=== PATIENT | male | born 1960 | race Caucasian/White ===

== ENCOUNTER → 2019-12-30 13:02 | Outpatient (CLI) | payer OTHER, SELFPAY ==
--- NOTE | 2019-12-30 13:24 | MRI_ITS ---
STUDY: MRI TEMPOROMANDIBULAR JOINTS REASON FOR EXAM: Male, 59 years old. TMJ syndrome, left sided jaw cracking/popping; jaw locks at times TECHNIQUE: Standardized fat and water weighted pulse sequences were obtained in the axial and oblique planes. COMPARISON: None. FINDINGS: Left TMJ: Cyst/erosions at the left ventricular condyle. Lack of translation during open mouth imaging suggests jaw locking. Degenerative articular disc in position during closed mouth view. Nontranslating disc during open mouth view. No muscle atrophy. Maxillary sinus disease. Right TMJ: Cyst/erosions at the right mandibular condyle. Markedly thinned right-sided temporal bone (sagittal image 25 series 7). Lack of translation during open mouth imaging. Degenerative articular disc in position during closed mouth view. Nontranslating disc during open mouth view. No muscle atrophy. Maxillary sinus disease. MRI/TMJ/Bilat IMPRESSION: Bilateral mandibular condyle cysts/erosions Markedly thinned right-sided temporal bone Lack of transition during open mouth view (jaw locking) Bilateral degenerative articular disks with nontranslation during open mouth view Bilateral maxillary sinus disease Electronically Signed: Kiran Solano DO at 15:29 EDT Tel , Service support ,
== END ==
PROVIDERS: PCP Family Medicine; Referring Provider Family Medicine; Visit Provider Family Medicine
DX: M26.603 Bilateral temporomandibular joint disorder, unspecified (principal)
CPT/HCPCS: 70336

== ENCOUNTER 2020-12-22 06:02 | Outpatient (RCR) | payer OTHER, SELFPAY ==
[2020-12-22] MEDS: COVID-19 VACC, MRNA(PFIZER)/PF 30 MCG/0.3 ML SYRINGE IM (14:40)
[2021-01-12] MEDS: COVID-19 VACC, MRNA(PFIZER)/PF 30 MCG/0.3 ML SYRINGE IM (14:24)
== END 2021-03-20 23:59 ==
LOC: IMMUN 06:02
PROVIDERS: PCP Family Medicine; Referring Provider Family Medicine; Visit Provider Family Medicine
DX: Z23 Encounter for immunization (principal)
CPT/HCPCS: 0001A; 0002A; 91300

== ENCOUNTER 2021-05-02 15:01 | Outpatient (RCR) | payer SELFPAY ==
--- NOTE | 2021-09-25 16:20 | HP.PT.NRP ---
ISAAC Cain SARAH was seen in my office for initial evaluation on . The following Plan of Care was established for this patient: This patient was last seen in our office 05/02/21. Pertinent comments regarding their Physical therapy will appear below: Pt. was seen for self pay DN. Pt. has not been seen in ~5 months and will be DC from PT at this point in time. At this point I will be discontinuing this patient from physical therapy. I would be happy to see this patient again in the future if found appropriate by the physician. Thank you! Don Cabrera, JATINDERT
== END 2021-05-02 19:00 | disposition home or self-care (01) ==
LOC: PT 15:01
PROVIDERS: PCP Family Medicine
DX: R69 Illness, unspecified (principal)

== ENCOUNTER 2021-08-20 05:40 | Day surgery (SDC) | payer OTHER, SELFPAY ==
[2021-08-20] VITALS (11 sets, daily range): BP systolic 113–143; BP diastolic 79–99; PULSE 72–95; RESP 16; TEMP 36.3–37; O2SAT 96–100; BMI 27.0
--- NOTE | 2021-08-20 | KNEE_PTH ---
PATIENT: ISAAC SARAH LOC: [facility] [place][id number] AGE/SX: 60/M ROOM: RE08/20/[address]: Dr. Nitesh Alvarado DO : 1960 BED: DIS: 08/20/2021 SPEC #: [id number] RECD: 08/20/21 10:43 STATUS: AMY REYumiko #: [id number] CARMELA: 08/20/21 00:[address]: Nitesh Alvarado DEPT: SURGICAL PATHOLOGY RECD BY: Abhijit Wooten ENTERED: 08/20/21 13:29 SP TYPE: TOTAL KNEE OTHR DR: Dr. Ian Walter MD Tissues: Knee, NOS Procedures: Decalcification bone/plaque Surgery Specimen Level IV HEADER OPERATION: Robotic assist right total knee replacement PRE-OP DIAGNOSIS: Right knee osteoarthritis TISSUE SUBMITTED: Debrided bone and tissue right knee MICROSCOPIC DIAGNOSIS Bone and tissue, right knee, total knee replacement/resection: Pieces of bone with degenerative osteoarthritic changes. Fibroadipose tissue, fibroconnective tissue and reactive synovial tissue. ARMAND:vini 08/23/2021 MICROSCOPIC DESCRIPTION Slides are reviewed. GROSS DESCRIPTION Received is one container designated debrided bone and tissue right knee. The specimen consists of multiple fragments of wade-yellow bone measuring in aggregate 11 x 10 x 4 cm. Also in the specimen container are multiple fragments of yellow-white soft tissue measuring in aggregate 9 x 8 x 3 cm. A number of bony fragments contain articular surfaces consistent with tibial plateau and femoral condyle and displaying prominent osteophyte formation, eburnation, and bone erosion. Baggage Handler sections are submitted in two cassettes as follows: 1 - soft tissue, 2 - bone after decalcification. / ARMAND:vini 08/20/21 TC:5 [facility]: [id number], [id number]
[2021-08-20] MEDS: Lactated Ringers 1,000 ML 15 ML IV ×2 (06:15→09:30)
[2021-08-20] MEDS: Acetaminophen 500 MG Tablet 1000 MG PO ×2 (06:49→14:00)
[2021-08-20] MEDS: Gabapentin 600 MG Tablet PO (06:49)
[2021-08-20 06:51] LABS: Bedside Glucose 125 mg/dL (70-110)
[2021-08-20 07:07] LABS: Magnesium 2.3 mg/dL (1.6-2.6)
[2021-08-20] MEDS: Cefazolin 2 GM in 0.9% Normal Saline 100 ML IV (08:25)
--- NOTE | 2021-08-20 10:51 | RAD_ITS ---
STUDY: X-RAY - RIGHT KNEE REASON FOR EXAM: Male, 60 years old. tkr -- in PACU TECHNIQUE: 2 view(s) of the knee. COMPARISON: None. FINDINGS: Normal visualized distal femur. Normal visualized proximal tibia and fibula. Normal proximal tibiofibular articulation. The patient is status post total knee replacement. There is good alignment. Postoperative soft tissue changes. RAD/Knee 1 or 2 Views IMPRESSION: Status post total knee replacement. Postoperative soft tissue changes. Electronically Signed: Dimitrios May MD at 15:53 EST , Service support ,
[2021-08-20] MEDS: Lactated Ringers 1,000 ML 999 ML IV (10:57)
--- NOTE | 2021-08-20 11:10 | SUR.PHASEI ---
NC 4L, ERAS protocol with etCO2 monitoring. Patient tolerating. Ice pack applied. Julius and scds. Awaiting block to be performed by anesthesia.
--- NOTE | 2021-08-20 11:52 | PCM.OPRPT ---
Report of Operation Date of Procedure: 08/20/21 Pre-Operative Diagnosis: OA right knee Post-Operative Diagnosis: same Surgery/Procedure Performed:: Right TKR Description of Surgical Findings:: Report of Operation Date of Procedure: 08/20/21 Preoperative Diagnosis: [right ] knee primary osteoarthritis Postoperative Diagnosis: [right ] knee primary osteoarthritis Operation: Robotic Assisted Knee Total Arthroplasty, [ right ] knee Surgeon: Dr Nitesh Alvarado DO Supervisor Finishing: Az Espinoza PA-C Anesthesia: spinal Anesthesiologist: Kiran Lopez M.D. Findings: Stable knee with good patella tracking Specimen(s): Bony cuts Complications: No intraoperative complications Estimated Blood Loss: 20 cc IV Fluids: 1000 cc crystalloid Implants Used: 1. [place] Triathlon press-fit CR size [address] [place] Triathlon size 6 tibia 3. 35 mm patella 4. 10 mm CS polyethylene Brief History Operative Indications: [ (60 y/o male) ] with history of [right ] knee osteoarthrosis with radiographic findings with loss of joint space, osteophyte formation and subchondral sclerosis. Failed conservative measures as mentioned in the H&P. Discussion of total knee arthroplasty as well as risk and benefits were discussed with the patient including but not limited to blood loss, DVTs, PEs, neurovascular damage, general risk of anesthesia including loss of life, and stiffness or instability were also discussed with the patient. Patient demonstrated understanding and was able to sign informed consent. Procedure: On the date of procedure, patient's [ right ] lower extremity was marked in the preoperative area. The patient was then taken back to the operating room where that patient was placed on the table in the supine position. All bony prominences were identified and well-padded. Anesthesia assumed control of the C-spine and airway throughout the remainder of the procedure. A tourniquet was placed on the [ right ] upper thigh and the leg was prepped in a sterile fashion. The surgeon then scrubbed at this time. Upon reentering the room, the [ right ] lower extremity was draped in a standard orthopedic fashion. A timeout was then called and everyone agreed upon the side, the site, the procedure to be performed, patient's identity and antibiotics given. Esmarch bandage was used to exsanguinate the extremity and the tourniquet was placed up to 250 mmHg with the knee in flexion. A midline skin incision was made and a sharp dissection was taken down through skin, subcutaneous tissue and fat. The standard medial parapatellar incision was made and the patella was subluxed laterally. An appropriate deep MCL release was done and the fat pad was resected. Our attention was then directed to the patella. The patella was everted and a flat resection was made. The knee was then flexed up and 2 femoral pins were placed inside the incision and 2 tibial pins were placed outside the incision in the medial tibia bicortically. Once this was completed, the 2 checkpoints in the femur and tibia were placed. Knee was then flexed up and the bony landmarks were registered. Once the was completed, the knee taken through range of motion and manually stressed allowing us to plan for an appropriate tibial cut. The robotic arm was brought into the field sterilely and checkpoint and saw were registered. Based on the patient's deformity, the tibial cut was made in [2 degrees varus ]. At this time, the tensioner was then placed in the joint and ligament tension was checked at 90 degrees and full extension. Based on the patient's ligamentous tension, appropriate adjustments were made to the operative plan and ligament releases were done. Once we were happy with our operative plan with balanced flexion and extension gaps, our attention was directed to the femur. The robot was brought into the field sterilely and registered. Posterior condylar cuts, anterior chamfer cuts and anterior cuts were appropriately made for a [size 6 ] femur. When these were completed, the saws were switched out in the distal femoral and posterior chamfer cuts were made. Protecting the soft tissue throughout this time. A [ size 6 ] base plate was selected. The knee was flexed to 90 degrees and soft tissues and posterior osteophytes were removed from the joint. 40 cc of the periarticular injection was injected into the posterior medial corner of the joint. The appropriate trials were then placed on the femur and tibia. A trial polyethylene was trialed to ensure proper balancing and stability of the knee. The appropriate tibial internal rotation was then marked with a bovie. Our attention was then directed to the patella. The lug holes were drilled and the patella trial was placed. Patellar tracking was checked and deemed appropriate. Once we were happy, lug holes were drilled for the femur and trial components were removed. The tibia was subluxed and pinned into place and the keel was punched and drilled appropriately. Final components were verified and opened. The wound was copiously irrigated with normal saline. The components were impacted into place with the tibia, femur and finally the patella. The trial poly component was placed and the knee was placed in full extension. The tracking, alignment and balance were verified and a [10 mm CS ] polyethylene component was placed. Once the final components were placed an Irrisept lavage was performed and the wound was copiously irrigated with normal saline solution and the periarticular injection was given. the wound was closed in a layer-hidalgo fashion using #1 vicryl interrupted sutures for the arthrotomy, 2-0 interrupted vicryl suture for the subcuticular layer and payal for final skin closure. A sterile compressive dressing was then placed. The patient was then awakened from anesthesia, transferred to the rhillrose and transferred to the PACU for recovery. My physician activities assistant was a vital part of this case. He was important in appropriate retraction during the case, and protection of soft tissues during bony cuts. His intimate knowledge of the case and my steps aided in safe and expedient completion of the procedure as well as appropriate position of the leg during the case. He was also vital in assisting with closure under my direct supervision. Due to the complexity of this case, robotic arm was used to assist in the surgery to improve accuracy and clinical outcomes. Post-op Plan: DVT ppx; ASA 81 mg BID, thigh high compression stockings Follow up: in office in 2 weeks for wound check PT: to start POD #0 at hospital, outpatient PT should be arranged. Preoperative antibiotic: Ancef 2 grams IV Nitesh Alvarado DO Surgeon: Nitesh Alvarado bacon stringer: Az Espinoza Type of Anesthesia: Spinal Anesthesiologist: Kiran Lopez Estimated Blood Loss (mL): 20 cc Fluids Replaced: 1000 cc crystalloid Admit VTE Documentation VTE Present on Admission: No VTE Mechan Device Prophylaxis: SCD's and Thigh High MICHELLE Hose VTE Pharm Prophylaxis ordered?: Yes
--- NOTE | 2021-08-20 14:10 | SUR.PHASEII ---
PATIENT C/O PAIN OVER BLADDER, HAS BEEN INCONTINENT A MODERATE AMOUNT. MAY STRAIGHT CATH PER DR MORALES. STRAIGHT CATH SUCCESSFUL, DRAINED 1300 ML CLEAR, YELLOW URINE. TOLERATED WELL. STATES HE FEELS MUCH IMPROVED. CHANGED ATTENDS, SKIN CARE PROVIDED.
--- NOTE | 2021-08-20 14:53 | SUR.PHASEII ---
C/O PAIN OVER BLADDER, FIRMNESS AND TENDERNESS NOTED. PAGED DR MORALES FOR STRAIGHT CATH ORDER.
== END 2021-08-20 17:20 | disposition home or self-care (01) ==
LOC: SDC 05:44 → AC 05:44
PROVIDERS: Anesthesiology; PCP Family Medicine; Referring Provider Orthopaedic Surgery; Visit Provider Orthopaedic Surgery
PROC: 0SRC0JZ Replacement of Right Knee Joint with Synthetic Substitute, Open Approach (ICD-10-PCS; CPT 27447; principal; 2021-08-20 08:00)
DX: M17.11 Unilateral primary osteoarthritis, right knee (principal); H91.93 Unspecified hearing loss, bilateral; Z97.4 Presence of external hearing-aid; Z87.891 Personal history of nicotine dependence
CPT/HCPCS: 01402; 27447; 64445; 76942; S2900; 73560; 82962; 83735; 88305; 88311; 97162; C1776; J7120

== ENCOUNTER → 2022-05-31 | Outpatient (CLI) | payer OTHER, SELFPAY | END | disposition home or self-care (01) | LOC: BIMLAB 14:14 | PROVIDERS: PCP Nurse Practitioner Family; Referring Provider Nurse Practitioner Family; Visit Provider Nurse Practitioner Family | DX: Z00.00 Encounter for general adult medical examination without abnormal findings (principal) | CPT/HCPCS: 36415 ==

== ENCOUNTER → 2023-12-10 | Outpatient (CLI) | payer OTHER, SELFPAY ==
[2023-12-10 12:57] LABS: ALB/GLOB Ratio 1.1 RATIO (0.9-2.4); AST(SGOT) 25 U/L (15-37); Alanine Aminotransfer ALT/SGPT 27 U/L (16-61); Albumin, Serum 3.7 g/dL (3.2-5.0); Alkaline Phosphatase 85 U/L (45-117); Anion Gap 5 (5-15); BUN 10 mg/dL (7-18); BUN/Creat Ratio 10.9 RATIO (10-20); Calcium,Total 9.1 mg/dL (8.5-10.1); Chloride 110 mmol/L (98-107); Cholesterol 147 mg/dL (200); Creatinine, Serum 0.92 mg/dL (0.70-1.30); EST Glomerular Filtration Rate 88 mL/min (>60); Est Glom Filt Rate - Afr Amer 107 mL/min (>60); Globulin 3.5 g/dL (2.2-4.2); Glucose 75 mg/dL (74-106); High Density Lipoprotein 54 mg/dL; Potassium 4.4 mmol/L (3.5-5.1); Protein, Total 7.2 g/dL (6.4-8.2); Sodium Level 142 mmol/L (136-145); Triglycerides 46 mg/dL; Very Low Density Lipoprotein 9 mg/dL (5-40)
[2023-12-10 13:14] LABS: Hemoglobin A1c 5.3 % (3.8-5.6)
== END | disposition home or self-care (01) ==
LOC: BIMLAB 09:37
PROVIDERS: PCP Family Medicine; Visit Provider Family Medicine
DX: R53.83 Other fatigue (principal); Z86.79 Personal history of other diseases of the circulatory system
CPT/HCPCS: 36415; 80053; 80061; 83036

== ENCOUNTER → 2023-12-17 | Outpatient (CLI) | payer OTHER, SELFPAY ==
[2023-12-17 12:30] LABS: Absolute Lymphocyte Count 1.23 X10^3/uL (0.83-4.51); Absolute Neutrophil Count 3.8 X10^3/uL (2.0-7.7); Basophil# 0.06 X10^3/uL; Eosinophil# 0.22 X10^3/uL; Eosinophils% 3.8 % (0-5); Hematocrit 42.7 % (40-54); Hemoglobin 14.4 g/dL (13.0-16.5); Lymphocyte # 1.23 X10^3/ul (0.83-4.51); Lymphocyte % 21.1 % (19-41); Mean Corp Hgb Conc 33.7 g/dL (32-36); Mean Corpuscular Hgb 31.6 pg (27.0-32.0); Mean Corpuscular Volume 93.8 fL (80-94); Mean Platelet Vol. 9.4 fl (6.2-12.0); Monocyte# 0.52 X10^3/uL; Monocyte% 8.9 % (0-10); NRBC Flagged by Analyzer 0 % (0-5); Neutrophil # 3.78 X10^3/uL (2.7-7.7); Platelet Count 332 K/mm3 (150-450); RBC Distribution Width CV 12.5 % (11.6-14.6); RBC Distribution Width SD 43.2 fl (35.1-43.9); Red Blood Count 4.55 M/mm3 (4.6-6.2); White Blood Count 5.8 K/mm3 (4.4-11.0)
[2023-12-17 12:58] LABS: PSA,Total - Annual Screen 0.68 ng/mL (0.00-4.00)
== END | disposition home or self-care (01) ==
LOC: BIMLAB 09:37
PROVIDERS: PCP Family Medicine; Visit Provider Family Medicine
DX: Z12.5 Encounter for screening for malignant neoplasm of prostate (principal); R53.83 Other fatigue
CPT/HCPCS: 36415; 84153; 85025; G0103

== ENCOUNTER → 2024-03-09 | Outpatient (CLI) | payer OTHER, SELFPAY ==
[2024-03-09 12:58] LABS: ALB/GLOB Ratio 1.4 RATIO (0.9-2.4); AST(SGOT) 24 U/L (15-37); Alanine Aminotransfer ALT/SGPT 20 U/L (16-61); Albumin, Serum 3.9 g/dL (3.2-5.0); Alkaline Phosphatase 77 U/L (45-117); Anion Gap 7 (5-15); BUN 10 mg/dL (7-18); BUN/Creat Ratio 10.9 RATIO (10-20); Calcium,Total 9.2 mg/dL (8.5-10.1); Chloride 107 mmol/L (98-107); Creatinine, Serum 0.91 mg/dL (0.70-1.30); EST Glomerular Filtration Rate 89 mL/min (>60); Est Glom Filt Rate - Afr Amer 107 mL/min (>60); Globulin 2.8 g/dL (2.2-4.2); Glucose 84 mg/dL (74-106); Potassium 4.5 mmol/L (3.5-5.1); Protein, Total 6.7 g/dL (6.4-8.2); Sodium Level 139 mmol/L (136-145)
== END | disposition home or self-care (01) ==
LOC: BIMLAB 08:11
PROVIDERS: PCP Family Medicine; Visit Provider Family Medicine
DX: Z86.79 Personal history of other diseases of the circulatory system (principal)
CPT/HCPCS: 36415; 80053

== ENCOUNTER 2024-12-01 08:30 | Day surgery (SDC) | payer MEDICARE, SELFPAY ==
[2024-12-01] VITALS (7 sets, daily range): BP systolic 120–133; BP diastolic 82–122; PULSE 55–68; RESP 16; TEMP 36–36.2; O2SAT 95–99; BMI 29.6
--- NOTE | 2024-12-01 09:34 | PRE.ANES_ITS ---
ASA Classification* ASA Classification ASA Classification: 2 Assessment & Plan Anesthesia* Anesthesia Assessment Anesthesia Assessment: Discussed sedation and/or anesthesia options, risks, benefits, and alternatives with patient/parents/legal guardian/POA. Questions invited. The patient/parents/legal guardian/POA seems to understand and agrees to proceed with anesthesia plan. Reviewed the physical assessment, medical history, allergy history and patient home medications list prior to surgery/procedure/anesthetic and documented any changes. Performed airway and anesthesia risk assessments. Anesthesia Type Anesthesia Type: MAC History Source History Obtained from:: Patient and Chart Anesthesia Focused Assessment* Temperature: 97.1 F Pulse Rate: 68 Blood Pressure: 133/89 Respiratory Rate: 16 Pulse Ox: 99 Oxygen Delivery Method: Room Air Airway Assessment Mouth opens: >3 cm Mallampati Score: III Teeth Condition: Missing (Missing 1 right upper molar.) Neck Range of motion (ROM): Full ROM Focused Labs Anesthesia Preop lab: CBC WBC 5.8 K/mm3 (4.4-11.0) 12/17/23 09:37 12/17/23 RBC 4.55 M/mm3 (4.6-6.2) L 12/17/23 09:37 12/17/23 Hgb 14.4 g/dL (13.0-16.5) 12/17/23 09:37 12/17/23 Hct 42.7 % (40-54) 12/17/23 09:37 12/17/23 Plt Count 332 K/mm3 (150-450) 12/17/23 09:37 12/17/23 CHEMISTRY Potassium 4.5 mmol/L (3.5-5.1) 03/09/24 08:11 03/09/24 Sodium 139 mmol/L (136-145) 03/09/24 08:11 03/09/24 Magnesium 2.3 mg/dL (1.6-2.6) 08/20/21 06:30 08/20/21 BUN 10 mg/dL (7-18) 03/09/24 08:11 03/09/24 Creatinine 0.91 mg/dL (0.70-1.30) 03/09/24 08:11 03/09/24 Glucose 84 mg/dL (74-106) 03/09/24 08:11 03/09/24 POC Glucose 125 mg/dL (70-110) H 08/20/21 06:38 08/20/21 COAG Pre-Assessment Diagnosis/Proposed Procedure Planned Operative Procedure(s): Colonoscopy Anesthesia History 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 When Was Last Pacemaker Check QUESTION #4 FULL TEXT: You/Your Family Experience fever (hyperthermia) with Anesthesia Last Oral Intake Last Oral intake: Last Oral Intake NPO since 05:45 12/01/24 08:50 Meds taken in AM with sips of water? 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 Female No 11/29/24 12:44 HX of Motion Sickness No 11/29/24 12:44 HX of N/V After Surgery No 11/29/24 12:44 Non-Smoker Yes 11/29/24 12:44 Duration of Surgery greater No 11/29/24 12:44 than 60 minutes Number of Risk Factors 1 11/29/24 12:44 PONV Score Low Risk 11/29/24 12:44 Height & Weight Height & Weight: Anesthesia: Height & Weight Height 6 ft 1 in 12/01/24 08:50 Weight: 102 kg 12/01/24 08:50 Body Mass Index (BMI) 29.6 12/01/24 08:50 Respiratory Assessment Respiratory Assessment - router operator: Respiratory Tract Infection Hx - router operator Hx Respiratory Tract Infection No 11/29/24 12:44 STOP Sleep Apnea STOP Sleep Apnea - router operator: STOP Sleep Apnea - router operator Hx Hypertension No 11/29/24 12:44 Hx Sleep Apnea No 11/29/24 12:44 CPAP BIPAP Do you snore loudly (louder No 11/29/24 12:44 than talking or can be heard Do you often feel tired/ No 11/29/24 12:44 fatigued/ sleepy during daytime? Has anyone observed you stop No 11/29/24 12:44 breathing during sleep? STOP Results Negative 11/29/24 12:44 QUESTION #5 FULL TEXT : Do you snore loudly (louder than talking or can be heard through closed doors)? 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 Specify any problems Hx of Preganancy in last 3 N/A 11/29/24 12:44 Months Nurse Filling Out Transfusion MGRITERI 11/29/24 12:44 & Questions: Date: 11/29/24 11/29/24 12:44 Time: 12:46 11/29/24 12:44 Patient unable to answer at this time (ie. confused, unrespo /Reproduction History /Reproductive History - router operator: /Reproductive Hx- router operator Hx Now Gestational Age (in weeks): EDC: Hx Hx Para Hx Section SAB No 05/30/24 07:50 PFSH Medical History Restless legs Heartburn Encounter for preventative adult health care examination Hx of degenerative disc disease Hx of osteoarthritis History of hearing problem History of back problems Wears hearing aid Wears glasses Arthritis Former smoker Leg cramps History of pain when walking History of stress test Home Medications ?Medication ?Instructions ?Recorded ?Last Taken ?Type meloxicam 15 mg tablet 15 mg PO DAILY PRN arthritis #90 09/15/24 Unknown Rx tabs aspirin 81 mg tablet,delayed 81 mg PO QDAY 09/22/24 Un known History release (Adult Low Dose Aspirin) diphenhydramine HCl 25 mg capsule 25 mg PO Q8H PRN sle ep 11/29/24 Unknown History (Benadryl) pantoprazole 40 mg tablet,delayed 40 mg PO QDAY #30 ta bs 11/30/24 Unknown Rx release Allergy/AdvReac Type Severity Reaction Status Date / Time No Known Allergies Allergy Verified 12/01/24 08:47 Family History Daughter Anemia Anxiety Thyroid disorder Grandmother Colon cancer Paternal Mother Diabetes Myocardial infarction Heart disease Hypertension Father Dementia Brother Diabetes Surgical History Hx of colonoscopy History of total right knee replacement History of left knee replacement Hx of rotator cuff surgery Hx of rotator cuff surgery Social History household members: spouse housing: house current occupational status: retired current occupation: [employer] sexually active: Yes Smoking Status: Former smoker quit status: quit date established alcohol intake: current alcohol intake frequency: holidays/special occasions only substance use type: does not use what type of physical activity do you participate in: walking and bicycling frequency: 3-4 times per week seatbelt use: always do you feel safe at home: Yes Review of Systems (Anesthesia) ROS Narrative System reviewed and no additional complaints, except as documented.
--- NOTE | 2024-12-01 09:45 | COLBX_PTH ---
PATIENT: ISAAC SARAH LOC: [place] U#:[id number] AGE/SX: 64/M ROOM: RE12/01/[address]: Dr. Aditya Cummings DO : 1960 BED: DIS: 12/01/2024 SPEC #: [id number] RECD: 12/01/24 13:36 STATUS: AMY GALEN #: [id number] CARMELA: 12/01/24 09:[address]: Aditya Cummings DEPT: SURGICAL PATHOLOGY RECD BY: Solomon Spangler ENTERED: 12/01/24 14:21 SP TYPE: COLON BX OTHR DR: Dr. Joe Squires, Tissues: Ascending colon Procedures: Surgery Specimen Level IV HEADER OPERATION: Colonoscopy with biopsy PRE-OP DIAGNOSIS: Encounter for screening for malignant neoplasm of colon TISSUE SUBMITTED: Ascending colon polyp biopsy MICROSCOPIC DIAGNOSIS Ascending colon polyp, biopsy: Tubular adenoma. 12/02/2024 MICROSCOPIC DESCRIPTION Slides are reviewed. GROSS DESCRIPTION Received in fixative is one container labeled with the patient's name and designated Ascending colon polyp biopsy. The specimen consists of two irregular fragments of light wade soft tissue that in aggregate measure 0.3 x 0.2 x 0.1 cm. The specimen is totally submitted in one cassette. 12/01/2024 TC:1 CPT:31799
--- NOTE | 2024-12-01 10:18 | PCM.HP.STD ---
HPI - General General Date of Admission: 12/01/24 Date of Service: 12/01/24 Chief Complaint: Screening colonoscopy HPI Narrative ISAAC SARAH, is a 64 M who presents today for screening colonoscopy. He has not had a colonoscopy in approximately 19 years. Already has a family history of colon cancer. He has a past medical history of gastroesophageal reflux disease for which is controlled on pantoprazole and some mild arthritis which is controlled on meloxicam. [facility] Medical History Restless legs Heartburn Encounter for preventative adult health care examination Hx of degenerative disc disease Hx of osteoarthritis History of hearing problem History of back problems Wears hearing aid Wears glasses Arthritis Former smoker Leg cramps History of pain when walking History of stress test Home Medications ?Medication ?Instructions ?Recorded ?Last Taken ?Type meloxicam 15 mg tablet 15 mg PO DAILY PRN arthritis #90 09/15/24 Unknown Rx tabs aspirin 81 mg tablet,delayed 81 mg PO QDAY 09/22/24 Unknown History release (Adult Low Dose Aspirin) diphenhydramine HCl 25 mg capsule 25 mg PO Q8H PRN sleep 11/29/24 Unknown History (Benadryl) pantoprazole 40 mg tablet,delayed 40 mg PO QDAY #30 tabs 11/30/24 Unknown Rx release Allergy/AdvReac Type Severity Reaction Status Date / Time No Known Allergies Allergy Verified 12/01/24 08:47 Family History Daughter Anemia Anxiety Thyroid disorder Grandmother Colon cancer Paternal Mother Diabetes Myocardial infarction Heart disease Hypertension Father Dementia Brother Diabetes Surgical History Hx of colonoscopy History of total right knee replacement History of left knee replacement Hx of rotator cuff surgery Hx of rotator cuff surgery Social History household members: spouse housing: house current occupational status: retired current occupation: [employer] sexually active: Yes Smoking Status: Former smoker quit status: quit date established alcohol intake: current alcohol intake frequency: holidays/special occasions only substance use type: does not use what type of physical activity do you participate in: walking and bicycling frequency: 3-4 times per week seatbelt use: always do you feel safe at home: Yes ROS Constitutional Constitutional: Denies fatigue, fever(s), poor appetite, weight gain or weight loss Gastrointestinal Gastrointestinal: Denies belching, bloating, change in bowel habits, change in stool character, chewing difficulty, coffee ground emesis, constipation, cramping, diarrhea, dyspepsia, dysphagia, early satiety, excessive flatus, fecal incontinence, heartburn, hematemesis, hematochezia, hemorrhoids, loose stools, melena, nausea, odynophagia, rectal bleeding, tenesmus, vomiting or weight changes Vital Signs Vital Signs Vital Signs: 12/01/24 08:50 12/01/24 08:50 12/01/24 09:39 Temperature 97.1 F L 97.1 F L Temperature Source Temporal Pulse Rate 68 68 Respiratory Rate 16 16 Respiratory Pattern Normal Blood Pressure 133/89 H 133/89 H Blood Pressure Mean 103 Blood Pressure Source Monitor Blood Pressure Position Sitting Blood Pressure Location Left Arm Pulse Ox 99 99 Oxygen Delivery Method Room Air Room Air Weight Weight: 224 lb 13.944 oz Body Mass Index (BMI) 29.6 Physical Exam Const alert, oriented x3, no apparent distress and healthy appearing General Appearance: cooperative GI normal to inspection, nondistended, normoactive bowel sounds, soft to palpation, non-tender and non-distended Percussion: normal to percussion Rectal Exam: deferred Assessment & Plan Assessment/Plan (1) Encounter for screening for malignant neoplasm of colon: PLAN: He was explained alternatives , benefits, risks of the procedure including not withstanding bleeding, infection, sepsis, perforation, need for emergent urgent . He will have an ASA of 3.
--- NOTE | 2024-12-01 10:54 | PCM.POST.ANE ---
Anesthesia: Postop Eval I Current Vital Signs Temperature: 97 F Pulse Rate: 68 Blood Pressure: 132/82 Respiratory Rate: 16 Pulse Ox: 96 Oxygen Delivery Method: Room Air Assessment Airway patent: Yes Spontaneous unlabored respirations: Yes Mental status: Asleep nausea: No Vomiting: No Anesthesia Complication: No Fluid Hydration Crystalloid volume administer (ml): 40 Total IV fluid infused: 40 Progress Note Anesthesia document: Postop Eval 1 completed: Yes
--- NOTE | 2024-12-01 11:03 | OP.CCLET_ITS ---
12/01/2024 Joe Squires Re : Colonoscopy procedure for Rex Muñoz Dear Dr. Squires This procedure was performed on Sunday, December 01, 2024. My impressions and recommendations are as follows: Impressions : - Preparation of the colon was poor. - Diverticulosis in the rectum, in the recto-sigmoid colon, in the sigmoid colon, in the descending colon, at the splenic flexure, in the transverse colon, at the hepatic flexure and in the ascending colon. - Stool in the rectum, in the recto-sigmoid colon, in the sigmoid colon, in the descending colon, at the splenic flexure and in the transverse colon. - One 7 mm polyp in the ascending colon, removed with a jumbo cold forceps. Resected and retrieved. Recommendations : - Repeat colonoscopy in 1 year because the bowel preparation was suboptimal. - Continue present medications. My findings are described in the full procedure note, which is enclosed. If I can be of further assistance, please feel free to contact me at . Sincerely, Aditya Cummings, 12/01/2024 11:02:46 AM This report has been signed electronically.
--- NOTE | 2024-12-01 11:03 | OP.COLON_ITS ---
Patient Name: Rex Muñoz Procedure Date: 12/01/2024 10:25 AM Date of : 1960 Age: 64 Procedure: Colonoscopy Indications: Screening for colorectal malignant neoplasm Providers: Aditya Cummings DO Referring MD: Joe Squires Medicines: Monitored Anesthesia Care Patient Profile: Refer to note in patient chart for documentation of history and physical. Last Colonoscopy: 3 years ago. Last Colonoscopy: 10 years ago. Complications: No immediate complications. Procedure: Pre-Anesthesia Assessment: - Prior to the procedure, a History and Physical was performed, and patient medications and allergies were reviewed. The patient is competent. The risks and benefits of the procedure and the sedation options and risks were discussed with the patient. All questions were answered and informed consent was obtained. Patient identification and proposed procedure were verified by the physician in the pre-procedure area. Mental Status Examination: alert and oriented. Airway Examination: normal oropharyngeal airway and neck mobility. Respiratory Examination: clear to auscultation. CV Examination: normal. Prophylactic Antibiotics: The patient does not require prophylactic antibiotics. Prior Anticoagulants: The patient has taken no anticoagulant or antiplatelet agents except for NSAID medication. ASA Grade Assessment: II - A patient with mild systemic disease. After reviewing the risks and benefits, the patient was deemed in satisfactory condition to undergo the procedure. The anesthesia plan was to use monitored anesthesia care (MAC). Immediately prior to administration of medications, the patient was re-assessed for adequacy to receive sedatives. The heart rate, respiratory rate, oxygen saturations, blood pressure, adequacy of pulmonary ventilation, and response to care were monitored throughout the procedure. The physical status of the patient was re-assessed after the procedure. After I obtained informed consent, the scope was passed under direct vision. Throughout the procedure, the patient's blood pressure, pulse, and oxygen saturations were monitored continuously. The colonoscope was introduced through the anus and advanced to the cecum, identified by appendiceal orifice and ileocecal valve. The colonoscopy was performed without difficulty. The patient tolerated the procedure well. The quality of the bowel preparation was poor. The ileocecal valve, appendiceal orifice, and rectum were photographed. Scope In: 10:28:37 AM Scope Withdrawal Time 0 hours 8 minutes 35 seconds Scope Out: 10:45:54 AM Total Procedure Duration Time 0 hours 17 minutes 17 seconds Findings: The perianal and digital rectal examinations were normal. Multiple small and large-mouthed diverticula were found in the rectum, recto-sigmoid colon, sigmoid colon, descending colon, splenic flexure, transverse colon, hepatic flexure and ascending colon. Stool was found in the rectum, in the recto-sigmoid colon, in the sigmoid colon, in the descending colon, at the splenic flexure and in the transverse colon. A 7 mm polyp was found in the ascending colon. The polyp was sessile. The polyp was removed with a jumbo cold forceps. Resection and retrieval were complete. Verification of patient identification for the specimen was done. Estimated blood loss was minimal. Impression: - Preparation of the colon was poor. - Diverticulosis in the rectum, in the recto-sigmoid colon, in the sigmoid colon, in the descending colon, at the splenic flexure, in the transverse colon, at the hepatic flexure and in the ascending colon. - Stool in the rectum, in the recto-sigmoid colon, in the sigmoid colon, in the descending colon, at the splenic flexure and in the transverse colon. - One 7 mm polyp in the ascending colon, removed with a jumbo cold forceps. Resected and retrieved. Recommendation: - Repeat colonoscopy in 1 year because the bowel preparation was suboptimal. - Continue present medications. Procedure Code(s): --- Professional --- 56179, Colonoscopy, flexible; with biopsy, single or multiple CPT copyright 2021 [employer]. All rights reserved. The codes documented in this report are preliminary and upon forestry scientist review may be revised to meet current compliance requirements. Aditya Cummings DO 12/01/2024 11:02:46 AM This report has been signed electronically. Number of Addenda: 0 Note Initiated On: 12/01/2024 10:25 AM
--- NOTE | 2024-12-01 11:40 | PCM.POSTANE2 ---
Anesthesia Postop Eval I Sum Postop Eval Completion status Anesthesia document: Postop Eval 1 completed: Yes Anesthesia Postop Eval I Summary Anesthesia Postop Eval I Summary: Anesthesia Postop Eval I: Assessment Summary Airway patent Yes 12/01/24 10:55 [email or web address] Spontaneous unlabored Yes 12/01/24 10:55 [email or web address] respirations Mental status Asleep 12/01/24 10:55 [email or web address] nausea No 12/01/24 10:55 [email or web address] Vomiting No 12/01/24 10:55 [email or web address] Anesthesia Postop Eval I: Fluid Summary Crystalloid volume administer 40 12/01/24 10:55 [email or web address] (ml) Colloids volume administered ( ml) Blood Product volume administered (ml) Total IV fluid infused 40 12/01/24 10:55 [email or web address] Anesthesia Postop Eval I: Summary Notes Anesthesia Complication No 12/01/24 10:55 [email or web address] Anesthesia Complication Comment: Post-operative progress note Anesthesia: Postop Eval II Evaluation Mental status: Awake and Calm Pain Level: 0 nausea: No Vomiting: No
== END 2024-12-01 11:44 | disposition home or self-care (01) ==
PROVIDERS: PCP Family Medicine; Referring Provider Family Medicine; Visit Provider Internal Medicine Gastroenterology
PROC: 0DJD8ZZ Inspection of Lower Intestinal Tract, Via Natural or Artificial Opening Endoscopic (ICD-10-PCS; CPT 45378; principal; 2024-12-01 09:40)
DX: Z12.11 Encounter for screening for malignant neoplasm of colon (principal); D12.2 Benign neoplasm of ascending colon; K57.30 Diverticulosis of large intestine without perforation or abscess without bleeding; K21.9 Gastro-esophageal reflux disease without esophagitis; Z79.82 Long term (current) use of aspirin; Z79.899 Other long term (current) drug therapy; Z87.891 Personal history of nicotine dependence
CPT/HCPCS: 45380; 88305; A4216; J2405

== ENCOUNTER → 2025-01-25 | Outpatient (CLI) | payer MEDICARE, SELFPAY ==
--- NOTE | 2025-01-25 09:29 | RAD_ITS ---
PROCEDURE: CHEST PA AND LATERAL 01/25/2025 REASON FOR EXAM: SOB TECHNIQUE: Frontal and lateral views of the chest. COMPARISON: None available FINDINGS: The lungs appear clear. Pulmonary vascularity appears within limits. No pleural effusion. The cardiac and mediastinal contours appear within limits. Mid to lower thoracic spine spondylosis/discogenic change. RAD/Chest PA and Lateral IMPRESSION: No evidence of acute disease. Reading Location: [id number]
[2025-01-25 12:38] LABS: Absolute Neutrophil Count 2.5 X10^3/uL (2.0-7.7); Basophil# 0.05 X10^3/uL; Basophil% 1.2 % (0-1); Eosinophil# 0.28 X10^3/uL; Eosinophils% 6.5 % (0-5); Hematocrit 40.7 % (40-54); Lymphocyte % 25.7 % (19-41); Mean Corp Hgb Conc 34.4 g/dL (32-36); Mean Corpuscular Hgb 32.6 pg (27.0-32.0); Mean Corpuscular Volume 94.9 fL (80-94); Mean Platelet Vol. 9.5 fl (6.2-12.0); Monocyte# 0.38 X10^3/uL; Monocyte% 8.9 % (0-10); NRBC Flagged by Analyzer 0 % (0-5); Neutrophil # 2.47 X10^3/uL (2.7-7.7); Neutrophil % 57.7 % (47-70); Platelet Count 277 K/mm3 (150-450); RBC Distribution Width CV 12.6 % (11.6-14.6); RBC Distribution Width SD 43.8 fl (35.1-43.9); Red Blood Count 4.29 M/mm3 (4.6-6.2); White Blood Count 4.3 K/mm3 (4.4-11.0)
[2025-01-25 12:47] LABS: D-Dimer Quantitative (DVT/PE) 0.27 FEU/ug/m (0.27-0.49)
[2025-01-25 13:12] LABS: ALB/GLOB Ratio 1.6 RATIO (0.9-2.4); AST(SGOT) 27 U/L (<=37); Alanine Aminotransfer ALT/SGPT 15 U/L (<=46); Albumin, Serum 4.4 g/dL (3.4-4.8); Alkaline Phosphatase 76 U/L (40-129); Anion Gap 10 (5-15); BUN 10 mg/dL (4-19); Calcium,Total 9.6 mg/dL (7.6-11.0); Carbon Dioxide 24.1 mmol/L (21.0-32.0); Chloride 106 mmol/L (98-108); Cholesterol 157 mg/dL (<=200); Creatinine, Serum 0.94 mg/dL (0.70-1.20); EST Glomerular Filtration Rate 90 (>60); Globulin 2.8 g/dL (2.2-4.2); Glucose 93 mg/dL (70-99); High Density Lipoprotein 61 mg/dL; Low Density Lipoprotein Calc. 88 mg/dL; Potassium 4.6 mmol/L (3.3-5.1); Protein, Total 7.1 g/dL (5.9-8.4); Sodium Level 140 mmol/L (133-145); Total Bilirubin 0.62 mg/dL (0.00-1.30); Triglycerides 38 mg/dL; Very Low Density Lipoprotein 8 mg/dL (5-40); cholesterol:hdl ratio screen 2.57
[2025-01-26 12:28] LABS: Troponin T High Sensitivity 16 ng/L (<=22)
== END | disposition home or self-care (01) ==
PROVIDERS: PCP Family Medicine; Referring Provider Internal Medicine; Visit Provider Internal Medicine
DX: Z13.6 Encounter for screening for cardiovascular disorders (principal); R06.02 Shortness of breath
CPT/HCPCS: 36415; 71046; 80053; 80061; 84484; 85025; 85379

== ENCOUNTER 2025-06-19 09:41 | Emergency (ER) | payer MEDICARE, SELFPAY ==
[2025-06-19 09:42] VITALS: BP 158/92; PULSE 57; RESP 16; TEMP 37; O2SAT 99; BMI 30.4
--- NOTE | 2025-06-19 10:16 | CT_ITS ---
PROCEDURE: ABDOMEN/PELVIS W IV CONT ONLY 06/19/2025 REASON FOR EXAM: RLQ PAIN Right lower quadrant pain. TECHNIQUE: Procedure Code: [id number] Modality: CT Procedure: ABDOMEN/PELVIS W IV CONT ONLY Coronal and Sagittal reconstruction series were provided. CONTRAST: Isovue 370 VOLUME: 100 mL One or more dose reduction techniques were used (e.g., Automated exposure control, adjustment of the mA and/or kV according to patient size, use of iterative reconstruction technique. RADIATION DOSE SUMMARY: CTDlvol: 25 mGy DLP: 1350 mGycm COMPARISON: None. FINDINGS: Lung bases: Mild dependent atelectasis. ABDOMEN Liver: Small hepatic hypodensities likely cysts. Negative. Biliary system: Negative. Negative for intrahepatic or extrahepatic ductal dilatation. Gallbladder: Negative. Negative for cholecystitis. Spleen: Negative. Pancreas: Negative. Adrenals: Negative. Kidneys: Negative. Negative for kidney stones, cysts or masses. Bowel: Moderate increased stool throughout the colon. Mild diverticulosis. Negative for small or large-bowel obstruction. Appendix: Negative. Best seen on coronal images. Vasculature: Mild atherosclerotic vascular calcifications of the abdominal aorta and its branches. Peritoneum / Retroperitoneum: Negative. PELVIS Lymph nodes: Negative for inguinal or iliac adenopathy. Bladder: Negative. Reproductive Organs: Prostate normal for age. Bones and Soft Tissues: Moderate and degenerative changes of the lumbar spine hips and pelvis. Most prominent in the lower lumbar spine. CT/Abdomen/Pelvis W IV Cont ONLY IMPRESSION: Constipation. Negative for acute intra-abdominal or pelvic pathology. Reading Location: [id number]
--- NOTE | 2025-06-19 10:16 | EDS_ITS ---
HPI HPI - GI History of Present Illness Chief Complaint: Abd Pain Informant: patient Narrative Narrative: Patient is a 64-year-old male with history of GERD, hypertension and degenerative disc disease presenting with right lower quadrant abdominal pain. States he felt fine yesterday. Woke up with his lower abdominal pain has been more diffuse however then started to localize more to the right lower quadrant. Had some associated nausea but no vomiting. Has had some increased indigestion today as well. Took a Pepcid. States he had a normal bowel movement yesterday. Denies any black or blood in the stool. States he has never had any like this before. States the pain is now mild but still present. Came in for further evaluation. Denies any urinary symptoms or testicular pain. Denies any known history of diverticulitis or kidney stones. Had a colonoscopy earlier this year and he states he had 2 polyps but otherwise it was normal. Denies any history of any abdominal surgeries. Notes he had hamburger helper for dinner last night. PFSH PFS Medical History COVID-19 Restless legs Heartburn Encounter for preventative adult health care examination Hx of degenerative disc disease Hx of osteoarthritis History of hearing problem History of back problems Wears hearing aid Wears glasses Arthritis Former smoker Leg cramps History of pain when walking History of stress test Home Medications ?Medication ?Instructions ?Recorded ?Last Taken ?Type meloxicam 15 mg tablet 15 mg PO DAILY PRN arthritis #90 09/15/24 Unknown Rx tabs aspirin 81 mg tablet,delayed 81 mg PO QDAY 09/22/24 Un known History release (Adult Low Dose Aspirin) pantoprazole 40 mg tablet,delayed 40 mg PO QDAY #30 ta bs 11/30/24 Unknown Rx release zquil PO HS PRN 01/25/25 Unknown H istory Allergy/AdvReac Type Severity Reaction Status Date / Time No Known Allergies Allergy Verified 06/19/25 09:41 Family History Daughter Anemia Anxiety Thyroid disorder Grandmother Colon cancer Paternal Mother Diabetes Myocardial infarction Heart disease Hypertension Father Dementia Brother Diabetes Surgical History History of left shoulder replacement History of right shoulder replacement Hx of colonoscopy History of total right knee replacement History of left knee replacement Hx of rotator cuff surgery Hx of rotator cuff surgery Social History household members: spouse housing: house current occupational status: retired current occupation: [employer] sexually active: Yes Smoking Status: Former smoker quit status: quit date established alcohol intake: current alcohol intake frequency: holidays/special occasions only substance use type: does not use what type of physical activity do you participate in: walking and bicycling frequency: 3-4 times per week seatbelt use: always do you feel safe at home: Yes ROS ROS ED Constitutional Constitutional ED: Denies chills or fever(s) Cardiovascular Cardiovascular: Denies chest pain Respiratory/Chest Respiratory/Chest: Denies cough or dyspnea Gastrointestinal Gastrointestinal: Reports abdominal pain and nausea; Denies constipation, diarrhea, melena or vomiting Genitourinary Genitourinary ED: Denies dysuria, hematuria or urinary frequency Musculoskeletal Musculoskeletal: Reports back pain and other Details: Reports some chronic low back pain, no acute change Integumentary Denies rash Neurologic Neurologic: Denies paresthesias or weakness Hematologic/Lymphatic Hematologic/Lymphatic: Denies easy bleeding or easy bruising EXAM Physical Exam Const Vital Signs: 06/19/25 09:42 06/19/25 11:41 Temperature 98.6 F Temperature Source Temporal Pulse Rate 57 L 80 Respiratory Rate 16 Blood Pressure 158/92 H 138/70 H Blood Pressure Mean 114 92 Pulse Ox 99 100 Oxygen Delivery Method Room Air Positive well nourished and well developed General Appearance ED: well developed and NAD; Negative for pallor HEENT Reports moist mucous membranes Neck supple Resp normal respiratory effort and clear to auscultation bilaterally Cardio regular rate and regular rhythm GI non-distended Inspection: Negative for abdominal distention Auscultation: normoactive bowel sounds Palpation: soft and tender RLQ; Negative for guarding, rigid, hernia or mass Back/Spine no CVA tenderness Extremity full ROM Neuro moves all extremities Sensorium / Orientation: alert Motor Exam: Negative for general weakness Psych mental status grossly normal and thought process normal Skin no wounds General Skin Exam: Negative for jaundice or pallor MDM MDM MDM Narrative Medical decision making narrative: Colonoscopy from 12/01/2024 reviewed?patient has diverticulosis throughout. 7 mm air polyp in the ascending colon which was resected. Patient evaluated for right lower quadrant/lower abdominal pain. Differential includes not limited to appendicitis, hernia, diverticulitis, constipation, bowel obstruction, renal colic, urinary tract infection. Currently symptoms are improving and he is relatively asymptomatic. He has benign physical exam. Initially mildly hypertensive however repeat without any further intervention normalizes. Work including CBC, CMP, lipase and urinalysis normal. CT of abdomen pelvis is consistent with constipation shows diverticulosis but no other acute processes noted. Patient reevaluated. Continues to be asymptomatic and is feeling back to normal. Counseled that his workup is most consistent with constipation. He is comfortable with discharge home. History & Record Review Additional record(s) reviewed:: Prior outpatient record Lab Data Attestation: I reviewed the patient's lab results. Labs: Laboratory Results - last 24 hr 06/19/25 10:21 WBC 6.0 RBC 4.81 Hgb 15.6 Hct 45.6 MCV 94.8 H MCH 32.4 H MCHC 34.2 RDW Std Deviation 43.7 RDW Coeff of Anival 12.5 Plt Count 303 MPV 9.3 Immature Gran % (Auto) 0.300 Neut % (Auto) 70.7 H Lymph % (Auto) 18.1 L [place] % (Auto) 6.3 Eos % (Auto) 3.8 Baso % (Auto) 0.8 Absolute Neuts (auto) 4.3 Absolute Lymphs (auto) 1.09 Nucleated RBC % 0 Sodium 142 Potassium 4.2 Chloride 105 Carbon Dioxide 26.0 Anion Gap 10 BUN 11 Creatinine 0.88 Estim Creat Clear Calc 106.25 Est GFR (MDRD) Non-Af 95 BUN/Creatinine Ratio 12.6 Glucose 99 Calcium 10.1 Total Bilirubin 0.64 AST 24 ALT 19 Alkaline Phosphatase 89 Total Protein 8.0 Albumin 4.7 Globulin 3.3 Albumin/Globulin Ratio 1.4 Lipase 33 Urine Color Yellow Urine Clarity Clear Urine pH 7.0 Ur Specific [place] 1.010 Urine Protein 15 H Urine Glucose (UA) Normal Urine Ketones Negative Urine Occult Blood 10 H Urine Nitrite Negative Urine Bilirubin Negative Urine Urobilinogen Normal Ur Leukocyte Esterase Negative Urine RBC 0 SEEN Urine WBC 0 SEEN Ur Squamous Epith Cells 0 SEEN Urine Bacteria 0 SEEN Urine Mucus 0 SEEN Radiography Diagnostic Testing: Clinical Impression(s) from Imaging Studies Abdomen/Pelvis CT 06/19/25 10:16 IMPRESSION: Constipation. Negative for acute intra-abdominal or pelvic pathology. Reading Location: [facility] Discharge Plan Triage Chief Complaint: Abd Pain ED Provider: Isa Watkins Dx/Rx/DC Orders Clinical Impression: Abdominal pain, lower, Constipation, Diverticulosis Instructions: ED Constipation (Adult), ED Abdominal Pain Unkn Cause Male..., ED Diverticulosis Prescriptions: No Action meloxicam 15 mg tablet 15 mg PO DAILY PRN (Reason: arthritis ) Qty: 90 1RF aspirin [Adult Low Dose Aspirin] 81 mg tablet,delayed release (DR/EC) 81 mg PO QDAY pantoprazole 40 mg tablet,delayed release (DR/EC) 40 mg PO QDAY Qty: 30 2RF Rx Instructions: One daily at bedtime zquil PO HS PRN Patient Comments: pt reports he takes this sometimes at bedtime to sleep Primary Care Provider: Joe Squires Referrals: Joe Squires, DO [Primary Care Provider] - Activity Restrictions/Additional Instructions: Start taking daily MiraLAX or Metamucil for constipation. If you have continued discomfort today that is mild I would stick to a liquid diet for the next 24 hours. After that or if you continue to feel well I would recommend high-fiber diet. Please follow-up with with your primary care doctor. If you have further concerns or if you develop more severe symptoms such as blood in the stool, vomiting or fevers please return to the emergency room. Print Language: Maltese Disposition Disposition: Home, Self Care
[2025-06-19 10:28] LABS: Mucous, Urine 0 SEEN /hpf (<or=2+); Red Blood Cells-Urine 0 SEEN /hpf (0-5); Squamous Epithelial Cells - UA 0 SEEN /hpf (0-5)
--- OUTSIDE RECORDS SUMMARY | 2025-06-19 10:30 | XMS RPT_ITS | CCD ---
Author Organization [facility] Care Team Providers Care Hydro Pneumatic Tester Name Role Phone PROVIDER, UNKNOWN Admitting Unavailable PROVIDER, UNKNOWN Attending Unavailable BONG WALTER. Referring Unavailable BONG WALTER MD Primary Care Physician [phone] Cristela Ramírez PT Unavailable Unavailable Dr. Bong Walter Primary Care Provider Dr. Bogn Walter Referring Provider [phone] MILKA Cervantes Attending Provider Varela REPAIRER PUMP, REPAIRER PUMP-C Daryl Primary Care Provider Varela REPAIRER PUMP, REPAIRER PUMP-C Daryl Attending Provider Varela REPAIRER PUMP, REPAIRER PUMP-C Daryl Primary Care Provider Varela REPAIRER PUMP, REPAIRER PUMP-C Daryl Referring Provider MILKA Moses Attending Provider Varela REPAIRER PUMP, REPAIRER PUMP-C Daryl Primary Care Provider Varela REPAIRER PUMP, REPAIRER PUMP-C Daryl Referring Provider MILKA Moses Attending Provider Dr. Joe Squires Primary Care Provider Dr. Joe Squires Attending Provider Dr. Joe Squires DO Primary Care Provider Dr. Joe Squires DO Attending Provider [phone] Dr. Joe Squires DO Referring Provider Dr. Aditya Cummings DO Attending Provider Dr. Aditya Cummings DO Other Provider Oleksandr Moses Attending Provider [phone] Nicole ESCAMILLA, Dr. Lopez Attending Provider Nicole ESCAMILLA, Dr. Lopez Referring Provider Brown, Joe R Primary Care Unavailable Jessica Rivera Attending Unavailable Jessica Rivera Referring Unavailable Brown, Joe R Referring Unavailable Brown, Joe R [facility] Un[facility] Primary Care Unavailable Brown, Joe R Attending Unavailable Brown, Joe R Referring Unavailable Brown, Joe R Referring Unavailable Oleksandr Moses Attending Unavailable Brown, Joe R Primary Care Unavailable Brown, Joe R Referring Unavailable Brown, Joe R Primary Care Unavailable Jessica Rivera Attending Unavailable Brown, Joe R Attending Unavailable Brown, Joe R Primary Care Unavailable Brown, Joe R Primary Care Unavailable Friend, Aditya Attending Unavailable Brown, Joe R Referring Unavailable Brown, Joe R Primary Care Unavailable Anayeli Xavier Attending Unavailable Brown, Joe R Primary Care Unavailable Friend, Aditya Consulting Unavailable Friend, Aditya Attending Unavailable Brown, Joe R Referring Unavailable Brown, Joe R Referring Unavailable Brown, Joe R Primary Care Unavailable Brown, Joe R Attending Unavailable Brown, Joe R Referring Unavailable Brown, Joe R Primary Care Unavailable Brown, Joe R Attending Unavailable Brown, Joe R Referring Unavailable Brown, Joe R Attending Unavailable Brown, Joe R Primary Care Unavailable Medications Current Medications Medication Drug Class(es) Dates Sig (Normalized) Sig (Original) aspirin 81 mg delayed release oral tablet (1 source) Platelet Aggregation Inhibitor, Nonsteroidal Anti-inflammatory Drug Start: 09-22-2024 Aspirin (Adult Low Dose Aspirin) 81 mg tablet,delayed release (/EC) Active 81 mg PO daily September 22, 2024 1:00am melatonin 1 mg oral tablet (3 sources) Start: 07-25-2021 melatonin 1 mg oral tablet Dose : 1 mg = 1 tab(s), Oral, qHS, PRN as needed for insomnia, # 90 tab(s), 0 Refill(s) Start Date: 07/25/21 Status: Ordered pantoprazole 40 mg delayed release oral tablet (1 source) Proton Pump Inhibitor Start: 11-30-2024 take 1 tablet by mouth once daily at bedtime Pantoprazole 40 mg tablet,delayed release (DR/EC) Active 40 mg PO daily November 30, 2024 1:00am One daily at bedtime traZODone hydrochloride 50 mg oral tablet (3 sources) Serotonin Reuptake Inhibitor Start: 07-25-2021 traZODone 50 mg oral tablet Dose : 50 mg = 1 tab(s), Oral, qHS, # 30 tab(s), 3 Refill(s), Pharmacy: [facility] [facility], 184.3, cm, 07/25/21 7:50:00 EDT, Height, kg, 07/25/21 7:50:00 EDT, Dosing Weight Start Date: 07/25/21 Status: Ordered zquil (1 source) Start: 01-25-2025 zquil Active PO BEDTIME as needed January 25, 2025 12:00am Completed/Discontinued Medications Medication Drug Class(es) Dates Sig (Normalized) Sig (Original) acetaminophen 500 mg oral tablet (3 sources) Start: 10-16-2022 End: 09-15-2024 take 2 tablets by mouth at bedtime as needed for arthritis Acetaminophen (Tylenol Extra Strength) 500 mg tablet Discontinued 1000 mg PO AT BEDTIME as needed for Arthritis October 16, 2022 1:00am September 15, 2024 10:16am azithromycin 250 mg oral tablet (1 source) Macrolide Antimicrobial Start: 12-28-2024 End: 01-25-2025 Azithromycin 250 mg tablet Discontinued 250 mg PO .COMPLEX December 28, 2024 12:00am January 25, 2025 8:20am 2 tablets (500 mg) on day 1, then 1 tablet daily on days 2 through 11 benzonatate 200 mg oral capsule (1 source) Non-narcotic Antitussive Start: 12-28-2024 End: 01-25-2025 take 1 capsule by mouth three times daily as needed for cough Benzonatate 200 mg capsule Discontinued 200 mg PO THREE TIMES A DAY as needed for cough December 28, 2024 12:00am January 25, 2025 8:20am ciclopirox 80 mg/ml topical solution (1 source) Start: 03-31-2024 End: 09-15-2024 Ciclopirox 8 % solution Discontinued 1 NMA TOPICAL AT BEDTIME 6.6 28 March 31, 2024 12:00am September 15, 2024 10:16am diphenhydrAMINE hydrochloride 25 mg oral capsule (7 sources) Histamine-1 Receptor Antagonist Start: 11-29-2024 End: 01-25-2025 take 1 capsule by mouth every eight hours as needed for sleep Diphenhydramine Hcl (Benadryl) 25 mg capsule Discontinued 25 mg PO Q8H as needed for sleep November 29, 2024 1:00am January 25, 2025 8:20am Start: 10-16-2022 End: 09-15-2024 take 1 tablet by mouth at bedtime as needed for sleep Diphenhydramine Hcl (Benadryl Allergy) 25 mg tablet Discontinued 25 mg PO AT BEDTIME as needed for sleep October 16, 2022 1:00am September 15, 2024 10:16am Start: 07-25-2021 Benadryl 25 mg oral capsule Dose : 25 mg = 1 cap(s), Oral, qHS, PRN for insomnia, 0 Refill(s) Start Date: 07/25/21 Status: Ordered diphenhydrAMINE citrate 38 mg / ibuprofen 200 mg oral tablet (4 sources) Histamine-1 Receptor Antagonist, Nonsteroidal Anti-inflammatory Drug Start: 05-31-2022 End: 09-15-2024 Ibuprofen-Diphenhydramine Cit (Advil Pm) 200-38 mg tablet Discontinued 2 NMA PO .at bedtime May 31, 2022 12:00am September 15, 2024 10:16am meloxicam 15 mg oral tablet (9 sources) Nonsteroidal Anti-inflammatory Drug Start: 09-15-2024 End: 09-22-2024 take 1 tablet by mouth once daily as needed for arthritis Meloxicam 15 mg tablet Discontinued 15 mg PO DAILY as needed for arthritis September 15, 2024 10:45am September 22, 2024 12:07pm Start: 10-16-2022 End: 03-31-2024 take 1 tablet by mouth once daily as needed for arthritis Meloxicam 15 mg tablet Discontinued 15 mg PO DAILY as needed for arthritis December 19, 2022 1:18pm March 31, 2024 9:04am methylPREDNISolone 4 mg oral tablet (4 sources) Corticosteroid Start: 05-07-2022 End: 05-13-2022 take 1 tablet by mouth once Methylprednisolone (Medrol (Taco)) 4 mg tablets,dose pack Discontinued 4 mg PO per package directions 02 04May 07, 2022 12:00am May 12, 2022 12:00am May 13, 2022 12:03am predniSONE 10 mg oral tablet (4 sources) Start: 05-30-2024 End: 06-14-2024 Prednisone 10 mg tablet Discontinued 10 mg PO .COMPLEX 35 May 30, 2024 12:00am June 13, 2024 12:00am June 14, 2024 12:04am 10 mg orally; 40mg x5 days, 20mg x5 days, 10mg x5 days Start: 05-26-2023 End: 12-17-2023 take 4 tablets by mouth once daily, then take 3 tablets by mouth once daily, then take 2 tablets by mouth once daily, then take 1 tablet by mouth once daily Prednisone 10 mg tablet Discontinued 10 mg PO As Directed May 26, 2023 12:00am December 17, 2023 9:48am 4 tablets daily x3, then 3 tablets daily x3, then 2 tablets daily x3, then 1 tablet daily x3 terbinafine 250 mg oral tablet (2 sources) Allylamine Antifungal Start: 12-17-2023 End: 03-31-2024 take 1 tablet by mouth once daily Terbinafine Hcl 250 mg tablet Discontinued 250 mg PO DAILY December 17, 2023 1:00am March 31, 2024 9:02am Problems Active Problems Problem Classification Problem Date Documented Date Episodic/Chronic Administrative/social admission (6 sources) Administrative reason for encounter; Translations: [Encounter for other administrative examinations] 11-20-2021 Episodic Allergic reactions (3 sources) Contact dermatitis due to poison rhonda; Translations: [Allergic contact dermatitis due to plants, except food] 05-26-2023 Episodic Deficiency and other anemia (3 sources) Anemia 07-23-2019 Episodic E Codes: Natural/environment (1 source) Bitten or stung by nonvenomous insect and other nonvenomous arthropods, initial encounter; Translations: [Insect bite] 01-24-2025 Episodic Essential hypertension (3 sources) Hypertensive disorder 07-25-2021 Chronic Immunizations and screening for infectious disease (1 source) Encounter for immunization; Translations: [Encounter for immunization] Onset: 11-16-2024 Episodic Malaise and fatigue (4 sources) Fatigue; Translations: [Other fatigue] 01-22-2023 Episodic Nonspecific chest pain (3 sources) Chest pain 01-17-2020 Episodic Osteoarthritis (3 sources) Degenerative joint disease involving multiple joints 07-23-2019 Chronic Other circulatory disease (4 sources) H/O: hypertension; Translations: [Personal history of other diseases of the circulatory system] 05-31-2022 Episodic Other connective tissue disease (4 sources) History of total knee arthroplasty; Translations: [Presence of right artificial knee joint] 05-31-2022 Chronic Other connective tissue disease (1 source) Presence of right artificial knee joint; Translations: [Knee joint replacement] 12-17-2023 Chronic Other connective tissue disease (4 sources) H/O: osteoarthritis; Translations: [Personal history of other diseases of the musculoskeletal system and connective tissue] 05-31-2022 Episodic Other disorders of stomach and duodenum (2 sources) Indigestion; Translations: [Functional dyspepsia] 11-30-2024 Episodic Other disorders of stomach and duodenum (1 source) Functional dyspepsia; Translations: [Functional dyspepsia] Onset: 12-01-2024 Episodic Other ear and sense organ disorders (2 sources) Does use hearing aid; Translations: [Presence of external hearing-aid] 12-17-2023 Episodic Other inflammatory condition of skin (3 sources) Psoriasis 07-23-2019 Chronic Other lower respiratory disease (3 sources) Cough; Translations: [Acute cough] 08-19-2021 Episodic Other lower respiratory disease (1 source) Cough; Translations: [Acute cough] 08-19-2021 Episodic Other lower respiratory disease (1 source) Dyspnea; Translations: [Shortness of breath] 01-25-2025 Episodic Other lower respiratory disease (1 source) Shortness of breath; Translations: [Shortness of breath] Onset: 01-25-2025 Episodic Other screening for suspected conditions (not mental disorders or infectious disease) (6 sources) Patient encounter status; Translations: [Encounter for screening for malignant neoplasm of colon] Onset: 01-12-2025 01-24-2025 Episodic Other upper respiratory infections (6 sources) Streptococcal sore throat; Translations: [Posterior rhinorrhea] 09-19-2021 Episodic Residual codes; unclassified (3 sources) Insomnia 07-23-2019 Episodic Residual codes; unclassified (1 source) History of colonoscopy; Translations: [Other specified postprocedural states] 09-22-2024 Episodic Viral infection (5 sources) Disease caused by 2019-nCoV; Translations: [COVID-19] Episodic Past or Other Problems Problem Classification Problem Date Documented Date Episodic/Chronic Mycoses (2 sources) Onychomycosis; Translations: [Tinea unguium] Onset: 03-31-2024 03-31-2024 Episodic Other circulatory disease (2 sources) Personal history of other diseases of the circulatory system; Translations: [Personal history of other diseases of circulatory system] Onset: 03-31-2024 12-17-2023 Episodic Other connective tissue disease (1 source) Personal history of other diseases of the musculoskeletal system and connective tissue; Translations: [Personal history of other diseases of the musculoskeletal system and connective tissue] Onset: 09-15-2024 Episodic Other ear and sense organ disorders (2 sources) Presence of external hearing-aid; Translations: [Other postprocedural status] Onset: 09-15-2024 12-17-2023 Episodic Results Test Name Value Interpretation Reference Range Facility L501.4021on 01-26-2025 Trop T High Sen 16 ng/L Normal <=22 [facility] Comment on above: Performed By: #### L 500.4100, L501.4021, L300.8000, L500.4050, L100.0100 #### [facility] [address] [place], [address] Absolute neutrophil countOrd ered By: Jessica Rivera on 01-25-2025 Neutrophils (Bld) [#/Vol] 2.5 10*3/uL 2.0-7.7 [facility] Anion gap in Serum or Plasma Ordered By: Jessica Rivera on 01-25-2025 Anion gap [Moles/Vol] 10 mmol/L - [facility] BUN/creatinine ratioOrdered By: Jessica Rivera on 01-25-2025 Urea nitrogen/Creatinine [Mass ratio] 11.0 mg/mg 10- [facility] Basophil percentageOrdered B y: Jessica iRvera on 01-25-2025 Basophils/100 WBC (Bld) 1.2 % High 0-1 [facility] Bilirubin, totalOrdered By: Jessica Rivera on 01-25-2025 Bilirubin [Mass/Vol] 0.62 mg/dL 0.00-1.30 [facility] CBC W/Diff, Automatedon 01-11 Absolute Lymph 1.10 X10 3/uL Normal 0.83-4.51 [facility] Comment on above: Performed By: #### L 500.4100, L501.4021, L300.8000, L500.4050, L100.0100 #### [facility] [address] [place], [address] Absolute Neut 2.5 X10 3/uL Normal 2.0-7.7 [facility] Comment on above: Performed By: #### L 500.4100, L501.4021, L300.8000, L500.4050, L100.0100 #### [facility] [address] [place], [address] Basophils/100 WBC (Bld) 1.2 % High 0-1 [facility] Comment on above: Performed By: #### L 500.4100, L501.4021, L300.8000, L500.4050, L100.0100 #### [facility] [address] [place], [address] Eosinophils/100 WBC (Bld) 6.5 % High 0-5 [facility] Comment on above: Performed By: #### L 500.4100, L501.4021, L300.8000, L500.4050, L100.0100 #### [facility] [address] [place], [address] Erythrocyte distribution width (RBC) [Ratio] 12.6 % Normal 11.6-14.6 [facility] Comment on above: Performed By: #### L 500.4100, L501.4021, L300.8000, L500.4050, L100.0100 #### [facility] [address] [place], [address] Hematocrit (Bld) [Volume fraction] 40.7 % Normal 40-54 [facility] Comment on above: Performed By: #### L 500.4100, L501.4021, L300.8000, L500.4050, L100.0100 #### [facility] [address] [place], [address] Hemoglobin (Bld) [Mass/Vol] 14.0 g/dL Normal 13.0-16.5 [facility] Comment on above: Performed By: #### L 500.4100, L501.4021, L300.8000, L500.4050, L100.0100 #### [facility] [address] [place], [address] IG% 0.000 Normal 0.0-0.9 [facility] Comment on above: Result Comment: IG% - Immature Granulocytes (promyelocytes, myelocytes and metamyelocytes) > 1% indicates that a LEFT SHIFT is Present. Performed By: #### L 500.4100, L501.4021, L300.8000, L500.4050, L100.0100 #### [facility] [address] [place], [address] Lymphocytes/100 WBC (Bld) 25.7 % Normal 19-41 [facility] Comment on above: Performed By: #### L 500.4100, L501.4021, L300.8000, L500.4050, L100.0100 #### [facility] [address] [place], [address] MCH (RBC) [Entitic mass] 32.6 pg High 27.0-32.0 [facility] Comment on above: Performed By: #### L 500.4100, L501.4021, L300.8000, L500.4050, L100.0100 #### [facility] [address] [place], [address] MCHC (RBC) [Mass/Vol] 34.4 g/dL Normal 32-36 [facility] Comment on above: Performed By: #### L 500.4100, L501.4021, L300.8000, L500.4050, L100.0100 #### [facility] [address] [place], [address] MCV (RBC) [Entitic vol] 94.9 fL High 80-94 [facility] Comment on above: Performed By: #### L 500.4100, L501.4021, L300.8000, L500.4050, L100.0100 #### [facility] [address] [place], [address] Monocytes/100 WBC (Bld) 8.9 % Normal 0-10 [facility] Comment on above: Performed By: #### L 500.4100, L501.4021, L300.8000, L500.4050, L100.0100 #### [facility] [address] [place], [address] Neutrophils/100 WBC (Bld) 57.7 % Normal 47-70 [facility] Comment on above: Performed By: #### L 500.4100, L501.4021, L300.8000, L500.4050, L100.0100 #### [facility] [address] [place], [address] Nucleated RBC (Bld) [#/Vol] 0 10*3/uL Normal 0-5 [facility] Comment on above: Performed By: #### L 500.4100, L501.4021, L300.8000, L500.4050, L100.0100 #### [facility] [address] [place], [address] Platelet mean volume (Bld) [Entitic vol] 9.5 fL Normal 6.2-12.0 [facility] Comment on above: Performed By: #### L 500.4100, L501.4021, L300.8000, L500.4050, L100.0100 #### [facility] [address] [place], [address] Platelets (Bld) [#/Vol] 277 10*3/uL Normal 150-450 [facility] Comment on above: Performed By: #### L 500.4100, L501.4021, L300.8000, L500.4050, L100.0100 #### [facility] [address] [place], [address] RBC (Bld) [#/Vol] 4.29 10*6/uL Low 4.6-6.2 [facility] Comment on above: Performed By: #### L 500.4100, L501.4021, L300.8000, L500.4050, L100.0100 #### [facility] [address] [place], [address] RDW SD 43.8 fl Normal 35.1-43.9 [facility] Comment on above: Performed By: #### L 500.4100, L501.4021, L300.8000, L500.4050, L100.0100 #### [facility] [address] [place], [address] WBC (Bld) [#/Vol] 4.3 10*3/uL Low 4.4-11.0 [facility] Comment on above: Performed By: #### L 500.4100, L501.4021, L300.8000, L500.4050, L100.0100 #### [facility] [address] [place], [address] Calculated very low density lipoprotein (VLDL) cholesterol measurementOrdered By: Jessica Rivera on 01-25-2025 VLDL Cholesterol 8 mg/dL 5-40 [facility] Carbon dioxide, total [Moles /volume] in Central venous bloodOrdered By: Jessica Rivera on 01-25-2025 CO2 [Moles/Vol] 24.1 mmol/L 21.0-32.0 [facility] Chest PA and Lateralon 01-25 Chest PA and Lateral [facility] [address] [place], [place] [address] Chest PA and Lateral MR#: [id number] Acct: [id number] Name: REX SARAH Rep #: [id number] : 1960 M 64 From: Luis Marquez MD PCP: Dr. Joe Squires DO Status: REG CLI Study: Chest PA and Lateral Date of Exam: 01/25/25 Exam# [id number] Ordering Dr: Jessica Rivera MD PROCEDURE: CHEST PA AND LATERAL 01/25/2025 REASON FOR EXAM: SOB TECHNIQUE: Frontal and lateral views of the chest. COMPARISON: None available FINDINGS: The lungs appear clear. Pulmonary vascularity appears within limits. No pleural effusion. The cardiac and mediastinal contours appear within limits. Mid to lower thoracic spine spondylosis/discogen ic change. RAD/Chest PA and Lateral IMPRESSION: No evidence of acute disease. Reading Location: [facility] CC: Dr. Jessica Rivera MD; Dr. Joe Squires DO Garage Helper: Signed Normal [facility] Chloride assayOrdered By: Lucien Rivera on 01-25-2025 Chloride [Moles/Vol] 106 mmol/L 98-108 [facility] Comprehensive Metabolic Prof ilon 01-25-2025 Albumin [Mass/Vol] 4.4 g/dL Normal 3.4-4.8 [facility] Comment on above: Performed By: #### L 500.4100, L501.4021, L300.8000, L500.4050, L100.0100 #### [facility] [address] [place], [address] Albumin/Globulin [Mass ratio] 1.6 {ratio} Normal 0.9-2.4 [facility] Comment on above: Performed By: #### L 500.4100, L501.4021, L300.8000, L500.4050, L100.0100 #### [facility] [address] [place], [address] ALK PHOS 76 U/L Normal 40-129 [facility] Comment on above: Performed By: #### L 500.4100, L501.4021, L300.8000, L500.4050, L100.0100 #### [facility] [address] [place], [address] ALT [Catalytic activity/Vol] 15 U/L Normal <=46 [facility] Comment on above: Performed By: #### L 500.4100, L501.4021, L300.8000, L500.4050, L100.0100 #### [facility] [address] [place], [address] AST [Catalytic activity/Vol] 27 U/L Normal <=37 [facility] Comment on above: Performed By: #### L 500.4100, L501.4021, L300.8000, L500.4050, L100.0100 #### [facility] [address] [place], [address] Bilirubin [Mass/Vol] 0.62 mg/dL Normal 0.00-1.30 [facility] Comment on above: Performed By: #### L 500.4100, L501.4021, L300.8000, L500.4050, L100.0100 #### [facility] [address] [place], [address] BUN/CRE 11.0 RATIO Normal 10-20 [facility] Comment on above: Performed By: #### L 500.4100, L501.4021, L300.8000, L500.4050, L100.0100 #### [facility] [address] [place], [address] Calcium [Mass/Vol] 9.6 mg/dL Normal 7.6-11.0 [facility] Comment on above: Performed By: #### L 500.4100, L501.4021, L300.8000, L500.4050, L100.0100 #### [facility] [address] [place], [address] Chloride [Moles/Vol] 106 mmol/L Normal 98-108 [facility] Comment on above: Performed By: #### L 500.4100, L501.4021, L300.8000, L500.4050, L100.0100 #### [facility] [address] [place], [address] CO2 [Moles/Vol] 24.1 mmol/L Normal 21.0-32.0 [facility] Comment on above: Performed By: #### L 500.4100, L501.4021, L300.8000, L500.4050, L100.0100 #### [facility] [address] [place], [address] Creatinine [Mass/Vol] 0.94 mg/dL Normal 0.70-1.20 [facility] Comment on above: Performed By: #### L 500.4100, L501.4021, L300.8000, L500.4050, L100.0100 #### [facility] [address] [place], [address] GAP 10 Normal 5-15 [facility] Comment on above: Performed By: #### L 500.4100, L501.4021, L300.8000, L500.4050, L100.0100 #### [facility] [address] [place], [address] GFR/1.73 sq M.predicted among non-blacks MDRD (S/P/Bld) [Vol rate/Area] 90 mL/min/{1.73_m2} Normal >60 [facility] Comment on above: Result Comment: mL/m in/1.73m2 CKD-EPI Creatinine Equation (2020) Performed By: #### L 500.4100, L501.4021, L300.8000, L500.4050, L100.0100 #### [facility] [address] [place], [address] Globulin (S) [Mass/Vol] 2.8 g/dL Normal 2.2-4.2 [facility] Comment on above: Performed By: #### L 500.4100, L501.4021, L300.8000, L500.4050, L100.0100 #### [facility] [address] [place], [address] Glucose [Mass/Vol] 93 mg/dL Normal 70-99 [facility] Comment on above: Performed By: #### L 500.4100, L501.4021, L300.8000, L500.4050, L100.0100 #### [facility] [address] [place], [address] Potassium [Moles/Vol] 4.6 mmol/L Normal 3.3-5.1 [facility] Comment on above: Performed By: #### L 500.4100, L501.4021, L300.8000, L500.4050, L100.0100 #### [facility] [address] [place], [address] Sodium [Moles/Vol] 140 mmol/L Normal 133-145 [facility] Comment on above: Performed By: #### L 500.4100, L501.4021, L300.8000, L500.4050, L100.0100 #### [facility] [address] [place], [address] T PROT 7.1 g/dL Normal 5.9-8.4 [facility] Comment on above: Performed By: #### L 500.4100, L501.4021, L300.8000, L500.4050, L100.0100 #### [facility] [address] [place], [address] Urea nitrogen [Mass/Vol] 10 mg/dL Normal 4-19 [facility] Comment on above: Performed By: #### L 500.4100, L501.4021, L300.8000, L500.4050, L100.0100 #### [facility] [address] [place], [address] D-Dimer Quantitative (DVT/PE )on 01-25-2025 D-DIMER QUANT 0.27 FEU/ug/m Normal 0.27-0.49 [facility] Comment on above: Result Comment: NORM AL D-Dimer level (<0.50) indicates no DVT or PE. Performed By: #### L 500.4100, L501.4021, L300.8000, L500.4050, L100.0100 #### [facility] [address] [place], [address] D-dimer measurement for deep venous thrombosisOrdered By: Jessica Rivera on 01-25-2025 D-Dimer Quantitative (PE/DVT) 0.27 FEU/ug/m 0.27-0.49 [facility] Comment on above: NORMAL D-Dimer level (<0.50) indicates no DVT or PE. Eosinophil percentageOrdered By: Jessica Rivera on 01-25-2025 Eosinophils/100 WBC (Bld) 6.5 % High 0-5 [facility] Erythrocyte distribution wid th (RBC) [Ratio]Ordered By: Jessica Rivera on 01-25-2025 Erythrocyte distribution width (RBC) [Entitic vol] 43.8 fL 35.1-43.9 [facility] Erythrocyte distribution wid th ratioOrdered By: Jessica Rivera on 01-25-2025 Erythrocyte distribution width (RBC) [Ratio] 12.6 % 11.6-14.6 [facility] GFR/1.73 sq M.predicted becki g non-blacks MDRD (S/P/Bld) [Vol rate/Area]Ordered By: Jessica Rivera on 01-25-2025 Estimated GFR (MDRD) Non-Af Amer 90 >60 [facility] Comment on above: mL/min/1.73m2 CKD-EP I Creatinine Equation (2020) Hematocrit Auto (Bld) [Volum e fraction]Ordered By: Jessica Rivera on 01-25-2025 Hematocrit (Bld) [Volume fraction] 40.7 % 40-54 [facility] Hemoglobin measurementOrdere d By: Jessica Rivera on 01-25-2025 Hemoglobin (Bld) [Mass/Vol] 14.0 g/dL 13.0-16.5 [facility] Immature granulocytes/100 WB C Auto (Bld)Ordered By: Jessica Rivera on 01-25-2025 Immature granulocytes/100 WBC (Bld) 0.000 % 0.0-0.9 [facility] Comment on above: IG% - Immature Granu locytes (promyelocytes, myelocytes and metamyelocytes) > 1% indicates that a LEFT SHIFT is Present. LDL calc ser/plasOrdered By: Jessica Rivera on 01-25-2025 LDL Cholesterol, Calculated 88 mg/dL [facility] Comment on above: Wmzqxxdpgp=730-628 m g/dL & Higher Zspq=103 mg/dL or greater Laboratory - Chemistry and C hemistry - challengeOrdered By: Jessica Rivera on 01-25-2025 AST [Catalytic activity/Vol] 27 U/L <38 [facility] Lipid Profileon 01-25-2025 CHOL:HDL 2.57 Normal [facility] Comment on above: Performed By: #### L 500.4100, L501.4021, L300.8000, L500.4050, L100.0100 #### [facility] [place], [address] Cholesterol [Mass/Vol] 157 mg/dL Normal <=200 [facility] Comment on above: Result Comment: Chol esterol level, Desirable <200 mg/dL Borderline high cholesterol 200-239 mg/dL High cholesterol >=240 mg/dL Recommendations of the NCEP Adult Treatment Panel for the following risk-cutoff thresholds for the [place] population. Performed By: #### L 500.4100, L501.4021, L300.8000, L500.4050, L100.0100 #### [facility] [address] [place], [address] Cholesterol in HDL [Mass/Vol] 61 mg/dL Normal [facility] Comment on above: Result Comment: Yolanda onal Cholesterol Education Program (NCEP) guidelines: <40 mg/dL: Low HDL-cholesterol (major risk factor for CHD) >= 60 mg/dL: High HDL-cholesterol (negative risk factor for CHD) HDL-cholesterol is affected by a number of factors, e.g. smoking, exercise, hormones, sex and age. Performed By: #### L 500.4100, L501.4021, L300.8000, L500.4050, L100.0100 #### [facility] [address] [place], [address] Cholesterol in LDL [Mass/Vol] 88 mg/dL Normal [facility] Comment on above: Result Comment: Bord fzmouc=177-681 mg/dL Higher Zjyx=663 mg/dL or greater Performed By: #### L 500.4100, L501.4021, L300.8000, L500.4050, L100.0100 #### [facility] [address] [place], [address] Cholesterol in VLDL [Mass/Vol] 8 mg/dL Normal 5-40 [facility] Comment on above: Performed By: #### L 500.4100, L501.4021, L300.8000, L500.4050, L100.0100 #### [facility] [address] [place], [address] Triglyceride [Mass/Vol] 38 mg/dL Normal [facility] Comment on above: Result Comment: The drugs N-Acetylcysteine and Metamizole may falsely depress this assay. Normal range: <150 mg/dL Borderline High: 150-199 mg/dL High: 200-499 mg/dL Very High: >500 mg/dL Performed By: #### L 500.4100, L501.4021, L300.8000, L500.4050, L100.0100 #### [facility] [address] [place], [place], [id number] Lymphocytes Auto (Unsp spec) [#/Vol]Ordered By: Jessica Rivera on 01-25-2025 Lymphocytes (Bld) [#/Vol] 1.10 10*3/uL 0.83-4.51 [facility] Lymphocytes/100 WBC Auto (Un sp spec)Ordered By: Jessica Rivera on 01-25-2025 Lymphocytes/100 WBC (Bld) 25.7 % 19-41 [facility] MCV (mean corpuscular volume ) determinationOrdered By: Jessica Rivera on 01-25-2025 MCV (RBC) [Entitic vol] 94.9 fL High 80-94 [facility] Mean corpuscular hemoglobin (MCH) determinationOrdered By: Jessica Rivera on 01-25-2025 MCH (RBC) [Entitic mass] 32.6 pg High 27.0-32.0 [facility] Mean corpuscular hemoglobin concentration (MCHC) determinationOrdered By: Jessica Rivera on 01-25-2025 MCHC (RBC) [Mass/Vol] 34.4 g/dL 32-36 [facility] Mean platelet volume determi nationOrdered By: Jessica Rivera on 01-25-2025 Platelet mean volume (Bld) [Entitic vol] 9.5 fL 6.2-12.0 [facility] Monocyte percentageOrdered B y: Jessica Rivera on 01-25-2025 Monocytes/100 WBC (Bld) 8.9 % 0-10 [facility] Neutrophil percentageOrdered By: Jessica Rivera on 01-25-2025 Neutrophils/100 WBC (Bld) 57.7 % 47-70 [facility] Nucleated red blood cell per centageOrdered By: Jessica Rivera on 01-25-2025 Nucleated RBC/100 WBC (Bld) [Ratio] 0 % 0-5 [facility] Platelet countOrdered By: Lucien Rivera on 01-25-2025 Platelets (Bld) [#/Vol] 277 10*3/uL 150-450 [facility] Potassium (Unsp spec) [Mass/ Vol]Ordered By: Jessica Rivera on 01-25-2025 Potassium [Moles/Vol] 4.6 mmol/L 3.3-5.1 [facility] RBC Auto (Bld) [#/Vol]Ordere d By: Jessica Rivera on 01-25-2025 RBC (Bld) [#/Vol] 4.29 10*6/uL Low 4.6-6.2 [facility] Screening total cholesterol/ high density lipoprotein (HDL) cholesterol ratioOrdered By: Jessica Rivera on 01-25-2025 Cholesterol.total/Trang sterol in HDL [Mass ratio] 2.57 {ratio} [facility] Serum creatinine measurement (mass/volume)Ordered By: Jessica Rivera on 01-25-2025 Creatinine [Mass/Vol] 0.94 mg/dL 0.70-1.20 [facility] Serum globulin measurementOr dered By: Jessica Rivera on 01-25-2025 Globulin (S) [Mass/Vol] 2.8 g/dL 2.2-4.2 [facility] Serum glucose measurement (m ass/volume)Ordered By: Jessica Rivera on 01-25-2025 Glucose [Mass/Vol] 93 mg/dL 70-99 [facility] Serum or plasma alanine hoover otransferase (ALT) measurementOrdered By: Jessica Rivera on 01-25-2025 ALT [Catalytic activity/Vol] 15 U/L <47 [facility] Serum or plasma albumin shira urement (mass/volume)Ordered By: Jessica Rivera on 01-25-2025 Albumin [Mass/Vol] 4.4 g/dL 3.4-4.8 [facility] Serum or plasma albumin/glob ulin mass ratioOrdered By: Jessica Rivera on 01-25-2025 Albumin/Globulin [Mass ratio] 1.6 {ratio} 0.9-2.4 [facility] Serum or plasma alkaline pieter sphatase measurementOrdered By: Jessica Rivera on 01-25-2025 ALP [Catalytic activity/Vol] 76 U/L 40-129 [facility] Serum or plasma calcium shira urement (mass/volume)Ordered By: Jessica Rivera on 01-25-2025 Calcium [Mass/Vol] 9.6 mg/dL 7.6-11.0 [facility] Serum or plasma cholesterol in HDL measurement (mass/volume)Ordered By: Jessica Rivera on 01-25-2025 Cholesterol in HDL [Mass/Vol] 61 mg/dL >40 [facility] Comment on above: National Cholesterol Education Program (NCEP) guidelines:<40 mg/dL: Low HDL-cholesterol (major risk factor for CHD)>= 60 mg/dL: High HDL-cholesterol (negative risk factor for CHD)HDL-cholesterol is affected by a number of factors, e.g. smoking, exercise, hormones, sex and age. Serum or plasma cholesterol measurement (mass/volume)Ordered By: Jessica Rivera on 01-25-2025 Cholesterol [Mass/Vol] 157 mg/dL <201 [facility] Comment on above: Cholesterol level, D esirable <200 mg/dLBorderline high cholesterol 200-239 mg/dLHigh cholesterol >=240 mg/dLRecommendations of the NCEP Adult Treatment Panel for the following risk-cutoff thresholds for the [place] population. Serum or plasma urea nitroge n measurement (mass/volume)Ordered By: Jessica Rivera on 01-25-2025 Urea nitrogen [Mass/Vol] 10 mg/dL 4-19 [facility] Sodium levelOrdered By: Shae Rivera on 01-25-2025 Sodium [Moles/Vol] 140 mmol/L 133-145 [facility] Total proteinOrdered By: Reyes Rivera on 01-25-2025 Protein [Mass/Vol] 7.1 g/dL 5.9-8.4 [facility] Triglycerides measurementOrd ered By: Jessica Rivera on 01-25-2025 Triglyceride [Mass/Vol] 38 mg/dL <199 [facility] Comment on above: The drugs N-Acetylcy steine and Metamizole may falsely depress this assay. Normal range: <150 mg/dLBorderline High: 150-199 mg/dLHigh: 200-499 mg/dLVery High: >500 mg/dL Troponin T.cardiac High sens itivity method [Mass/Vol]Ordered By: Jessica Rivera on 01-25-2025 Troponin T High Sensitivity 16 ng/L <22 [facility] White blood cell (WBC) count Ordered By: Jessica Rivera on 01-25-2025 WBC (Bld) [#/Vol] 4.3 10*3/uL Low 4.4-11.0 [facility] Internal Medicine Office Vis iton 01-24-2025 Internal Medicine Office Visit [facility] [address] [place] [address] [place] [address] OFFICE VISIT Date of Service: 01/25/25 MR#: [id number] Acct: [id number] Name: REX SARAH Rep #: [id number] : 1960 Provider: Dr. Jessica dash MD Age/Sex: 64/M Location: [facility] Status: Signed Intake Vital Signs 12/28/24 06:39 01/25/25 09:16 Height 6 ft 1 in 6 ft 1 in Weight: 234 lb BMI 30.9 BP 122/82 H Blood Pressure Location Lt brachial Position Sitting Respiration 18 Pulse 63 Pulse Source Monitor Temp 97.8 F Temp Source Temporal Pulse Oximetry (%) 96 Oxygen Delivery Method room air Intake Visit Reasons: ACUTE - SOB Chief Complaint: ACUTE-SOB Is patient in pain?: No Allergies No Known Allergies Allergy (Verified 01/25/25 08:19) Medications ???Medication ???Instructions ???Recorded ???Confirmed ???Type meloxicam 15 mg tablet 15 mg PO DAILY PRN arthritis #90 09/15/24 01/25/25 Rx tabs aspirin 81 mg tablet,delayed 81 mg PO QDAY 09/22/24 01/25/25 Hi story release (Adult Low Dose Aspirin) pantoprazole 40 mg tablet,delayed 40 mg PO QDAY #30 tabs 11/30/24 0 01/25/25 Rx release zquil PO HS PRN 01/25/25 History Have you fallen in the past year?: No Nurse's Note: pt reports that he was at an auction on Friday and had to park at the top of a hill. pt noted that he was short of breath walking to and from his truck and had to take a couple of breaks to catch his breath. pt reports since then he has noticed getting short of breath just walking to the kitchen to get a drink at night pt denies chest pain but states he has noticed a chest tightness every so often that last about a minute or two pt reports that when he takes his protonix that this seems to lessen the chest tightness PFSH Medical History COVID-19 Restless legs Heartburn Encounter for preventative adult health care examination Hx of degenerative disc disease Hx of osteoarthritis History of hearing problem History of back problems Wears hearing aid Wears glasses Arthritis Former smoker Leg cramps History of pain when walking History of stress test Surgical History History of left shoulder replacement History of right shoulder replacement Hx of colonoscopy History of total right knee replacement History of left knee replacement Hx of rotator cuff surgery Hx of rotator cuff surgery Family History Daughter Anemia Anxiety Thyroid disorder Grandmother Colon cancer Paternal Mother Diabetes Myocardial infarction Heart disease Hypertension Father Dementia Brother Diabetes Social History household members: spouse housing: house 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 He normally sees Dr. Squires. He has concerns about shortness of breath. He reports that on Friday he went to an auction and had to park on a hill. He reports he had to go to his car a couple of times and each time, he felt short of breath. He states since then, he has noticed a couple episodes of chest tightness. He has checked his blood pressure at home and it has been normal. He reports his had a history of blood clots, so she wanted him to get checked out. He reports before Friday, he felt fine. He hasn't been feeling sick and hasn't been having any fevers, but later said he was ill about a month ago. He reports he started taking his protonix again on Friday when his symptoms started and thinks it may have helped a little. He reports his symptoms have since resolved. He reports he had a stress test a few years ago through [facility] and it was normal. At that time, his symptoms were different noting he had numbness/tingling down his left arm, which he didn't have this time. The patient reports he is normally very active, exercising a few times per week. ROS Const Constitutional: No body ache, chills, excessive sweating, fatigue, fever(s), frequent falls, headache(s), snoring, weight change, sleep problems, abnormal sleep pattern or change in appetite Eyes Eyes: No blurry vision, change in vision, eye pain or Lig (more content not included)... Normal [facility] Urgent Care Visit Reporton 0 12-28-2024 Urgent Care Visit Report [facility] [address] , [address] [place] [address] OFFICE VISIT Date of Service: 12/28/24 MR#: [id number] Acct: [id number] Name: REX SARAH Rep #: [id number] : 1960 Provider: MILKA Anderson Age/Sex: 64/M Location: [facility] Status: Signed Intake Vital Signs 12/01/24 08:50 12/28/24 06:39 Height 6 ft 1 in 6 ft 1 in BP 156/96 H Blood Pressure Location Lt brachial Position Sitting Respiration 14 Pulse 83 Pulse Source Monitor Temp 98.3 F Temp Source Oral Pulse Oximetry (%) 96 Oxygen Delivery Method room air Intake Visit Reasons: COUGH/CONGESTION Blood Tester Required: No Accompanied by: Self Is patient in pain?: No Allergies No Known Allergies Allergy (Verified 12/28/24 06:38) Medications ???Medication ???Instructions ???Recorded ???Confirmed ???Type meloxicam 15 mg tablet 15 mg PO DAILY PRN arthritis #90 09/15/24 12/28/24 Rx tabs aspirin 81 mg tablet,delayed 81 mg PO QDAY 09/22/24 12/28/24 Hi story release (Adult Low Dose Aspirin) diphenhydramine HCl 25 mg capsule 25 mg PO Q8H PRN sleep 11/29/24 0 12/28/24 History (Benadryl) pantoprazole 40 mg tablet,delayed 40 mg PO QDAY #30 tabs 11/30/24 0 12/28/24 Rx release azithromycin 250 mg tablet 250 mg PO .COMPLEX #12 tabs 12/28/24 Rx benzonatate 200 mg capsule 200 mg PO TID PRN cough #20 caps 0 12/28/24 12/28/24 Rx Have you fallen in the past year?: No PFSH Medical History Restless legs Heartburn Encounter for preventative adult health care examination Hx of degenerative disc disease Hx of osteoarthritis History of hearing problem History of back problems Wears hearing aid Wears glasses Arthritis Former smoker Leg cramps History of pain when walking History of stress test Surgical History Hx of colonoscopy History of total right knee replacement History of left knee replacement Hx of rotator cuff surgery Hx of rotator cuff surgery Family History Daughter Anemia Anxiety Thyroid disorder Grandmother Colon cancer Paternal Mother Diabetes Myocardial infarction Heart disease Hypertension Father Dementia Brother Diabetes Social History household members: spouse housing: house 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 sexually active: Yes Smoking Status: Former smoker quit status: quit date established alcohol intake: current alcohol intake frequency: holidays/special occasions only substance use type: does not use what type of physical activity do you participate in: walking and bicycling frequency: 3-4 times per week seatbelt use: always do you feel safe at home: Yes HPI HPI Details: REX SARAH, is a 64 M who presents to the office today for initial evaluation at [facility] for approximately 1-1/2-week history of progressively worsening facial pressure/congestion with purulent postnasal drip/cough and bilateral ear pressure. No complaints of fever, chills, myalgias, fatigue, runny nose, or nausea/vomiting/diar christian. No complaints of chest pain/shortness of breath/dyspnea on exertion. No close contacts with similar complaints. No other associated symptoms and no other alleviating/aggravat ing factors. ROS Const Constitutional: No other (as above) Exam Const General: cooperative, healthy appearing and no acute distress Nutritional Appearance: average body habitus Orientation: alert, awake and oriented x3 HENMT Head: normal to inspection Ears: hearing grossly normal bilaterally, external ears normal, TM's normal bilaterally and EAC's normal Nose: external nose normal, nares normal, septum normal and no nasal discharge Face and sinus: normal facial exam, sinuses nontender (Though bilateral maxillary fullness to palpation) and face symmetric Mouth: oral mucosae normal, lip normal, tongue normal and oropharynx normal Throat: posterior oropharynx normal, tonsils normal, uvula midline and postnasal drainage (Purulent) Eyes General: appearance normal, both eyes and all related structures Neck Neck: normal visual inspection, full ROM, no meningeal signs, supple and lymphadenopathy (Bilateral anterior cervical lymph node swelling/tender to palpation) Neck mass: No Thyroid: thyroid normal Chest Chest palpation inspection: normal inspection of the chest Resp Effort Inspection: normal respiratory effort and able to speak in complete sentences Auscultation: Bilateral: Clear to Auscultation Cardio Palpation: normal PMI Rate: regular rate Rhythm: regular rhythm Heart Sounds: S1 normal (more content not included)... Normal [facility] Colonoscopy Reporton 025 Colonoscopy Report [facility] Medical Records Department [address] [place] [address] Colonoscopy Report MR#: [id number] Acct: [id number] Name: REX SARAH Rep #: [id number] : 1960 64 From: Aditya Cummings DO PCP: Dr. Joe Squires DO Status:[facility] [place] Patient Name: Rex Sarah Procedure Date: 12/01/2024 10:25 AM Date of : 1960 Age: 64 Procedure: Colonoscopy Indications: Screening for colorectal malignant neoplasm Providers: Aditya Cummings DO Referring MD: Joe Squires Medicines: Monitored Anesthesia Care Patient Profile: Refer to note in patient chart for documentation of history and physical. Last Colonoscopy: 3 years ago. Last Colonoscopy: 10 years ago. Complications: No immediate complications. Procedure: Pre-Anesthesia Assessment: - Prior to the procedure, a History and Physical was performed, and patient medications and allergies were reviewed. The patient is competent. The risks and benefits of the procedure and the sedation options and risks were discussed with the patient. All questions were answered and informed consent was obtained. Patient identification and proposed procedure were verified by the physician in the pre-procedure area. Mental Status Examination: alert and oriented. Airway Examination: normal oropharyngeal airway and neck mobility. Respiratory Examination: clear to auscultation. CV Examination: normal. Prophylactic Antibiotics: The patient does not require prophylactic antibiotics. Prior Anticoagulants: The patient has taken no anticoagulant or antiplatelet agents except for NSAID medication. ASA Grade Assessment: II - A patient with mild systemic disease. After reviewing the risks and benefits, the patient was deemed in satisfactory condition to undergo the procedure. The anesthesia plan was to use monitored anesthesia care (MAC). Immediately prior to administration of medications, the patient was re-assessed for adequacy to receive sedatives. The heart rate, respiratory rate, oxygen saturations, blood pressure, adequacy of pulmonary ventilation, and response to care were monitored throughout the procedure. The physical status of the patient was re-assessed after the procedure. After I obtained informed consent, the scope was passed under direct vision. Throughout the procedure, the patient's blood pressure, pulse, and oxygen saturations were monitored continuously. The colonoscope was introduced through the anus and advanced to the cecum, identified by appendiceal orifice and ileocecal valve. The colonoscopy was performed without difficulty. The patient tolerated the procedure well. The quality of the bowel preparation was poor. The ileocecal valve, appendiceal orifice, and rectum were photographed. Scope In: 10:28:37 AM Scope Withdrawal Time 0 hours 8 minutes 35 seconds Scope Out: 10:45:54 AM Total Procedure Duration Time 0 hours 17 minutes 17 seconds Findings: The perianal and digital rectal examinations were normal. Multiple small and large-mouthed diverticula were found in the rectum, recto-sigmoid colon, sigmoid colon, descending colon, splenic flexure, transverse colon, hepatic flexure and ascending colon. Stool was found in the rectum, in the recto-sigmoid colon, in the sigmoid colon, in the descending colon, at the splenic flexure and in the transverse colon. A 7 mm polyp was found in the ascending colon. The polyp was sessile. The polyp was removed with a jumbo cold forceps. Resection and retrieval were complete. Verification of patient identification for the specimen was done. Estimated blood loss was minimal. Impression: - Preparation of the colon was poor. - Diverticulosis in the rectum, in the recto-sigmoid colon, in the sigmoid colon, in the descending colon, at the splenic flexure, in the transverse colon, at the hepatic flexure and in the ascending colon. - Stool in the rectum, in the recto-sigmoid colon, in the sigmoid colon, in the descending colon, at the splenic flexure and in the transverse colon. - One 7 mm polyp in the ascending colon, removed with a jumbo cold forceps. Resected and retrieved. Recommendation: - Repeat colonoscopy in 1 year because the bowel preparation was suboptimal. - Continue present medications. Procedure Code(s): --- Professional --- 68576, Colonoscopy, flexible; with biopsy, single or multiple CPT copyright 2021 [employer]. All rights reserved. The codes documented in this report are preliminary and upon clinical coder review may be revised to meet current compliance requirements. Aditya Cummings DO 12/01/2024 11:02:46 AM This report has been signed electronically. Number of Addenda: 0 Note Initiated On: 12/01/2024 10:25 AM 12/01/24 1103 Date Aditya Friend DO (more content not included)... [facility] MR/POSTOP.ANEon 12-01-2024 MR/POSTOP.[facility] Medical Records Department [address] [place] [address] Anesthesia Postop Eval I 12/01/24 1054 MR#: [id number] Acct: [id number] Name: REX SARAH Cain Rep #: [id number] : 1960 64 From: Lorena Giles PCP: Dr. Joe Squires, DO Status:REG SDC Y Race: C Location: EN Anesthesia: Postop Eval I Current Vital Signs Temperature: 97 F Pulse Rate: 68 Blood Pressure: 132/82 Respiratory Rate: 16 Pulse Ox: 96 Oxygen Delivery Method: Room Air Assessment Airway patent: Yes Spontaneous unlabored respirations: Yes Mental status: Asleep nausea: No Vomiting: No Anesthesia Complication: No Fluid Hydration Crystalloid volume administer (ml): 40 Total IV fluid infused: 40 Progress Note Anesthesia document: Postop Eval 1 completed: Yes 12/01/24 1055 Date Lorena Gustafson Signature: Date CC: Signed [facility] MR/METIJUTC8da 12-01-2024 MR/POSTOPAN2 [facility] Medical Records Department [address] [place] [address] Anesthesia Postop Eval II 12/01/24 1140 MR#: [id number] Acct: [id number] Name: JACQUELINE SARAHVALENCIA Barlow Rep #: [id number] : 1960 64 From: Yael Nicolas PCP: Dr. Joe Squires, DO Status:REG SDC Y Race: C Location: EN Anesthesia Postop Eval I Sum Postop Eval Completion status Anesthesia document: Postop Eval 1 completed: Yes Anesthesia Postop Eval I Summary Anesthesia Postop Eval I Summary: Anesthesia Postop Eval I: Assessment Summary Airway patent Yes 12/01/24 10:55 [email or web address] Spontaneous unlabored Yes 12/01/24 10:55 [email or web address] respirations Mental status Asleep 12/01/24 10:55 [email or web address] nausea No 12/01/24 10:55 [email or web address] Vomiting No 12/01/24 10:55 [email or web address] Anesthesia Postop Eval I: Fluid Summary Crystalloid volume administer 40 12/01/24 10:55 [email or web address] (ml) Colloids volume administered ( ml) Blood Product volume administered (ml) Total IV fluid infused 40 12/01/24 10:55 [email or web address] Anesthesia Postop Eval I: Summary Notes Anesthesia Complication No 12/01/24 10:55 [email or web address] Anesthesia Complication Comment: Post-operative progress note Anesthesia: Postop Eval II Evaluation Mental status: Awake and Calm Pain Level: 0 nausea: No Vomiting: No 12/01/24 1140 Date Yael eddy Gustafson Signature: Date CC: Signed Normal [facility] Surgery Specimen Level Kiet 12-01-2024 Surgery Specimen Level IV Patient Age/Sex Location Account Attending Physician REX SARAH 64/M EN [id number] Aditya Cummings DO Specimen: [id number] Received: 12/01/24 Status: AMY David Num: [id number] Spec Type: COLON BX Subm Dr: Aditya Cummings DO HEADMELANIE OPERATION: Colonoscopy with biopsy PRE-OP DIAGNOSIS: Encounter for screening for malignant neoplasm of colon TISSUE SUBMITTED: Ascending colon polyp biopsy MICROSCOPIC DIAGNOSIS Ascending colon polyp, biopsy: Tubular adenoma. . 12/02/2024 MICROSCOPIC DESCRIPTION Slides are reviewed. GROSS DESCRIPTION Received in fixative is one container labeled with the patient's name and designated Ascending colon polyp biopsy. The specimen consists of two irregular fragments of light wade soft tissue that in aggregate measure 0.3 x 0.2 x 0.1 cm. The specimen is totally submitted in one cassette. ARMAND. 12/01/2024 TC:1 CPT:60316 Patient Age/Sex Location Account Attending Physician REX SARAH 64/M EN [id number] Aditya Cummings DO Signed (signature on file) Dr. Garry Cervantes MD 12/02/24 1213 Normal [facility] Comment on above: Performed By: #### P SUIV #### [facility] [address] [place], [place], [address] Internal Medicine Office Vis iton 11-30-2024 Internal Medicine Office Visit [facility] [place], [place] [address] OFFICE VISIT Date of Service: 11/30/24 MR#: [id number] Acct: [id number] Name: REX SARAH Rep #: [id number] : 1960 Provider: Dr. Joe R Br own, DO Age/Sex: 64/M Location: [facility] Status: Signed Intake Vital Signs 09/22/24 11:10 11/30/24 13:20 Height 6 ft 1 in 6 ft 1 in Weight: 234 lb 228 lb 2 oz BMI 30.9 30.1 BP 140/82 H Blood Pressure Location Rt brachial Position Sitting Respiration 16 Pulse 70 Pulse Source Monitor Temp 97.5 F L Temp Source Temporal Pulse Oximetry (%) 98 Oxygen Delivery Method room air Intake Visit Reasons: stomach issues Chief Complaint: scopes batsheva possible GERD Blood Tester Required: No Accompanied by: Self Is patient in pain?: No Allergies No Known Allergies Allergy (Verified 11/30/24 13:19) Medications ???Medication ???Instructions ???Recorded ???Confirmed ???Type meloxicam 15 mg tablet 15 mg PO DAILY PRN arthritis #90 09/15/24 11/30/24 Rx tabs aspirin 81 mg tablet,delayed 81 mg PO QDAY 09/22/24 11/30/24 Hi story release (Adult Low Dose Aspirin) diphenhydramine HCl 25 mg capsule 25 mg PO Q8H PRN sleep 11/29/24 0 11/30/24 History (Benadryl) pantoprazole 40 mg tablet,delayed 40 mg PO QDAY #30 tabs 11/30/24 0 11/30/24 Rx release Have you fallen in the past year?: No PFSH Medical History Restless legs Heartburn Encounter for preventative adult health care examination Hx of degenerative disc disease Hx of osteoarthritis History of hearing problem History of back problems Wears hearing aid Wears glasses Arthritis Former smoker Leg cramps History of pain when walking History of stress test Surgical History Hx of colonoscopy History of total right knee replacement History of left knee replacement Hx of rotator cuff surgery Hx of rotator cuff surgery Family History Daughter Anemia Anxiety Thyroid disorder Grandmother Colon cancer Paternal Mother Diabetes Myocardial infarction Heart disease Hypertension Father Dementia Brother Diabetes Social History household members: spouse housing: house 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 For the last 6 months or so he has had pain on the right and left side of his abdomen. It is not associated with diarrhea constipation or vomiting. He has had no weight loss. He has had no food intolerance. He is scheduled for routine colonoscopy tomorrow. He exercises regularly, but has no exertional pain. He does have a lot of gas and fullness in the stomach and does have some reflux type of symptoms, but his symptoms almost seem to be more indigestion than they do appear reflux. ROS Const Constitutional: No body ache, excessive sweating, fatigue, fever(s), frequent falls, headache(s), snoring, weakness, weight change, sleep problems or change in appetite Eyes Eyes: No blurry vision, change in vision, eye pain or Light sensitivity ENT ENT: No abnormal hearing, ear or mastoid pain, tinnitus, nasal congestion, headache(s), neck pain or sore throat Resp Respiratory: No cough, shortness of breath, snoring or wheezing Cardio Cardiology: No chest pain at rest, chest pain with exertion, excessive sweating, shortness of breath, dyspnea on exertion, lightheadedness, orthopnea or palpitations Gastro GI: No abdominal pain, change in bowel habits, constipation, cramping, diarrhea, nausea/dyspepsia or vomiting Genitourinary Male: No burning urination, painful urination, urinary incontinence, urinary frequency or blood in urine Musc Musculoskeletal: No abnormal gait, joint pain, back pain, limited range of motion, neck pain, numbness, stiffness, tingling or Arthritis Skin Skin: No dry skin, redness, lesions, itchy eyes, rash or wounds Neuro Neurology: No abnormal gait, abnormal hearing, abnormal speech, dizziness, weakness, frequent falls, headache(s), memory loss, numbness or tingling Psych Psychiatric: No anxiety, No change in appetite, No depression, No memory loss and No Th (more content not included)... Normal [facility] Office Visit Reporton 2023 Office Visit Report [facility] [address] [place] [address] OFFICE VISIT Date of Service: 09/21/24 MR#: [id number] Acct: [id number] Patient: REX SARAH Rep #: [id number] : 1960 Provider: ROXY NURSE Age/Sex: 64/M Location: [facility] Status: Signed Intake Vital Signs 09/15/24 09:17 Height 6 ft 1 in Weight: 234 lb BMI 30.9 BP 142/84 H Blood Pressure Location Lt brachial Position Sitting Respiration 14 Pulse 64 Pulse Source Monitor Temp 97.1 F L Temp Source Temporal Pulse Oximetry (%) 99 Oxygen Delivery Method room air Intake Visit Reasons: Flu Shot Chief Complaint: I need a colonoscopy set up. Allergies No Known Allergies Allergy (Verified 09/22/24 11:04) Have you fallen in the past year?: No Immunizations Fluad Triv (65y up)(PF) 45 mcg (15 mcg x 3)/0.5 mL IM syringe Performing Provider: Joe Squires DO Performing Location: [facility] Administered by: Glenis Olivares MA on 09/21/24 11:10 Dose Route Admin Location Dispensed Lot Number Expiration Date NDC Man ufacturer 45 mcg IM Left Deltoid 0.5 mL [id number] 02/11/25 01956-072-35 [employer] VIS Given Date VIS Provided VIS Publication Date 09/21/24 Single Vaccine 24 Eligibility Eligibility Date Funding Source Not Applicable Assessment and Plan Assessment and Plan Orders: Orders Influenza Immunization 09/21/24 Z23 - Encounter for immunization Clinical Quality Measures Falls Risk Screening/Assistive Devices Have you fallen in the past year?: No 11/10/24 0850 Date Joe Squires DO Cosigner Signature: Date (if applicable) CC: Normal [facility] Internal Medicine Office Vis cherelle 09-15-2024 Internal Medicine Office Visit [facility] [address] [place] [address] OFFICE VISIT Date of Service: 09/15/24 MR#: [id number] Acct: [id number] Name: REX SARAH Rep #: [id number] : 1960 Provider: Dr. Joe Archer own, DO Age/Sex: 64/M Location: [facility] Status: Signed Intake Vital Signs 05/30/24 07:50 09/15/24 09:17 Height 6 ft 1 in 6 ft 1 in Weight: 234 lb BMI 30.9 BP 142/86 H 142/84 H Blood Pressure Location Lt brachial Lt brachial Position Sitting Sitting Respiration 16 14 Pulse 58 L 64 Pulse Source NIBP Monitor Temp 98.5 F 97.1 F L Temp Source Temporal Temporal Pulse Oximetry (%) 99 99 Oxygen Delivery Method room air room air Intake Visit Reasons: joint issues Chief Complaint: I need a colonoscopy set up. Blood Tester Required: No Is patient in pain?: No Allergies No Known Allergies Allergy (Verified 05/30/24 07:59) Medications ???Medication ???Instructions ???Recorded ???Confirmed ???Type NK 09/15/24 09/15/24 History meloxicam 15 mg tablet 15 mg PO DAILY PRN arthritis #90 09/15/24 09/15/24 Rx tabs meloxicam 15 mg tablet 15 mg PO DAILY PRN arthritis #90 09/15/24 09/15/24 Rx tabs meloxicam 15 mg tablet 15 mg PO DAILY PRN arthritis #90 09/15/24 09/15/24 Rx tabs Have you fallen in the past year?: No Nurse's Note: States he needs a colonscopy. He uses Dr. cummings. 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 States he has mobic PRN however prednisone works better. [facility] Medical History Contact dermatitis due to poison rhonda Encounter for preventative adult health care examination Hx of degenerative disc disease Hx of osteoarthritis Hx of essential hypertension History of hearing problem History of back problems Wears hearing aid Wears glasses Arthritis Former smoker Leg cramps History of pain when walking History of stress test Hypertension Surgical History History of total right knee replacement History of right shoulder replacement History of left shoulder replacement History of left knee replacement Hx of rotator cuff surgery Hx of rotator cuff surgery Family History Daughter Anemia Anxiety Thyroid disorder Grandmother Colon cancer Mother Diabetes Myocardial infarction Heart disease Hypertension Father Dementia Brother Diabetes Social History household members: spouse housing: house 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 Details: REX SARAH, is a 64 M who presents to the office today for request for prednisone. Apparently he was given that to him by walk-in clinic for itchiness that he had from mosquito bites and a course as expected it helped his arthritis pain. I explained to him that while short-term prednisone is probably okay long-term prednisone is most certainly not and it is not an appropriate drug to take for arthritis pain. I told him taking the Mobic on an as-needed basis is certainly the safer option. ROS Const Constitutional: No body ache, chills, excessive sweating, fatigue, fever(s), frequent falls, headache(s), snoring, weakness, sleep problems or change in appetite Eyes Eyes: No blurry vision, change in vision, eye pain or Light sensitivity ENT ENT: No abnormal hearing, ear or mastoid pain, tinnitus, nasal congestion, headache(s), neck pain or sore throat Resp Respiratory: No cough, shortness of breath, snoring or wheezing Cardio Cardiology: No chest pain at rest, chest pain with exertion, excessive sweating, shortness of breath, dyspnea on exertion, lightheadedness, orthopnea or palpitations Gastro GI: No abdominal pain, change in bowel habits, constipation, cramping, diarrhea, nausea/dyspepsia or vomiting Genitourinary Male: No burning urination, painful urination, urinary incontinence or urinary frequency Musc Musculoskeletal: No abnormal gait, joint pain, back pain, limited range of motion, neck pain or numbness Skin Ski (more content not included)... Normal [facility] Office Visit Reporton 2023 Office Visit Report [facility] [address] [place] [address] OFFICE VISIT Date of Service: 05/30/24 MR#: [id number] Acct: [id number] Patient: REX SARAH Rep #: [id number] : 1960 Provider: LAQUITA allan Age/Sex: 63/M Location: [facility] Status: Signed Intake Vital Signs 03/31/24 09:02 05/30/24 07:50 Height 6 ft 1 in 6 ft 1 in Weight: 234 lb BMI 30.9 BP 122/82 H 142/86 H Blood Pressure Location Lt brachial Lt brachial Position Sitting Sitting Respiration 16 16 Pulse 58 L 58 L Pulse Source Monitor NIBP Temp 97.1 F L 98.5 F Temp Source Temporal Temporal Pulse Oximetry (%) 97 99 Oxygen Delivery Method room air room air Intake Visit Reasons: BUG BITE Chief Complaint: mosquito bites Blood Tester Required: No Is patient in pain?: No Allergies No Known Allergies Allergy (Verified 05/30/24 07:59) Have you fallen in the past year?: No Nurse's Note: mosquito bites x 2 days to bilateral ankles and wrist/arms per pt. intense itching. pt denies concern for infection or pain/spreading. states his made him come because he is crawling out of his skin trying not to scratch. [facility] Medical History (Updated 05/30/24 @ 08:09 by Jamal Pappas NP, [employer]PA[employer]ER [employer]) Contact dermatitis due to poison rhonda Encounter for preventative adult health care examination Hx of degenerative disc disease Hx of osteoarthritis Hx of essential hypertension History of hearing problem History of back problems Wears hearing aid Wears glasses Arthritis Former smoker Leg cramps History of pain when walking History of stress test Hypertension Surgical History History of total right knee replacement History of right shoulder replacement History of left shoulder replacement History of left knee replacement Hx of rotator cuff surgery Hx of rotator cuff surgery Family History Daughter Anemia Anxiety Thyroid disorder Grandmother Colon cancer Mother Diabetes Myocardial infarction Heart disease Hypertension Father Dementia Brother Diabetes Social History (Updated 12/17/23 @ 08:48 by Glenis Olivares MA) household members: spouse housing: house 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 He notes this on his arms and ankles. He states that he was bit by mosquitoes 2 days ago on his ankle and wrist area. He states that his been incredibly itchy. An attempt not to itch it, he feels like he is crawling out of his skin. This has been aggravating to his who instruct that he come into our office/clinic to be evaluated to assist with itching. ROS Const Constitutional: No body ache, chills, fever(s), malaise or night sweats Resp Respiratory: No shortness of breath Cardio Cardiology: No chest pain at rest or chest pain with exertion Skin Skin: Positive for redness, lesions and other (itching) Exam Const General: cooperative, healthy appearing, comfortable, no acute distress, not in acute distress and not in distress Nutritional Appearance: well nourished Orientation: alert, awake and oriented x3 Chest Chest palpation inspection: normal inspection of the chest Resp Effort Inspection: normal respiratory effort Skin Lesions: lesion noted (ankles and wrists) and other (raised, red, small, round) Coding Level of Care Code Off vis,est,level 3 Diagnoses Insect bite, unspecified site, initial encounter W57.XXXA Encounter type: initial encounter Site of insect bite: unspecified site Assessment and Plan Assessment and Plan (1) Insect bite: Status: Acute Qualifiers: Encounter type: initial encounter Site of insect bite: unspecified site Qualified Code(s): W57.XXXA - Bitten or stung by nonvenomous insect and other nonvenomous arthropods, initial encounter Plan: The etiology is unclear. He notes approximately 2 days ago being outside in mid afternoon and getting bit by mosquitoes. Assuming such is correct, will treat his itch as an inflammatory related process. He was encouraged to continue with [id number] measures as he has been doing. We will add prednisone/steroid therapy. If complete resolution after day 3, he may discontinue altogether. If however, sym (more content not included)... Normal [facility] Internal Medicine Office Vis iton 03-31-2024 Internal Medicine Office Visit [facility] [address] [place] [address] [place] [address] OFFICE VISIT Date of Service: 03/31/24 MR#: [id number] Acct: [id number] Name: REX SARAH Rep #: [id number] : 1960 Provider: Dr. Joe vinson, DO Age/Sex: 63/M Location: [facility] Status: Signed Intake Vital Signs 12/17/23 08:48 03/31/24 09:02 Height 6 ft 1 in 6 ft 1 in Weight: 231 lb 234 lb BMI 30.4 30.9 BP 122/82 H 122/82 H Blood Pressure Location Lt brachial Lt brachial Position Sitting Sitting Respiration 16 16 Pulse 90 58 L Pulse Source Monitor Monitor Temp 98.8 F 97.1 F L Temp Source Temporal Temporal Pulse Oximetry (%) 98 97 Oxygen Delivery Method room air room air Intake Visit Reasons: 3 M FU Chief Complaint: Recheck nail fungus Blood Tester Required: No Is patient in pain?: No Allergies No Known Allergies Allergy (Verified 12/17/23 08:43) Medications ???Medication ???Instructions ???Recorded ???Confirmed ???Type ibuprofen-diphenhydr amine citrate 2 cap PO .at bedtime 05/31/22 03/31/24 History 200 mg-38 mg tablet (Advil PM) acetaminophen 500 mg tablet 1,000 mg PO QHS PRN Arthritis 10/16/22 03/31/24 History (Tylenol Extra Strength) diphenhydramine HCl 25 mg tablet 25 mg PO QHS PRN sleep 10/16/22 03/31/24 History (Benadryl Allergy) ciclopirox 8 % topical solution 1 applic topical QHS 4 weeks #6.6 03/31/24 03/31/24 Rx mL Nurse's Note: States terbinafine made him nauseated dc'd a week ago toe fungus is about gone. [facility] Medical History (Updated 03/31/24 @ 09:[address] Joe Squires, DO) Contact dermatitis due to poison rhonda Encounter for preventative adult health care examination Hx of degenerative disc disease Hx of osteoarthritis Hx of essential hypertension History of hearing problem History of back problems Wears hearing aid Wears glasses Arthritis Former smoker Leg cramps History of pain when walking History of stress test Hypertension Surgical History History of total right knee replacement History of right shoulder replacement History of left shoulder replacement History of left knee replacement Hx of rotator cuff surgery Hx of rotator cuff surgery Family History Daughter Anemia Anxiety Thyroid disorder Grandmother Colon cancer Mother Diabetes Myocardial infarction Heart disease Hypertension Father Dementia Brother Diabetes Social History (Updated 12/17/23 @ 08:48 by Glenis Olivares MA) household members: spouse housing: house 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 He took his medication for 2 months and then it started upsetting his stomach so he stopped it. He says the nail has partially cleared. He is seeing a chiropractor for his back pain and also getting massage. He started going getting a pedicure also. Exam Const General: cooperative, healthy appearing and no acute distress Nutritional Appearance: average body habitus Orientation: alert, awake and oriented x3 HENMT Head: normal to inspection Ears: external ears normal and hearing grossly impaired (wears hearing aids, but still struggles with hearing. ) Nose: external nose normal Eyes General: appearance normal, both eyes and all related structures Neck Neck: normal visual inspection, full ROM and no meningeal signs Chest Chest palpation inspection: normal inspection of the chest Resp Effort Inspection: normal respiratory effort and able to speak in complete sentences Auscultation: Bilateral: Clear to Auscultation Cardio Palpation: normal PMI Rate: regular rate Rhythm: regular rhythm Heart Sounds: S1 normal, S2 normal, no gallops, no murmurs and no rubs Pulses: radial pulses present GI Inspection: normal to inspection Skin Lesions: no lesions Nails: yellow and thickened (typical onchomycosis but about 50% cleared.) Neuro General: patient alert, patient awake and patient oriented x3 Cognition: normal cognition Speech: speech normal Psych Appearance: grossly normal Mental Status: mental status grossly normal Mood: congruent mood Affect: normal affect Speech and Movement: speech and movement norm (more content not included)... Normal [facility] Comprehensive Metabolic Prof ilon 03-09-2024 Albumin [Mass/Vol] 3.9 g/dL Normal 3.2-5.0 [facility] Comment on above: Performed By: #### L 500.4050 #### [facility] [address] [place], [address] Albumin/Globulin [Mass ratio] 1.4 {ratio} Normal 0.9-2.4 [facility] Comment on above: Performed By: #### L [id number] #### [facility] [address] [place], [address] ALK P 77 U/L Normal 45-117 [facility] Comment on above: Performed By: #### L [id number] #### [facility] [address] [place], [address] ALT [Catalytic activity/Vol] 20 U/L Normal 16-61 [facility] Comment on above: Performed By: #### [id number] #### [facility] [address] [place], [address] AST [Catalytic activity/Vol] 24 U/L Normal 15-37 [facility] Comment on above: Performed By: #### L [id number] #### [facility] [address] [place], [address] Bilirubin [Mass/Vol] 0.60 mg/dL Normal 0.20-1.00 [facility] Comment on above: Result Comment: For patients on eltrombopag therapy, use of Dimension [place] TBIL is not recommended. Performed By: #### L [id number] #### [facility] [address] [place], [address] BUN/CRE 10.9 RATIO Normal 10-20 [facility] Comment on above: Performed By: #### L [id number] #### [facility] [address] [place], [address] CA,Total 9.2 mg/dL Normal 8.5-10.1 [facility] Comment on above: Performed By: #### L [id number] #### [facility] [address] [place], [address] Chloride [Moles/Vol] 107 mmol/L Normal 98-107 [facility] Comment on above: Performed By: #### L [id number] #### [facility] [address] [place], [address] CO2 [Moles/Vol] 25.0 mmol/L Normal 21.0-32.0 [facility] Comment on above: Performed By: #### L [id number] #### [facility] [address] [place], [address] Creatinine [Mass/Vol] 0.91 mg/dL Normal 0.70-1.30 [facility] Comment on above: Result Comment: The validity of the calculated GFR GFRAA in patients over 70 years has not been determined. Clinical correlation is essential. Performed By: #### L [id number] #### [facility] [address] [place], [address] EST GFR - AA 107 mL/min Normal >60 [facility] Comment on above: Result Comment: Afri can [place] GFR Calc Performed By: #### L [id number] #### [facility] [address] [place], [address] GAP 7 Normal 5-15 [facility] Comment on above: Performed By: #### L [id number] #### [facility] [address] [place], [address] GFR/1.73 sq M.predicted among non-blacks MDRD (S/P/Bld) [Vol rate/Area] 89 mL/min/{1.73_m2} Normal >60 [facility] Comment on above: Result Comment: Non- GFR Calc Performed By: #### L [id number] #### [facility] [address] [place], [address] Globulin (S) [Mass/Vol] 2.8 g/dL Normal 2.2-4.2 [facility] Comment on above: Performed By: #### L [id number] #### [facility] [address] [place], [address] Glucose [Mass/Vol] 84 mg/dL Normal 74-106 [facility] Comment on above: Performed By: #### [id number] #### [facility] [address] [place], [address] Potassium [Moles/Vol] 4.5 mmol/L Normal 3.5-5.1 [facility] Comment on above: Performed By: #### L [id number] #### [facility] [address] [place], [address] Sodium [Moles/Vol] 139 mmol/L Normal 136-145 [facility] Comment on above: Performed By: #### L [id number] #### [facility] [address] [place], [address] T PROT 6.7 g/dL Normal 6.4-8.2 [facility] Comment on above: Performed By: #### L [id number] #### [facility] [address] [place], [address] Urea nitrogen [Mass/Vol] 10 mg/dL Normal 7-18 [facility] Comment on above: Performed By: #### L [id number] #### [facility] [address] [place], [address] Absolute lymphocyte countOrd ered By: Joe Squires on 12-17-2023 Lymphocytes Auto (Unsp spec) [#/Vol] 1.23 10*3/uL 0.83-4.51 [facility] Automated lymphocyte count a s percentage of total leukocytesOrdered By: Joe Squires on 12-17-2023 Lymphocytes/100 WBC Auto (Unsp spec) 21.1 % 19-41 [facility] Basophil percentageOrdered B y: Joe Squires on 12-17-2023 Basophils/100 WBC (Bld) 1.0 % 0-1 [facility] Eosinophils/100 WBC (Bld) 3.8 % 0-5 [facility] Hemoglobin (Bld) [Mass/Vol] 14.4 g/dL 13.0-16.5 [facility] Monocytes/100 WBC (Bld) 8.9 % 0-10 [facility] Neutrophils (Bld) [#/Vol] 3.8 10*3/uL 2.0-7.7 [facility] Neutrophils/100 WBC (Bld) 65.0 % 47-70 [facility] WBC (Bld) [#/Vol] 5.8 10*3/uL 4.4-11.0 [facility] Determination of erythrocyte mean corpuscular volume (MCV)Ordered By: Joe Squires on 12-17-2023 MCV (RBC) [Entitic vol] 93.8 fL 80-94 [facility] Erythrocyte distribution wid th ratioOrdered By: Joe Squires on 12-17-2023 Erythrocyte distribution width (RBC) [Ratio] 12.5 % 11.6-14.6 [facility] Erythrocyte distribution wid th standard deviationOrdered By: Joe Squires on 12-17-2023 Erythrocyte distribution width (RBC) [Entitic vol] 43.2 fL 35.1-43.9 [facility] Hematocrit Auto (Bld) [Volum e fraction]Ordered By: Joe Squires on 12-17-2023 Hematocrit (Bld) [Volume fraction] 42.7 % 40-54 [facility] Immature granulocytes/100 WB C Auto (Bld)Ordered By: Joe Squires on 12-17-2023 Immature granulocytes/100 WBC (Bld) 0.200 % 0.0-0.9 [facility] Comment on above: IG% - Immature Granu locytes (promyelocytes, myelocytes and metamyelocytes) > 1% indicates that a LEFT SHIFT is Present. Laboratory - Hematology and Cell countsOrdered By: Joe Squires on 12-17-2023 MCH (RBC) [Entitic mass] 31.6 pg 27.0-32.0 [facility] MCHC (RBC) [Mass/Vol] 33.7 g/dL 32-36 [facility] Nucleated RBC/100 WBC (Bld) [Ratio] 0 % 0-5 [facility] Platelet mean volume (Bld) [Entitic vol] 9.4 fL 6.2-12.0 [facility] Platelets (Bld) [#/Vol] 332 10*3/uL 150-450 [facility] No Panel InformationOrdered By: Joe Squires on 12-17-2023 Prostate Specific Antigen Screen 0.68 ng/mL 0.00-4.00 [facility] Comment on above: This test was perfor med using the TPSA assay method for the[facility]. Values obtained with differentassay methods cannot be used interchangably.When changing PSA assays in the course of monitoring apatient, additional sequential testing should be carriedout to confirm baseline values. RBC Auto (Bld) [#/Vol]Ordere d By: Joe Squires on 12-17-2023 RBC (Bld) [#/Vol] 4.55 10*6/uL 4.6-6.2 [facility] Basophil percentageOrdered B y: Joe Squires on 12-10-2023 Bilirubin [Mass/Vol] 0.70 mg/dL 0.20-1.00 [facility] Comment on above: For patients on eltr ombopag therapy, use of Dimension [place] TBIL is not recommended. Chloride [Moles/Vol] 110 mmol/L 98-107 [facility] Cholesterol [Mass/Vol] 147 mg/dL <200 [facility] Comment on above: <200 mg/dL Desirable 200-240 mg/dL Borderline >240 mg/dL High Risk Glucose [Mass/Vol] 75 mg/dL 74-106 [facility] Potassium [Moles/Vol] 4.4 mmol/L 3.5-5.1 [facility] Protein [Mass/Vol] 7.2 g/dL 6.4-8.2 [facility] Sodium [Moles/Vol] 142 mmol/L 136-145 [facility] Triglyceride [Mass/Vol] 46 mg/dL <199 [facility] Comment on above: The drugs N-Acetylcy steine and Metamizole may falsely depress this assay.Serum Triglycerides Reference Interval Normal <150 mg/dL Borderline high 150 - 199 mg/dL High 200 - 499 mg/dL Very High > or = 500 mg/dL Laboratory - Chemistry and C hemistry - challengeOrdered By: Joe Squires on 12-10-2023 Albumin/Globulin [Mass ratio] 1.1 {ratio} 0.9-2.4 [facility] ALP [Catalytic activity/Vol] 85 U/L 45-117 [facility] ALT [Catalytic activity/Vol] 27 U/L 16-61 [facility] Cholesterol in HDL [Mass/Vol] 54 mg/dL >40 [facility] Comment on above: The drugs N-Acetylcy steine and Metamizole may falsely depress this assay. Reference Range HDL <40 mg/dL Low HDL Cholesterol HDL >or= 60 mg/dL High HDL Cholesterol Cholesterol in LDL [Mass/Vol] 84 mg/dL 0-130 [facility] CO2 [Moles/Vol] 27.0 mmol/L 21.0-32.0 [facility] Globulin (S) [Mass/Vol] 3.5 g/dL 2.2-4.2 [facility] Urea nitrogen/Creatinine [Mass ratio] 10.9 mg/mg 10-20 [facility] No Panel InformationOrdered By: Joe Squires on 12-10-2023 Estimated GFR (MDRD) Amer 107 mL/min >60 [facility] Comment on above: GFR Calc Estimated GFR (MDRD) Non-Af Amer 88 mL/min >60 [facility] Comment on above: Non- GFR Calc VLDL Cholesterol 9 mg/dL 5-40 [facility] Serum or plasma calcium shira urement (mass/volume)Ordered By: Joe Squires on 12-10-2023 Calcium [Mass/Vol] 9.1 mg/dL 8.5-10.1 [facility] Serum or plasma creatinine m easurement (mass/volume)Ordered By: Joe Squires on 12-10-2023 Creatinine [Mass/Vol] 0.92 mg/dL 0.70-1.30 [facility] Comment on above: The validity of the calculated GFR & GFRAA in patients over 70 years has not been determined. Clinical correlation is essential. Serum or plasma urea nitroge n measurement (mass/volume)Ordered By: Joe Squires on 12-10-2023 Urea nitrogen [Mass/Vol] 10 mg/dL 7-18 [facility] Thin prep Papanicolaou smear with manual screeningOrdered By: Joe Squires on 12-10-2023 Thin prep Papanicolaou smear with manual screening 3.7 g/dL 3.2-5.0 [facility] Thin prep Papanicolaou smear with manual screening 25 U/L 15-37 [facility] Thin prep Papanicolaou smear with manual screening 5 5-15 [facility] Whole blood hemoglobin A1c/t otal hemoglobin ratio (mass fraction)Ordered By: Joe Squires on 12-10-2023 HbA1c (Bld) [Mass fraction] 5.3 % 3.8-5.6 [facility] Comment on above: Normal < 5.7 % Predi abetic 5.7 - 6.4 % Diabetic >or= 6.5 % Please note range changes. No Panel Informationon 05-31 Miscellaneous Test See comment [facility] Work Phone: Comment on above: Scanned image report available in EMR No Panel Informationon 05-07 POC SARS CoV-2 Antigen Positive [facility] Work Phone: No Panel Informationon 07-31 MRSA PCR MRSA NEGATIVE. MRSA DNA not detected by Real-Time Polymerase Chain Reaction (PCR). A negative result may be due to intermittent colonization. Colonization may vary depending on patient treatment, patient status or exposure to high risk environments. As with all PCR based in vitro tests, extremely low levels of target below the limit of detection of the assay may be detected, but results may not be reproducible. [facility] .Auto Diffon 07-26-2021 Basophil, Absolute 0.00 10 3/mcL Normal 0.00-0.19 [facility] ([place]) Comment on above: Performed By: #### C THROAT #### [address] [address] Basophils/100 WBC (Bld) 0.7 % Normal 0.0-2.5 A [facility] ([place]) Comment on above: Performed By: #### C THROAT #### [address] [address] Eosinophil, Absolute 0.20 10 3/mcL Normal 0.00-0.40 A [facility] ([place]) Comment on above: Performed By: #### C THROAT #### [address] [address] Eosinophils/100 WBC (Bld) 3.3 % Normal 0.0-7.0 [facility] ([place]) Comment on above: Performed By: #### C THROAT #### [address] [address] Lymphocyte, Absolute 0.90 10 3/mcL Normal 0.77-3.85 A [facility] ([place]) Comment on above: Performed By: #### C THROAT #### [address] [address] Lymphocytes/100 WBC (Bld) 14.6 % Normal 10.0-50.0 [facility] ([place]) Comment on above: Performed By: #### C THROAT #### [address] [address] Monocyte, Absolute 0.50 10 3/mcL Normal 0.15-1.00 [facility] ([place]) Comment on above: Performed By: #### C THROAT #### [address] [address] Monocytes/100 WBC (Bld) 7.6 % Normal 1.7-13.0 A [facility] ([place]) Comment on above: Performed By: #### C THROAT #### [address] [address] Neutrophils/100 WBC (Bld) 73.8 % Normal 37.0-80.0 [facility] ([place]) Comment on above: Performed By: #### C THROAT #### [address] [address] .GFRon 07-26-2021 GFR 121 ml/min/1.73sqm Normal [facility] ([place] Comment on above: Result Comment: GFR Population mean for , Non- Americans Ages 20-29 = 116 mL/min/1.73 sq.m. Ages 30-39 = 107 mL/min/1.73 sq.m. Ages 40-49 = 99 mL/min/1.73 sq.m. Ages 50-59 = 93 mL/min/1.73 sq.m. Ages 60-69 = 85 mL/min/1.73 sq.m. Ages 70+ = 75 mL/min/1.73 sq.m. Chronic Kidney Disease: Less than 60 mL/min/1.73 square meters End Stage Renal Disease: Less than 15 mL/min/1.73 square meters Performed By: #### C THROAT #### [address] [address] GFR Non- 100 ml/min/1.73sqm Normal [facility] ([place] Comment on above: Result Comment: GFR Population mean for , Non- Americans Ages 20-29 = 116 mL/min/1.73 sq.m. Ages 30-39 = 107 mL/min/1.73 sq.m. Ages 40-49 = 99 mL/min/1.73 sq.m. Ages 50-59 = 93 mL/min/1.73 sq.m. Ages 60-69 = 85 mL/min/1.73 sq.m. Ages 70+ = 75 mL/min/1.73 sq.m. Chronic Kidney Disease: Less than 60 mL/min/1.73 square meters End Stage Renal Disease: Less than 15 mL/min/1.73 square meters Performed By: #### C THROAT #### [place] [address] .NEUABSon 07-26-2021 Neutrophil, Absolute 4.50 10 3/mcL Normal 2.85-6.16 A [facility] ([place]) Comment on above: Performed By: #### C THROAT #### [place] [address] A1Con 07-26-2021 HbA1c (Bld) [Mass fraction] 5.3 % Normal 4.3-6.4 [facility] ([place] Comment on above: Performed By: #### C THROAT #### [place] [id number] BMPon 07-26-2021 BUN/Creatinine Ratio 13 ratio Normal 7-27 [facility] Comment on above: Performed By: #### C THROAT #### [place] [address] Calcium [Mass/Vol] 8.8 mg/dL Normal 8.4-10.2 [facility] ([place]) Comment on above: Performed By: #### C THROAT #### [place] [id number] Chloride [Moles/Vol] 104 mmol/L Normal 98-107 [facility] [place] Comment on above: Performed By: #### C THROAT #### [place] [id number] CO2 [Moles/Vol] 28 mmol/L Normal 23-31 [facility] [place] Comment on above: Performed By: #### C THROAT #### [place] [id number] Creatinine [Mass/Vol] 0.79 mg/dL Normal 0.70-1.30 [facility] ([place] Comment on above: Performed By: #### C THROAT #### [place] [id number] Electrolyte Balance 8.0 mEq/L Normal [facility] ([place]) Comment on above: Performed By: #### C THROAT #### [place] [address] Glucose [Mass/Vol] 80 mg/dL Normal 80-115 [facility] ([place]) Comment on above: Performed By: #### C THROAT #### [place] [address] Potassium [Moles/Vol] 4.3 mmol/L Normal 3.5-5.1 [facility] ([place] Comment on above: Performed By: #### C THROAT #### [place] [address] Sodium [Moles/Vol] 140 mmol/L Normal 136-145 [facility] ([place] Comment on above: Performed By: #### C THROAT #### [place] [address] Urea nitrogen [Mass/Vol] 10 mg/dL Normal 7-18 [facility] [place] Comment on above: Performed By: #### C THROAT #### [place] [id number] CBCon 07-26-2021 Erythrocyte distribution width (RBC) [Ratio] 13.5 % Normal 11.5-14.5 [facility] [place] Comment on above: Performed By: #### C THROAT #### [place] [id number] Hematocrit (Bld) [Volume fraction] 40.0 % Low 42.0-52.0 [facility] [place] Comment on above: Performed By: #### C THROAT #### [place] [address] Hgb 13.8 G/dL Low 14.0-18.0 [facility] [place] Comment on above: Performed By: #### C THROAT #### [place] [address] MCH (RBC) [Entitic mass] 33.1 pg High 27.0-31.2 [facility] [place] Comment on above: Performed By: #### C THROAT #### [place] [address] MCHC 34.6 G/dL Normal 31.8-35.4 [facility] [place] Comment on above: Performed By: #### C THROAT #### [place] [address] MCV (RBC) [Entitic vol] 95.6 fL High 80.0-94.0 A [facility] ([place]) Comment on above: Performed By: #### C THROAT #### [place] [address] Platelet 312 10 3/mcL Normal 130-400 [facility] [place] Comment on above: Performed By: #### C THROAT #### [place] [address] Platelet mean volume (Bld) [Entitic vol] 7.4 fL Normal 7.4-10.4 [facility] ([place] Comment on above: Performed By: #### C THROAT #### [place] [address] RBC 4.18 10 6/mcL Normal 4.04-6.13 [facility] ([place] Comment on above: Performed By: #### C THROAT #### [place] [address] WBC 6.10 10 3/mcL Normal 4.60-10.80 [facility] ([place] Comment on above: Performed By: #### C THROAT #### [place] [address] CT KNEE W/O CONTRAST RIGHTon 07-26-2021 CT KNEE W/O CONTRAST RIGHT ORIGINAL EXAMINATION: CT OF THE RIGHT KNEE WITHOUT CONTRAST 07/26/2021 10:32 am TECHNIQUE: CT of the right knee was performed without the administration of intravenous contrast. Multiplanar reformatted images are provided for review. Dose modulation, iterative reconstruction, and/or weight based adjustment of the mA/kV was utilized to reduce the radiation dose to as low as reasonably achievable. COMPARISON: None. HISTORY ORDERING SYSTEM PROVIDED HISTORY: Reason for Exam: UNILATERAL PRIMARY OSTEOARTHRITIS RIGHT KNEE. Pain of right knee. FINDINGS: There is no acute fracture or dislocation. Mild diffuse decrease in osseous mineralization is evident. No aggressive osseous lesions are noted within the provided field of view. A healed nonossifying fibroma/fibrous cortical defect noted of the lateral aspect of the distal femoral metaphysis. There is [id number] medial and lateral femorotibial compartment osteoarthrosis with joint space narrowing and marginal osteophyte formation. Chondrocalcinosis is present. Chondrocalcinosis is also present of the incompletely evaluated medial femorotibial compartment of left knee. There is moderate osteoarthrosis of the patellofemoral compartment with joint space narrowing, marginal osteophyte formation, and subchondral sclerosis. Tiny subchondral cysts are also evident. There is a small volume knee joint effusion. Multiple intracapsular osteochondral bodies are present of the popliteus tendon sheath measuring up to 1.4 cm craniocaudal dimension. Additional intracapsular osteochondral bodies are noted of the posterior and superior aspect of the medial femorotibial compartment joint space at the level of the distal femur measuring up to 5 mm. A small volume multilobulated Romero's cyst is also present. Visualized musculature is grossly unremarkable without evidence of significant atrophy. Visualized tendons are grossly intact. Ligaments are poorly evaluated on this examination. Visualized pelvic ring and right hip exhibit no acute abnormalities or aggressive osseous lesions. Survey images of the bilateral ankles exhibit no acute osseous abnormalities or aggressive osseous lesions. 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 IMPRESSION: 1. No acute osseous abnormalities. 2. Tricompartmental arthrosis, most pronounced of the patellofemoral compartment. Chondrocalcinosis of the medial and lateral femorotibial compartments. This can be seen with osteoarthrosis versus CPPD. 3. Small volume knee joint effusion with multiple intracapsular osteochondral bodies involving the posterior aspect of the medial femorotibial compartment joint space as well as the popliteus tendon sheath. 4. No aggressive osseous lesions noted within the provided field of view. Interpreted by: Santos Wesley DO Preliminary Report By: Santos Wesley DO Electronically signed By Santos Wesley DO Dictated Date: 07/26/2021 10:36:31 AM Prelim Date: 07/26/2021 10:47:36 AM Sign Date: 07/26/2021 10:47:36 AM Ordering Provider: OLEKSANDR CUEVAS [facility] ([place]) LABORATORYOrdered By: Anthony Etienne on 07-26-2021 Basophil, Absolute 0.00 103/mcL Invalid Interpretation Code 0.00 - 0.19 10^3/mcL AO Auto Heme SS Basophils/100 WBC (Bld) 0.7 % Invalid Interpretation Code 0.0 - 2.5 % AO Auto Heme SS Eosinophil, Absolute 0.20 103/mcL Invalid Interpretation Code 0.00 - 0.40 10^3/mcL AO Auto Heme SS Eosinophils/100 WBC (Bld) 3.3 % Invalid Interpretation Code 0.0 - 7.0 % AO Auto Heme SS Erythrocyte distribution width (RBC) [Ratio] 13.5 % Invalid Interpretation Code 11.5 - 14.5 % AO Auto Heme SS Hematocrit (Bld) [Volume fraction] 40.0 % Invalid Interpretation Code 42.0 - 52.0 % AO Auto Heme SS Hemoglobin (Bld) [Mass/Vol] 13.8 G/dL Invalid Interpretation Code 14.0 - 18.0 G/dL AO Auto Heme SS Lymphocyte, Absolute 0.90 103/mcL Invalid Interpretation Code 0.77 - 3.85 10^3/mcL AO Auto Heme SS Lymphocytes/100 WBC (Bld) 14.6 % Invalid Interpretation Code 10.0 - 50.0 % AO Auto Heme SS MCH (RBC) [Entitic mass] 33.1 pg Invalid Interpretation Code 27.0 - 31.2 pg AO Auto Heme SS MCHC (RBC) [Mass/Vol] 34.6 G/dL Invalid Interpretation Code 31.8 - 35.4 G/dL AO Auto Heme SS MCV (RBC) [Entitic vol] 95.6 fL Invalid Interpretation Code 80.0 - 94.0 fL AO Auto Heme SS Monocyte, Absolute 0.50 103/mcL Invalid Interpretation Code 0.15 - 1.00 10^3/mcL AO Auto Heme SS Monocytes/100 WBC (Bld) 7.6 % Invalid Interpretation Code 1.7 - 13.0 % AO Auto Heme SS Neutrophil, Absolute 4.50 103/mcL Invalid Interpretation Code 2.85 - 6.16 10^3/mcL AO Auto Heme SS Neutrophils/100 WBC (Bld) 73.8 % Invalid Interpretation Code 37.0 - 80.0 % AO Auto Heme SS Platelet mean volume (Bld) [Entitic vol] 7.4 fL Invalid Interpretation Code 7.4 - 10.4 fL AO Auto Heme SS Platelets (Bld) [#/Vol] 312 103/mcL Invalid Interpretation Code 130 - 400 10^3/mcL AO Auto Heme SS RBC (Bld) [#/Vol] 4.18 106/mcL Invalid Interpretation Code 4.04 - 6.13 10^6/mcL AO Auto Heme SS WBC (Bld) [#/Vol] 6.10 103/mcL Invalid Interpretation Code 4.60 - 10.80 10^3/mcL AO Auto Heme SS LABORATORYOrdered By: Elio Wong on 07-26-2021 Calcium [Mass/Vol] 8.8 mg/dL Invalid Interpretation Code 8.4 - 10.2 mg/dL AO ADM SS Chloride [Moles/Vol] 104 mmol/L Invalid Interpretation Code 98 - 107 mmol/L AO ADM SS CO2 [Moles/Vol] 28 mmol/L Invalid Interpretation Code 23 - 31 mmol/L AO ADM SS Creatinine [Mass/Vol] 0.79 mg/dL Invalid Interpretation Code 0.70 - 1.30 mg/dL AO ADM SS Electrolyte Balance 8.0 mEq/L Invalid Interpretation Code AO ADM SS Glucose [Mass/Vol] 80 mg/dL Invalid Interpretation Code 80 - 115 mg/dL AO ADM SS HbA1c (Bld) [Mass fraction] 5.3 % Invalid Interpretation Code 4.3 - 6.4 % AO ADM SS Potassium [Moles/Vol] 4.3 mmol/L Invalid Interpretation Code 3.5 - 5.1 mmol/L AO ADM SS Sodium [Moles/Vol] 140 mmol/L Invalid Interpretation Code 136 - 145 mmol/L AO ADM SS Urea nitrogen [Mass/Vol] 10 mg/dL Invalid Interpretation Code 7 - 18 mg/dL AO ADM SS Urea nitrogen/Creatinine [Mass ratio] 13 ratio Invalid Interpretation Code 7 - 27 ratio AO ADM SS LABORATORYOrdered By: SYSTEM SYSTEM on 07-26-2021 GFR 121 ml/min/1.73sqm Invalid Interpretation Code AO Chemistry S GFR Non- 100 ml/min/1.73sqm Invalid Interpretation Code AO Chemistry S .Auto Diffon 07-14-2021 Basophil, Absolute 0.00 10 3/mcL Normal 0.00-0.19 [facility] ([place]) Comment on above: Performed By: #### C BC, ADIFF, ANEU, LIPID, CMP, TSH, PSA #### [place] [address] #### GFR #### [address] [address] Basophils/100 WBC (Bld) 1.0 % Normal 0.0-2.5 A [facility] ([place]) Comment on above: Performed By: #### C BC, ADIFF, ANEU, LIPID, CMP, TSH, PSA #### [address] [address] #### GFR #### [address] [address] Eosinophil, Absolute 0.30 10 3/mcL Normal 0.00-0.40 A [facility] ([place]) Comment on above: Performed By: #### C BC, ADIFF, ANEU, LIPID, CMP, TSH, PSA #### [place] [address] #### GFR #### [address] [address] Eosinophils/100 WBC (Bld) 6.5 % Normal 0.0-7.0 [facility] ([place]) Comment on above: Performed By: #### C BC, ADIFF, ANEU, LIPID, CMP, TSH, PSA #### [place] [address] #### GFR #### [address] [address] Lymphocyte, Absolute 1.00 10 3/mcL Normal 0.77-3.85 A [facility] ([place]) Comment on above: Performed By: #### C BC, ADIFF, ANEU, LIPID, CMP, TSH, PSA #### [address] [address] #### GFR #### [address] [address] Lymphocytes/100 WBC (Bld) 21.9 % Normal 10.0-50.0 [facility] ([place]) Comment on above: Performed By: #### C BC, ADIFF, ANEU, LIPID, CMP, TSH, PSA #### [place] [address] #### GFR #### [address] [address] Monocyte, Absolute 0.40 10 3/mcL Normal 0.15-1.00 [facility] ([place]) Comment on above: Performed By: #### C BC, ADIFF, ANEU, LIPID, CMP, TSH, PSA #### [place] [address] #### GFR #### [address] [address] Monocytes/100 WBC (Bld) 9.0 % Normal 1.7-13.0 A [facility] ([place]) Comment on above: Performed By: #### C BC, ADIFF, ANEU, LIPID, CMP, TSH, PSA #### [place] [address] #### GFR #### [address] [address] Neutrophils/100 WBC (Bld) 61.6 % Normal 37.0-80.0 [facility] ([place] Comment on above: Performed By: #### C BC, ADIFF, ANEU, LIPID, CMP, TSH, PSA #### [place] [address] #### GFR #### [address] [address] .GFRon 07-14-2021 GFR 108 ml/min/1.73sqm Normal [facility] ([place] Comment on above: Result Comment: GFR Population mean for , Non- Americans Ages 20-29 = 116 mL/min/1.73 sq.m. Ages 30-39 = 107 mL/min/1.73 sq.m. Ages 40-49 = 99 mL/min/1.73 sq.m. Ages 50-59 = 93 mL/min/1.73 sq.m. Ages 60-69 = 85 mL/min/1.73 sq.m. Ages 70+ = 75 mL/min/1.73 sq.m. Chronic Kidney Disease: Less than 60 mL/min/1.73 square meters End Stage Renal Disease: Less than 15 mL/min/1.73 square meters Performed By: #### C THROAT #### [address] [address] GFR Non- 89 ml/min/1.73sqm Normal [facility] ([place] Comment on above: Result Comment: GFR Population mean for , Non- Americans Ages 20-29 = 116 mL/min/1.73 sq.m. Ages 30-39 = 107 mL/min/1.73 sq.m. Ages 40-49 = 99 mL/min/1.73 sq.m. Ages 50-59 = 93 mL/min/1.73 sq.m. Ages 60-69 = 85 mL/min/1.73 sq.m. Ages 70+ = 75 mL/min/1.73 sq.m. Chronic Kidney Disease: Less than 60 mL/min/1.73 square meters End Stage Renal Disease: Less than 15 mL/min/1.73 square meters Performed By: #### C THROAT #### [address] [address] .NEUABSon 07-14-2021 Neutrophil, Absolute 2.70 10 3/mcL Low 2.85-6.16 A [facility] ([place]) Comment on above: Performed By: #### C BC, ADIFF, ANEU, LIPID, CMP, TSH, PSA #### [place] [address] [address] #### GFR #### [place] [address] CBCon 07-14-2021 Erythrocyte distribution width (RBC) [Ratio] 13.4 % Normal 11.5-14.5 [facility] ([place] Comment on above: Performed By: #### C BC, ADIFF, ANEU, LIPID, CMP, TSH, PSA #### [place] [address] #### GFR #### [place] [address] Hematocrit (Bld) [Volume fraction] 40.1 % Low 42.0-52.0 [facility] ([place] Comment on above: Performed By: #### C BC, ADIFF, ANEU, LIPID, CMP, TSH, PSA #### [place] [address] #### GFR #### [place] [address] Hgb 13.7 G/dL Low 14.0-18.0 [facility] ([place] Comment on above: Performed By: #### C BC, ADIFF, ANEU, LIPID, CMP, TSH, PSA #### [place] [address] #### GFR #### [place] [address] MCH (RBC) [Entitic mass] 32.6 pg High 27.0-31.2 [facility] ([place] Comment on above: Performed By: #### C BC, ADIFF, ANEU, LIPID, CMP, TSH, PSA #### [place] [address] #### GFR #### [place] [address] MCHC 34.2 G/dL Normal 31.8-35.4 [facility] ([place] Comment on above: Performed By: #### C BC, ADIFF, ANEU, LIPID, CMP, TSH, PSA #### [place] [address] #### GFR #### [place] [address] MCV (RBC) [Entitic vol] 95.5 fL High 80.0-94.0 A [facility] ([place]) Comment on above: Performed By: #### C BC, ADIFF, ANEU, LIPID, CMP, TSH, PSA #### [place] [address] #### GFR #### [place] [address] Platelet 323 10 3/mcL Normal 130-400 [facility] ([place] Comment on above: Performed By: #### C BC, ADIFF, ANEU, LIPID, CMP, TSH, PSA #### [place] [address] #### GFR #### [place] [address] Platelet mean volume (Bld) [Entitic vol] 7.6 fL Normal 7.4-10.4 [facility] ([place] Comment on above: Performed By: #### C BC, ADIFF, ANEU, LIPID, CMP, TSH, PSA #### [place] [address] #### GFR #### [place] [address] RBC 4.20 10 6/mcL Normal 4.04-6.13 [facility] ([place] Comment on above: Performed By: #### C BC, ADIFF, ANEU, LIPID, CMP, TSH, PSA #### [place] [address] #### GFR #### [place] [address] WBC 4.40 10 3/mcL Low 4.60-10.80 [facility] ([place] Comment on above: Performed By: #### C BC, ADIFF, ANEU, LIPID, CMP, TSH, PSA #### [place] [address] #### GFR #### [place] [address] CMPon 07-14-2021 Albumin Level 3.7 G/dL Normal 3.4-4.8 [facility] ([place] Comment on above: Performed By: #### C BC, ADIFF, ANEU, LIPID, CMP, TSH, PSA #### [address] [address] #### GFR #### [address] [address] Albumin/Globulin [Mass ratio] 1.3 {ratio} Normal 1.1-2.5 [facility] ([place] Comment on above: Performed By: #### C BC, ADIFF, ANEU, LIPID, CMP, TSH, PSA #### [place] [address] #### GFR #### [address] [address] ALP [Catalytic activity/Vol] 73 U/L Normal 40-135 [facility] ([place] Comment on above: Performed By: #### C BC, ADIFF, ANEU, LIPID, CMP, TSH, PSA #### [address] [address] #### GFR #### [address] [address] ALT [Catalytic activity/Vol] 28 U/L Normal 16-63 [facility] ([place] Comment on above: Performed By: #### C BC, ADIFF, ANEU, LIPID, CMP, TSH, PSA #### [place] [address] #### GFR #### [address] [address] AST [Catalytic activity/Vol] 24 U/L Normal 10-40 [facility] ([place] Comment on above: Performed By: #### C BC, ADIFF, ANEU, LIPID, CMP, TSH, PSA #### [address] [address] #### GFR #### [place] [id number] Bili Total 0.3 mg/dL Normal 0.2-1.0 [facility] ([place] Comment on above: Result Comment: Use of this assay is not recommended for patients undergoing treatment with eltrombopag due to the potential for falsely elevated results. Performed By: #### C BC, ADIFF, ANEU, LIPID, CMP, TSH, PSA #### [address] [address] #### GFR #### [address] [address] BUN/Creatinine Ratio 7 ratio Normal 7-27 [facility] Comment on above: Performed By: #### C BC, ADIFF, ANEU, LIPID, CMP, TSH, PSA #### [place] [address] #### GFR #### [address] [address] Calcium [Mass/Vol] 9.1 mg/dL Normal 8.4-10.2 [facility] ([place]) Comment on above: Performed By: #### C BC, ADIFF, ANEU, LIPID, CMP, TSH, PSA #### [place] [address] #### GFR #### [address] [address] Chloride [Moles/Vol] 107 mmol/L Normal 98-107 [facility] [place] Comment on above: Performed By: #### C BC, ADIFF, ANEU, LIPID, CMP, TSH, PSA #### [place] [address] #### GFR #### [address] [address] CO2 [Moles/Vol] 31 mmol/L Normal 23-31 [facility] ([place] Comment on above: Performed By: #### C BC, ADIFF, ANEU, LIPID, CMP, TSH, PSA #### [place] [address] #### GFR #### [address] [address] Creatinine [Mass/Vol] 0.87 mg/dL Normal 0.70-1.30 [facility] ([place]) Comment on above: Performed By: #### C BC, ADIFF, ANEU, LIPID, CMP, TSH, PSA #### [address] [address] #### GFR #### [address] [address] Electrolyte Balance 5.0 mEq/L Normal [facility] ([place]) Comment on above: Performed By: #### C BC, ADIFF, ANEU, LIPID, CMP, TSH, PSA #### [address] [address] #### GFR #### [address] [address] Globulin 2.8 G/dL Normal [facility] ([place] Comment on above: Performed By: #### C BC, ADIFF, ANEU, LIPID, CMP, TSH, PSA #### [place] [address] #### GFR #### [address] [address] Glucose [Mass/Vol] 91 mg/dL Normal 80-115 [facility] ([place]) Comment on above: Performed By: #### C BC, ADIFF, ANEU, LIPID, CMP, TSH, PSA #### [address] [address] #### GFR #### [address] [address] Potassium [Moles/Vol] 4.6 mmol/L Normal 3.5-5.1 [facility] ([place]) Comment on above: Performed By: #### C BC, ADIFF, ANEU, LIPID, CMP, TSH, PSA #### [address] [address] #### GFR #### [address] [address] Sodium [Moles/Vol] 143 mmol/L Normal 136-145 [facility] ([place]) Comment on above: Performed By: #### C BC, ADIFF, ANEU, LIPID, CMP, TSH, PSA #### [address] [address] #### GFR #### [address] [address] Total Protein 6.5 G/dL Normal 6.4-8.2 [facility] ([place] Comment on above: Performed By: #### C BC, ADIFF, ANEU, LIPID, CMP, TSH, PSA #### [place] [address] #### GFR #### [address] [address] Urea nitrogen [Mass/Vol] 6 mg/dL Low 7-18 [facility] ([place] Comment on above: Performed By: #### C BC, ADIFF, ANEU, LIPID, CMP, TSH, PSA #### [place] [address] #### GFR #### [address] [address] LIPIDon 07-14-2021 Cholesterol [Mass/Vol] 125 mg/dL Normal 0-200 [facility] ([place]) Comment on above: Result Comment: Chol esterol Reference Interval: Less than 200 Desirable 200-239 Borderline high risk 240 and above High risk Performed By: #### C BC, ADIFF, ANEU, LIPID, CMP, TSH, PSA #### [place] [address] #### GFR #### [address] [address] Cholesterol in HDL [Mass/Vol] 55 mg/dL Normal 40-60 [facility] ([place] Comment on above: Performed By: #### C BC, ADIFF, ANEU, LIPID, CMP, TSH, PSA #### [address] [address] #### GFR #### [address] [address] Cholesterol in LDL [Mass/Vol] 65 mg/dL Normal 0-130 [facility] ([place] Comment on above: Performed By: #### C BC, ADIFF, ANEU, LIPID, CMP, TSH, PSA #### [address] [address] #### GFR #### [place] [address] Triglyceride [Mass/Vol] 25 mg/dL Normal 0-150 A [facility] ([place]) Comment on above: Result Comment: Trig lyceride Reference Interval: Less than 150 Normal 150-199 Borderline high risk 200-499 High risk 500 or higher Very high risk Performed By: #### C BC, ADIFF, ANEU, LIPID, CMP, TSH, PSA #### [place] [address] #### GFR #### [place] [address] PSAon 07-14-2021 Prostate Specific Antigen 0.55 ng/mL Normal 0.00-4.00 [facility] ([place] Comment on above: Performed By: #### C BC, ADIFF, ANEU, LIPID, CMP, TSH, PSA #### [place] [address] #### GFR #### [place] [address] TSHon 07-14-2021 TSH Qn 1.68 m[IU]/L Normal 0.36-3.74 [facility] ([place] Comment on above: Performed By: #### C BC, ADIFF, ANEU, LIPID, CMP, TSH, PSA #### [place] [address] #### GFR #### [place] [address] RPPCRon 07-02-2021 Adenovirus (RPPCR) Negative Normal NEGAT [facility] ([place]) Comment on above: Result Comment: Perf ormed By: [facility] Tutor [address] [place] [address] Shift Superintendent [employer]: Anant Mcgee III#: [id number] Phone#: Performed By: #### R PPCR #### [address] [address] C. pneumoniae Negative Normal [facility] ([place]) Comment on above: Result Comment: Perf ormed By: [place] [address] Shift Superintendent [employer]: Javon Carter III, M.D. CLIA#: [id number] Phone#: Performed By: #### R PPCR #### [address] [address] Coronavirus 229E (Not COVID19) Negative Normal [facility] ([place]) Comment on above: Result Comment: Perf ormed By: [place] [address] Shift Superintendent [employer]: Javon Carter III, M.D. CLIA#: [id number] Phone#: Performed By: #### R PPCR #### [address] [address] Coronavirus HKU1 (Not COVID19) Negative Normal [facility] ([place]) Comment on above: Result Comment: Perf ormed By: [place] [address] Shift Superintendent [employer]: Javon Catrer III, M.D. CLIA#: [id number] Phone#: Performed By: #### R PPCR #### [address] [address] Coronavirus NL63 (Not COVID19) Negative Normal [facility] ([place]) Comment on above: Result Comment: Perf ormed By: [place] [id number] Shift Superintendent [employer]: Javon Carter III, M.D. CLIA#: [id number] Phone#: Performed By: #### R PPCR #### [address] [address] Coronavirus OC43 (Not COVID19) Negative Normal [facility] ([place]) Comment on above: Result Comment: Perf ormed By: [place] [id number] Shift Superintendent [employer]: Javon Carter III, M.D. CLIA#: [id number] Phone#: Performed By: #### R PPCR #### [address] [address] H Metapneumovirus Negative Normal [facility] ([place]) Comment on above: Result Comment: Perf ormed By: [place] [address] Shift Superintendent [employer]: Javon Carter III, M.D. CLIA#: [id number] Phone#: Performed By: #### R PPCR #### [address] [address] Human Bocavirus Negative Normal [facility] ([place] Comment on above: Result Comment: Perf ormed By: [facility] [address] [place] [address] Shift Superintendent [employer]: Javon Carter III, M.D. CLIA#: [id number] Phone#: Performed By: #### R PPCR #### [address] [address] Influenza A H1 Virus Test Not Indicated Abnormal [facility] ([place] Comment on above: Result Comment: Perf ormed By: [facility] [address] [place] [address] Shift Superintendent [employer]: Javon Carter III, M.D. CLIA#: [id number] Phone#: Performed By: #### R PPCR #### [address] [address] Influenza A H3 Virus Test Not Indicated Abnormal [facility] ([place] Comment on above: Result Comment: Perf ormed By: [facility] [address] [place], [place] [id number] Shift Superintendent [employer]: Javon Carter III, M.D. CLIA#: [id number] Phone#: Performed By: #### R PPCR #### [address] [address] Influenza A Virus Negative Normal [facility] ([place]) Comment on above: Result Comment: Perf ormed By: [place] [address] Shift Superintendent [employer]: Javon Carter III, M.D. CLIA#: [id number] Phone#: Performed By: #### R PPCR #### [address] [address] Influenza B Virus Negative Normal [facility] ([place] Comment on above: Result Comment: Perf ormed By: [place] [address] Shift Superintendent [employer]: Javon Carter III, M.D. CLIA#: [id number] Phone#: Performed By: #### R PPCR #### [address] [address] M. pneumoniae Negative [facility] ([place]) Comment on above: Result Comment: Perf ormed By: [place] [address] Shift Superintendent [employer]: Javon Carter III, M.D. CLIA#: [id number] Phone#: Performed By: #### R PPCR #### [address] [address] Paraflu 1 Negative Normal [facility] ([place] Comment on above: Result Comment: Perf ormed By: [place] [address] Shift Superintendent [employer]: Javon Carter III, M.D. CLIA#: [id number] Phone#: Performed By: #### R PPCR #### [address] [address] Paraflu 2 Negative Normal [facility] ([place] Comment on above: Result Comment: Perf ormed By: [place] [id number] Shift Superintendent [employer]: Javon Carter III, M.D. CLIA#: [id number] Phone#: Performed By: #### R PPCR #### [address] [address] Paraflu 3 Negative Normal [facility] ([place] Comment on above: Result Comment: Perf ormed By: [place] [id number] Shift Superintendent [employer]: Javon Carter III, M.D. CLIA#: [id number] Phone#: Performed By: #### R PPCR #### [address] [address] Paraflu 4 Negative Normal [facility] ([place] Comment on above: Result Comment: Perf ormed By: [place] [address] Shift Superintendent [employer]: Javon Carter III, M.D. CLIA#: [id number] Phone#: Performed By: #### R PPCR #### [address] [address] Resp Panel Source NASAL Normal [facility] ([place] Comment on above: Result Comment: Perf ormed By: [place] [id number] Shift Superintendent [employer]: Javon Carter III, M.D. CLIA#: [id number] Phone#: Performed By: #### R PPCR #### [address] [address] Resp Syncytial Virus A Negative Normal [facility] Comment on above: Result Comment: Perf ormed By: [place] [id number] Shift Superintendent [employer]: Javon Carter III, M.D. CLIA#: [id number] Phone#: Performed By: #### R PPCR #### [place] [address] [place], [place] [address] Resp Syncytial Virus B Negative Normal NEGAT [facility] ([place] Comment on above: Result Comment: Perf ormed By: [address] [address] Shift Superintendent [employer]: Javon Carter III, M.D. CLIA#: [id number] Phone#: Performed By: #### R PPCR #### [address] [address] Rhino/Enterovirus Positive Abnormal NEGAT [facility] ([place] Comment on above: Result Comment: Perf ormed By: [address] [address] Shift Superintendent [employer]: Javon Carter III, M.D. CLIA#: [id number] Phone#: Performed By: #### R PPCR #### [address] [address] RV Panel Comment See Below Normal [facility] ([place] Comment on above: Result Comment: This test was developed and its performance characteristics determined by [facility]'s [facility] [place] ( [facility]). It has not been cleared or approved by the FDA. [facility] is regulated under CLIA as qualified to perform high complexity testing. This test is used for clinical purposes. It should not be regarded as investigational or for research. Performed By: [address] [address] Shift Superintendent [employer]: Javon Carter III, M.D. CLIA#: [id number] Phone#: Performed By: #### R PPCR #### [address] [address] [id number] 06-28-2021 Date of Onset [id number] Invalid Interpretation Code [facility] ([place] Comment on above: Performed By: #### C OVD19 #### [address] [address] Employed in Healthcare No [facility] ([place]) Comment on above: Performed By: #### C OVD19 #### [place] [address] First Test No [facility] ([place] Comment on above: Performed By: #### C OVD19 #### [facility] [address] [place] [address] Hospitalized No [facility] ([place] Comment on above: Performed By: #### C OVD19 #### [facility] [address] [place] [address] ICU No [facility] ([place] Comment on above: Performed By: #### C OVD19 #### [place] [address] Not [facility] ([place] Comment on above: Performed By: #### C OVD19 #### [place] [address] Resides in Congregate Care Setting No [facility] ([place] Comment on above: Performed By: #### C OVD19 #### [place] [address] SARS-CoV-2 (COVID-19) RNA MILAN+probe Ql (Unsp spec) Negative Normal Negative [facility] ([place] Comment on above: Performed By: #### C OVD19 #### [place] [address] SARS-CoV-2 (COVID-19) RNA MILAN+probe Ql (Unsp spec) [facility] ([place]) Comment on above: Result Comment: Nega tive results do not preclude SARS-CoV-2 infection and should not be used as the sole basis for patient management decisions. Negative results must be combined with clinical observations, patient history, and epidemiological information. There is a risk of false negative values resulting from improperly collected, transported, or handled specimens. There is a risk of false negative values due to the presence of sequence variants in the pathogen targets of the assay, procedural errors, amplification inhibitors in specimens, or inadequate numbers of organisms for amplification. GIAN SARS-CoV-2 Assay is a Real-Time reverse-transcriptase polymerase chain reaction (RT-PCR) based qualitative in vitro diagnostic test intended for the qualitative detection of nucleic acid from the SARS-CoV-2 in nasopharyngeal swab specimens collected from individuals suspected of COVID-19 by their healthcare provider. Testing is limited to laboratories certified under the Clinical Laboratory Improvement Amendments of 1988 (CLIA), 42 U.S.C. ?263a, to perform moderate and high complexity tests. COVID-19 Int Performed By: #### C OVD19 #### [address] [address] Symptomatic as Defined by CDC Yes Normal [facility] ([place] Comment on above: Performed By: #### C OVD19 #### [address] [address] Vital Signs Date Time Vital Sign Value Performing Clinician Shayne stanley 01-25-2025 09:16-0400 Body height 185.[address] Joe Squires DO Work Phone: [facility] 01-25-2025 09:16-0400 Body mass index (BMI) [Ratio] 30.9 kg/m2 Dr. Joe Squires DO Work Phone: [facility] 01-25-2025 09:16-0400 Body temperature 97.8 [degF] Dr. Joe Squires DO Work Phone: [facility] 01-25-2025 09:16-0400 Body weight 106.[address] Joe Squires DO Work Phone: [facility] 01-25-2025 09:16-0400 Diastolic blood pressure 82 mm[Hg] Dr. Joe Squires DO Work Phone: [facility] 01-25-2025 09:16-0400 Heart rate 63 /min Dr. Joe Squires DO Work Phone: [facility] 01-25-2025 09:16-0400 Respiratory rate 18 /min Dr. Joe Squires DO Work Phone: [facility] 01-25-2025 09:16-0400 SaO2% (BldA) [Mass fraction] 96 % Dr. Joe Squires DO Work Phone: [facility] 01-25-2025 09:16-0400 Systolic blood pressure 122 mm[Hg] Dr. Joe Squires DO Work Phone: [facility] 12-28-2024 06:39-0400 Body temperature 98.3 [degF] Dr. Joe Squires DO Work Phone: [facility] 12-28-2024 06:39-0400 Diastolic blood pressure 96 mm[Hg] Dr. Joe Squires DO Work Phone: [facility] 12-28-2024 06:39-0400 Heart rate 83 /min Dr. Joe Squires DO Work Phone: [facility] 12-28-2024 06:39-0400 Respiratory rate 14 /min Dr. Joe Squires DO Work Phone: [facility] 12-28-2024 06:39-0400 SaO2% (BldA) [Mass fraction] 96 % Dr. Joe Squires DO Work Phone: [facility] 12-28-2024 06:39-0400 Systolic blood pressure 156 mm[Hg] Dr. Joe Squires DO Work Phone: [facility] 12-01-2024 11:15-0500 Body temperature 96.8 [degF] Dr. Joe Squires DO Work Phone: [facility] 12-01-2024 11:15-0500 Diastolic blood pressure 94 mm[Hg] Dr. Joe Squires DO Work Phone: [facility] 12-01-2024 11:15-0500 Heart rate 55 /min Dr. Joe Squires DO Work Phone: [facility] 12-01-2024 11:15-0500 Respiratory rate 16 /min Dr. Joe Squires DO Work Phone: [facility] 12-01-2024 11:15-0500 SaO2% (BldA) [Mass fraction] 96 % Dr. Joe Squires DO Work Phone: [facility] 12-01-2024 11:15-0500 Systolic blood pressure 121 mm[Hg] Dr. Joe Squires DO Work Phone: [facility] 12-01-2024 08:50-0500 Body mass index (BMI) [Ratio] 29.6 kg/m2 Dr. Joe Squires DO Work Phone: [facility] 12-01-2024 08:50-0500 Body weight [address] Joe Squires DO Work Phone: [facility] 11-30-2024 13:20-0500 Body mass index (BMI) [Ratio] 30.1 kg/m2 Dr. Joe Squires DO Work Phone: [facility] 11-30-2024 13:20-0500 Body temperature 97.5 [degF] Dr. Joe Squires DO Work Phone: [facility] 11-30-2024 13:20-0500 Body weight 103.[address] Joe Squires DO Work Phone: [facility] 11-30-2024 13:20-0500 Diastolic blood pressure 82 mm[Hg] Dr. Joe Squires DO Work Phone: [facility] 11-30-2024 13:20-0500 Heart rate 70 /min Dr. Joe Squires DO Work Phone: [facility] 11-30-2024 13:20-0500 Respiratory rate 16 /min Dr. Joe Squires DO Work Phone: [facility] 11-30-2024 13:20-0500 SaO2% (BldA) [Mass fraction] 98 % Dr. Joe Squires DO Work Phone: [facility] 11-30-2024 13:20-0500 Systolic blood pressure 140 mm[Hg] Dr. Joe Squires DO Work Phone: [facility] 12-17-2023 08:48-0500 Body height 185.42 cm REPAIRER PUMPJethro Varela REPAIRER PUMP Work Phone: [facility] 12-17-2023 08:48-0500 Body mass index (BMI) [Ratio] 30.4 kg/m2 REPAIRER [employer]-C Daryl Varela REPAIRER PUMP Work Phone: [facility] 12-17-2023 08:48-0500 Body temperature 98.8 [degF] REPAIRER PU[employer]-C Daryl Varela REPAIRER PUMP Work Phone: [facility] 12-17-2023 08:48-0500 Body weight 104.77 kg REPAIRER PU[employer]-C Daryl Varela REPAIRER PUMP Work Phone: [facility] 12-17-2023 08:48-0500 Diastolic blood pressure 82 mm[Hg] REPAIRER PUMP-C Daryl Varela REPAIRER PUMP Work Phone: [facility] 12-17-2023 08:48-0500 Heart rate 90 /min REPAIRER PUMP-C Daryl Varela REPAIRER PUMP Work Phone: [facility] 12-17-2023 08:48-0500 Respiratory rate 16 /min REPAIRER PUMP-C Daryl Varela REPAIRER PUMP Work Phone: [facility] 12-17-2023 08:48-0500 SaO2% (BldA) [Mass fraction] 98 % REPAIRER PUMP-C Daryl Varela REPAIRER PUMP Work Phone: [facility] 12-17-2023 08:48-0500 Systolic blood pressure 122 mm[Hg] REPAIRER PUMP-C Daryl Varela REPAIRER PUMP Work Phone: [facility] 05-31-2022 13:48-0400 Body height 185.[address] Bong Walter Work Phone: [facility] Work Phone: 05-31-2022 13:48-0400 Body mass index (BMI) [Ratio] 30.2 kg/m2 Dr. Bong Walter Work Phone: [facility] Work Phone: 05-31-2022 13:48-0400 Body temperature 97.4 [degF] Dr. Bong Walter Work Phone: [facility] Work Phone: 05-31-2022 13:48-0400 Body weight 103.[address] Bong Walter Work Phone: [facility] Work Phone: 05-31-2022 13:48-0400 Diastolic blood pressure 100 mm[Hg] Dr. Bong Walter Work Phone: [facility] Work Phone: 05-31-2022 13:48-0400 Heart rate 83 /min Dr. Bong Walter Work Phone: [facility] Work Phone: 05-31-2022 13:48-0400 Respiratory rate 16 /min Dr. Bong Walter Work Phone: [facility] Work Phone: 05-31-2022 13:48-0400 SaO2% (BldA) [Mass fraction] 96 % Dr. Bong Walter Work Phone: [facility] Work Phone: 05-31-2022 13:48-0400 Systolic blood pressure 130 mm[Hg] Dr. Bong Walter Work Phone: [facility] Work Phone: 05-07-2022 15:44-0400 Body temperature 98.6 [degF] Dr. Bong Walter Work Phone: [facility] Work Phone: 05-07-2022 15:44-0400 Diastolic blood pressure 86 mm[Hg] Dr. Bong Walter Work Phone: [facility] Work Phone: 05-07-2022 15:44-0400 Heart rate 94 /min Dr. Bong Walter Work Phone: [facility] Work Phone: 05-07-2022 15:44-0400 Respiratory rate 14 /min Dr. Bong Walter Work Phone: [facility] Work Phone: 05-07-2022 15:44-0400 SaO2% (BldA) [Mass fraction] 96 % Dr. Bong Walter Work Phone: [facility] Work Phone: 05-07-2022 15:44-0400 Systolic blood pressure 160 mm[Hg] Dr. Bong Walter Work Phone: [facility] Work Phone: Encounters Encounter Date Encounter Type Care Provider Facility Start: 01-25-2025 End: 01-25-[address] Jessica Rivera MD -[facility] Work Phone: Start: 01-25-2025 End: 01-25-[address] Joe Squires DO Work Phone: [facility] Work Phone: Start: 01-25-2025 End: 01-25-2025 ambulatory Joe Squires Facility:[facility] Start: 12-28-2024 End: 12-28-2024 Patient encounter procedure Oleksandr Lyon ME -[facility] Work Phone: Start: 12-28-2024 End: 12-28-2024 ambulatory Joe Squires [facility] Start: 12-01-2024 ambulatory Joe Squires Facilit y:[facility] Start: 12-01-2024 Non-patient / Non-visit Aditya Corea nd, DO -[facility] Start: 12-01-2024 End: 12-01-2024 Admission to same day surgery center Aditya Cummings DO -Endoscopy Work Phone: Start: 12-01-2024 End: 12-01-2024 ambulatory Joe Squires Facility:[facility] Start: 11-30-2024 End: 11-30-[address] Joe Bauer DO -[facility] Work Phone: Start: 11-30-2024 End: 11-30-2024 ambulatory Joe Squires Facility:[facility] Start: 09-22-2024 ambulatory Joe Squires Facilit y:[facility] Start: 09-21-2024 End: 09-21-2024 ambulatory Joe R Shaw Facility:[facility] Start: 09-15-2024 End: 09-15-2024 ambulatory Joe Squires Facility:[facility] Start: 05-30-2024 End: 05-30-2024 ambulatory Joe Squires Facility:[facility] Start: 03-31-2024 End: 03-31-2024 ambulatory Joe Squires Facility:[facility] Start: 03-09-2024 End: 03-09-2024 ambulatory Joe Bauer [facility] Facility:[facility] Start: 12-17-2023 End: 12-17-2023 ambulatory REPAIRER PUMP-C Daryl Varela REPAIRER PUMP Work Phone: [facility] Work Phone: Start: 12-17-2023 End: 12-17-2023 Encounter for general adult medical examination without abnormal findings REPAIRER PUMP-C Daryl Varela REPAIRER PUMP Work Phone: [facility] Start: 12-17-2023 End: 12-17-2023 Patient encounter procedure REPAIRER PUMP-C Daryl Varela REPAIRER PUMP Work Phone: [facility] Work Phone: Start: 12-10-2023 End: 12-10-2023 ambulatory REPAIRER PUMP-C Daryl Varela REPAIRER PUMP Work Phone: [facility] Work Phone: Start: 12-10-2023 End: 12-10-2023 Patient encounter procedure REPAIRER PUMP-C Daryl Varela REPAIRER PUMP Work Phone: [facility] Start: 11-19-2023 End: 11-19-2023 Patient encounter procedure REPAIRER PUMP-C Daryl Varela REPAIRER PUMP Work Phone: [facility] Work Phone: Start: 05-31-2022 End: 05-31-[address] Bong Walter Work Phone: [facility] Work Phone: Start: 05-31-[address] Cain Walter Work Phone: [facility] Start: 05-31-2022 End: 05-31-2022 Encounter for general adult medical examination without abnormal findings Dr. Bong Walter Work Phone: [facility] Start: 05-31-2022 End: 05-31-[address] Bong Walter Work Phone: [facility] Start: 05-07-2022 End: 05-07-[address] Bong Walter Work Phone: [facility] Start: 09-13-2021 End: 09-13-[address] CHRISTOPH MORALES DO [facility] Start: 08-19-[address] Cain Walter Work Phone: [facility] Start: 07-31-2021 End: 07-31-2021 Patient encounter procedure LORENA JARQUIN [facility] Start: 07-26-2021 End: 07-26-[address] OLEKSANDR CUEVAS MD [facility] Start: 09-30-2019 Patient encounter procedure UNKNOWN PROVIDER Facility:[facility] Procedures Date Procedure Procedure Detail Performing Clinician Start: 01-25-2025 X-ray of chest, PA a nd lateral views Dr. Joe Squires DO Work Phone: Start: 08-11-2015 History of arthrosco pic procedure on shoulder DR OLEKSANDR CUEVAS MD Start: 11-02-2004 History of repair of musculotendinous cuff of shoulder DR OLEKSANDR CUEVAS MD Comment on above: right, Dr. 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 Bong Walter Work Phone: History of operative procedure on knee History of left knee replacement Dr. Bong Walter Work Phone: Plan of Treatment Date Care Activity Detail Author Start: 01-25-2025 Evaluation of diagno stic study results [facility] Start: 12-01-2024 Colonoscopy w/biopsy single/multiple COLONOSCOPY AND BIOPSY [facility] Start: 12-01-2024 Patient discharge [facility] CBC W Auto Different ial panel - Blood [facility] Work Phone: Lipid 1996 panel - S karla or Plasma [facility] Work Phone: Patient referral [facility] Work Phone: Prostate specific antigen measurement [facility] Work Phone: Thyroid stimulating hormone measurement [facility] Work Phone: Troponin T.cardiac [Mass/volume] in Serum or Plasma by High sensitivity method [facility] Immunizations Immunization Date Immunization Notes Care Provider [facility] 09-21-2024 Seasonal trivalent influenza vaccine, adjuvanted, preservative free Dr. Joe Squires DO Work Phone: [facility] 08-19-2023 influenza, injectabl e, quadrivalent, preservative free Dr. Joe Squires DO Work Phone: [facility] 08-08-2022 influenza, injectabl e, quadrivalent, preservative free REPAIRER PUMPJethro Varela REPAIRER PUMP Work Phone: [facility] 09-25-2021 Covid (Pfizer) Dr. Joe krishna DO Work Phone: [facility] 07-25-2021 influenza, injectabl e, quadrivalent, preservative free Dr. Joe Squires DO Work Phone: [facility] 07-25-2021 influenza, injectabl e, quadrivalent, contains preservative; Translations: [Fluarix PF Quadrivalent ] DR OLEKSANDR CUEVAS MD [facility] 01-12-2021 Covid (Pfizer) Dr. Bong Craft umoff Work Phone: [facility] 12-22-2020 Covid (Pfizer) Dr. Bong Craft umoff Work Phone: [facility] 07-24-2020 influenza, injectabl e, quadrivalent, preservative free; Translations: [Fluarix PF Quadrivalent ] DR OLEKSANDR CUEVAS MD [facility] 11-13-2019 influenza, injectabl e, quadrivalent, preservative free Dr. Joe Squires DO Work Phone: [facility] 07-13-2019 influenza virus vaccine, unspecified formulation DR OLEKSANDR CUEVAS MD [facility] 07-22-2018 influenza, injectabl e, quadrivalent, preservative free Dr. Joe Squires DO Work Phone: [facility] 05-31-2016 tetanus toxoid, redu margret diphtheria toxoid, and acellular pertussis vaccine, adsorbed Dr. Joe Squires DO Work Phone: [facility] Payers Date Payer Category Payer Medicare [id number] 2024 Medicare [id number] 2024 Self-pay [id number] 2023 Unknown [id number] 2019 Unknown [id number] 1960 Unknown [id number]. 732 Private Health Insurance [facility] [id number] Unknown SELF INS [facility] [id number] Unknown [id number] Unknown [id number]. 462 Unknown [id number] 2.16.840.1.304847.3.579.2. 462 Unknown [id number] 2.16.840.1.064627.3.579.2. 462 Unknown [id number] 2.16.840.1.189877.3.579.2. 462 Unknown [id number] 2.16.840.1.111688.3.579.2. 462 Unknown [id number] 2.16.840.1.125997.3.579.2. 462 Unknown [id number] 2.16.840.1.045202.3.579.2. 462 Unknown [id number] 2.16.840.1.549192.3.579.2. 462 Unknown [id number] 2.16.840.1.558719.3.579.2. 462 Unknown [id number] 2.16.840.1.208189.3.579.2. 462 Unknown [id number] 2.16.840.1.571458.3.579.2. 462 Unknown [id number] [id number]. 462 Social History Date Type Detail Facility Start: 07-23-2019 End: 11-29-2024 Ex-smoker (finding) [facility] Comment on above: no tobacco smoke exp osure Sex Assigned At [facility] Start: 05-31-2022 End: 12-17-2023 Tobacco smoking status NHIS Unknown if ever smoked [facility] Start: 1960 Sex Assigned At [facility] Start: 01-31-2025 Sex Male (finding) [facility] Medical Equipment Procedure Code Equipment Code Equipment Origin al Text Equipment Identifier Dates ([id number]) Metal-backed pat sherwin prosthesis ()[id number] [id number] FDA Start: 08-20-2021 ([id number]) Coated knee femu r prosthesis ()[id number] [id number] FDA Start: 08-20-2021 ([id number]) Coated knee tibi a prosthesis ()[id number] [id number] FDA Start: 08-20-2021 ([id number]) Tibial insert ()[id number] FDA Start: 08-20-2021 Goals Date Patient Goal Desired Activity /State Mental Status Date Assessment Result Facility 12-01-2024 Cognitive function Voice/Name [facility] Work Phone: Clinical Notes 07-01-2021 to 01-26-2025 Note Date & Type Note Facility 01-26-2025 Radiology Diagnostic study note [facility] Services [address] [place], [place] [address] Chest PA and Lateral MR#: [id number] Acct: [id number] Name: REX ASRAH Cain Rep #: [id number] : 1960 M 64 From: Merrill Marquez MD PCP: Dr. Joe Squires, DO Status: RE G CLI Study:Chest PA and Lateral Date of Exam: 01/25/25 Exam# [id number] Ordering Dr: Jessica Rivera MD PROCEDURE: CHEST PA AND LATERAL 01/25/2025 REASON FOR EXAM: SOB TECHNIQUE: Frontal and lateral views of the chest. COMPARISON: None available FINDINGS: The lungs appear clear. Pulmonary vascularity appears within limits. No pleural effusion. The cardiac and mediastinal contours appear within limits. Mid to lower thoracic spine spondylosis/discogenic change. RAD/Chest PA and Lateral IMPRESSION: No evidence of acute disease. Reading Location: [id number] CC: Dr. Jessica Rivera MD; Dr. Joe Squires DO ~ Garage Helper: Signed [facility] 12-01-2024 Note [facility] Medical Records Department [address] [place] [address] History Physical Exam 12/01/24 1018 MR#: [id number] Acct: [id number] Name: REX SARAH Rep #: [id number] : 1960 64 From: Aditya Cummings DO PCP: Dr. Joe Squires DO Status:REG [facility] Location: EN HPI - General General Date of Admission: 12/01/24 Date of Service: 12/01/24 Chief Complaint: Screening colonoscopy HPI Narrative REX SARAH, is a 64 M who presents today for screening colonoscopy. He has not had a colonoscopy in approximately 19 years. Already has a family history of colon cancer. He has a past medical history of gastroesophageal reflux disease for which is controlled on pantoprazole and some mild arthritis which is controlled on meloxicam. [facility] Medical History Restless legs Heartburn Encounter for preventative adult health care examination Hx of degenerative disc disease Hx of osteoarthritis History of hearing problem History of back problems Wears hearing aid Wears glasses Arthritis Former smoker Leg cramps History of pain when walking History of stress test Home Medications ???Medication ???Instructions ???Recorded ???Last Taken ???Type meloxicam 15 mg tablet 15 mg PO DAILY PRN arthritis #90 09/15/24 Unknown Rx tabs aspirin 81 mg tablet,delayed 81 mg PO QDAY 09/22/24 Unknown His tory release (Adult Low Dose Aspirin) diphenhydramine HCl 25 mg capsule 25 mg PO Q8H PRN sleep 11/29/24 U nknown History (Benadryl) pantoprazole 40 mg tablet,delayed 40 mg PO QDAY #30 tabs 11/30/24 U nknown Rx release Allergy/AdvReac Type Severity Reaction Status Date / Time No Known Allergies Allergy Verified 12/01/24 08:47 Family History Daughter Anemia Anxiety Thyroid disorder Grandmother Colon cancer Paternal Mother Diabetes Myocardial infarction Heart disease Hypertension Father Dementia Brother Diabetes Surgical History Hx of colonoscopy History of total right knee replacement History of left knee replacement Hx of rotator cuff surgery Hx of rotator cuff surgery Social History household members: spouse housing: house 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 sexually active: Yes Smoking Status: Former smoker quit status: quit date established alcohol intake: current alcohol intake frequency: holidays/special occasions only substance use type: does not use what type of physical activity do you participate in: walking and bicycling frequency: 3-4 times per week seatbelt use: always do you feel safe at home: Yes ROS Constitutional Constitutional: Denies fatigue, fever(s), poor appetite, weight gain or weight loss Gastrointestinal Gastrointestinal: Denies belching, bloating, change in bowel habits, change in stool character, chewing difficulty, coffee ground emesis, constipation, cramping, diarrhea, dyspepsia, dysphagia, early satiety, excessive flatus, fecal incontinence, heartburn, hematemesis, hematochezia, hemorrhoids, loose stools, melena, nausea, odynophagia, rectal bleeding, tenesmus, vomiting or weight changes Vital Signs Vital Signs Vital Signs: 12/01/24 08:50 12/01/24 08:50 12/01/24 09:39 Temperature 97.1 F L 97.1 F L Temperature Source Temporal Pulse Rate 68 68 Respiratory Rate 16 16 Respiratory Pattern Normal Blood Pressure 133/89 H 133/89 H Blood Pressure Mean 103 Blood Pressure Source Monitor Blood Pressure Position Sitting Blood Pressure Location Left Arm Pulse Ox 99 99 Oxygen Delivery Method Room Air Room Air Weight Weight: 224 lb 13.944 oz Body Mass Index (BMI) 29.6 Physical Exam Const alert, oriented x3, no apparent distress and healthy appearing General Appearance: cooperative GI normal to inspection, nondistended, normoactive bowel sounds, soft to palpation, non-tender and non- distended Percussion: normal to percussion Rectal Exam: deferred Assessment Plan Assessment/Plan (1) Encounter for screening for malignant neoplasm of colon: PLAN: He was explained alternatives , benefits, risks of the procedure including not withstanding bleeding, infection, sepsis, perforation, need for emergent urgent . He will have an ASA of 3. 12/01/24 1020 Cosigner Signature (if applicable): CC: Dr. Joe Squires, ; Aditya Friend, DO Signed [facility] 11-30-2024 Evaluation note Diagnosis Onset Date Resolution Indigestion acute November 1:02pm Encounter for screening for malignant neoplasm of colon resolved December 01, 025 8:30am Shortness of breath noneactive January 25, 2025 8:14am [facility] Work Phone: 1(532) 252-561510-20-2021 Note. MICRO - Microbiology PROCEDURE: MRSA PCR [*1] SOURCE: Nares BODY SITE: COLLECTED DATE/TIME: 07/31/2021 07:44 EDT RECEIVED DATE/TIME: 07/31/2021 14:06 EDT START DATE/TIME: 07/31/2021 14:06 EDT FREE TEXT SOURCE: FINAL REPORTS Final Report [] Verified Date/Time/Personnel: 07/31/2021 23:41 EDT MRSA NEGATIVE. MRSA DNA not detected by Real-Time Polymerase Chain Reaction (PCR). A negative result may be due to intermittent colonization. Colonization may vary depending on patient treatment, patient status or exposure to high risk environments. As with all PCR based in vitro tests, extremely low levels of target below the limit of detection of the assay may be detected, but results may not be reproducible. Performing Locations *1: This test was performed at: [facility], [address] [place] [address], [id number] , [facility] ([place])Comment on above:Performed By: #### CTHROAT #### [address] [id number] Note. MICRO - Microbiology PROCEDURE: Throat Culture [*1] SOURCE: Throat BODY SITE: COLLECTED DATE/TIME: 06/27/2021 12:11 EDT RECEIVED DATE/TIME: 06/28/2021 15:13 EDT START DATE/TIME: 06/28/2021 15:13 EDT FREE TEXT SOURCE: FINAL REPORTS Final Report [] Verified Date/Time/Personnel: 07/01/2021 08:38 EDT Few Beta Hemolytic Streptococci, Group F Sensitivity testing not indicated. Normal throat irma present. PRELIMINARY REPORTS Preliminary Report [] Verified Date/Time/Personnel: 06/30/2021 07:27 EDT Culture results pending. Preliminary Report [] Verified Date/Time/Personnel: 06/29/2021 07:42 EDT Negative for upper respiratory pathogens at 24 hours. Performing Locations *1: This test was performed at: [facility], [address] [place] [address], [facility] , [facility] ([place])Comment on above:Performed By: #### CTHROAT #### [address] [id number] complaint+Reason for visit Narrative* Chief Complaint COVID TEST/ILL X3DAY S/EMP REQUIRED REPAIRER PUMP, EST. CARE. 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 (DOT) acute [facility] Work Phone: Evaluation note* Diagnosis Onset Date Resolution Status Encounter for examination re quired by 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 (DOT) acute Encounter for preventative adult health care examinati on acute Fatigue acute History of total right knee replacement acute Hx of essential hypertension acute Wears hearing aid acute [facility] Work Phone: Hospital Discharge instructions No data available for this section [facility] Reason for referral (narrative)[facility] Work Phone: Summary Purpose Family History No Family History Records Found Relationship Condition Age at Onset Recorded Date/T rose daughter Anemia Unknown Anxiety Unknown Disorder of thyroid Unknown grandmother Malignant neoplasm of colon Unknown mother Diabetes mellitus Unknown Myocardial infarction Unknown Heart disease Unknown Hypertension Unknown father Dementia Unknown brother Diabetes mellitus Unknown Advance Directives No Advanced Directives Records Found Advance Directive Response Recorded Date/ Time Living Will Yes November 20 8:39am Power of Care Team Assistant Yes November 20, 2021 8:39am Advance Directive Response Recorded Date/ Time Living Will Yes August 08 2:47pm Power of Care Team Assistant Yes August 08, 2022 2:47pm Advance Directive Response Recorded Date/ Time Living Will Yes August 08 3:47pm Power of Care Team Assistant Yes August 08, 2022 3:47pm Advance Directive Response Recorded Date/ Time Living Will Yes November 29, 2 025 1:44pm Do you have a Healthcare Pow er of Care Team Assistant? Yes November 29, 2024 1:44pm Name of Medical Power of Care Team Assistant STACEY esposito November 29, 2024 1:44pm Chief Complaint and Reason for Visit Chief Complaint DOT PHYSICAL/SELF PA Y Reason for Visit Encounter for examin ation required by 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 (DOT) Chief Complaint DOT PHYSICAL/SELF PA Y annual Reason for Visit Encounter for examin ation required by 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 (DOT) Encounter for preventative adult health care examination Fatigue History of total right knee replacement Hx of essential hypertension Wears hearing aid Chief Complaint Admit Date stomach issues November 30, 2024 1:02pm COUGH/CONGESTION December 28, 2024 6:3 5am ACUTE - SOB January 25, 2025 8:1 4am ADD CXR January 25, 2025 9:1 1am Reason for Visit Admit Date Indigestion November 30, 2024 1:02pm Encounter for screening for malignant ne oplasm of colon December 01, 2024 8:30am Shortness of breath January 25, 2025 8:1 4am Additional Source Comments (unrecognized sect ion and content) No Status Records FoundNo Status Records FoundNo Status Records Found INFORMATION SOURCE (unrecogn ized section and content) DATE CREATED AUTHOR 10/02/2019 [facility] DATE CREATED AUTHOR AUTHOR'S ORGANIZ ATION 09/14/2021 [facility] ([place]) DATE CREATED AUTHOR AUTHOR'S ORGANIZ ATION 01/31/2025 [facility] Goals (unrecognized section and content) Goals may be documented in a n alternate section Care Teams (unrecognized sec tion and content) Team Status: Active Member Role Status Dates Dr. Bong Walter MD Family Provider Active Dr. Joe Squires DO Primary Care Provider Active Team Status: Inactive Member Role Status Dates Daryl Varela REPAIRER PUMP, REPAIRER PUMP-C Primary Care Provider, Referring P rovider Active Oleksandr Lyon PA, PA Attending Provider Active Team Status: Inactive Member Role Status Dates Dr. Joe Squires DO Primary Care Provider, Attend ing Provider Active Team Status: Inactive Member Role Status Dates Daryl Varela REPAIRER PUMP, REPAIRER PUMP-C Referring Provider Active Dr. Joe Squires DO Primary Care Provider, Attend ing Provider Active Team Status: Active Member Role Status Dates Dr. Joe Squires DO Primary Care Provider Active Team Status: Inactive Member Role Status Dates Dr. Joe Squires DO Primary Care Provider Active Start: November 30, 2024 End: November 30, 2024 Dr. Joe Squires DO Attending Provider Active Start: November 30, 2024 End: November 30, 2024 Dr. Joe Squires DO Referring Provider Active Start: November 30, 2024 End: November 30, 2024 Team Status: Inactive Member Role Status Dates Dr. Joe Squires DO Primary Care Provider Active Start: December 01, 2024 End: December 01, 2024 Dr. Joe Squires DO Referring Provider Active Start: December 01, 2024 End: December 01, 2024 Dr. Aditya Cummings DO Attending Provider Active Start: December 01, 2024 End: December 01, 2024 Team Status: Active Member Role Status Dates Dr. Joe Squires DO Primary Care Provider Active Start: December 01, 2024 Dr. Joe Squires DO Referring Provider Active Start: December 01, 2024 Dr. Aditya Cummings DO Attending Provider Active Start: December 01, 2024 Dr. Aditya Cummings DO Other Provider Active St art: December 01, 2024 Team Status: Inactive Member Role Status Dates Dr. Joe Squires DO Primary Care Provider Active Start: December 28, 2024 End: December 28, 2024 Dr. Joe Squires DO Referring Provider Active Start: December 28, 2024 End: December 28, 2024 Oleksandr JARQUIN PA Attending Provider Active Start: December 28, 2024 End: December 28, 2024 Team Status: Inactive Member Role Status Dates Dr. Joe Squires DO Primary Care Provider Active Start: January 25, 2025 End: January 25, 2025 Dr. Joe Squires DO Referring Provider Active Start: January 25, 2025 End: January 25, 2025 Dr. Jessica Rivera MD Attending Provider Active Start: January 25, 2025 End: January 25, 2025 Team Status: Inactive Member Role Status Dates Dr. Joe Squires DO Primary Care Provider Active Start: January 25, 2025 End: January 25, 2025 Dr. Jessica Rivera MD Attending Provider Active Start: January 25, 2025 End: January 25, 2025 Dr. Jessica Rivera MD Referring Provider Active Start: January 25, 2025 End: January 25, 2025 FOR RECORDS PERTAINING TO PATIENTS WHO ARE OR HAVE BEEN ENROLLED IN A CHEMICAL DEPENDENCY/SUBSTANCEABUSE PROGRAM, SOME INFORMATION MAY BE OMITTED. This clinical summary was aggregated from multiple sources. Caution should be exercised in using it in the provision of clinical care. This summary normalizes information from multiple sources, and as a consequence, information in this document may materially change the coding, format and clinical context of patient data. In addition, data may be omitted in some cases. CLINICAL DECISIONS SHOULD BE BASED ON THE PRIMARY CLINICAL RECORDS. [facility] [employer] [facility]. provides no warranty or guarantee of the accuracy or completeness of information in this document.
[2025-06-19 10:57] LABS: AST(SGOT) 24 U/L (<=37); Alanine Aminotransfer ALT/SGPT 19 U/L (<=46); Albumin, Serum 4.7 g/dL (3.4-4.8); Alkaline Phosphatase 89 U/L (40-129); Anion Gap 10 (5-15); BUN 11 mg/dL (4-19); BUN/Creat Ratio 12.6 RATIO (10-20); Calcium,Total 10.1 mg/dL (7.6-11.0); Carbon Dioxide 26.0 mmol/L (21.0-32.0); Chloride 105 mmol/L (98-108); Estimated Creatinine Clearance 106.25 ml/min (50-250); Globulin 3.3 g/dL (2.2-4.2); Glucose 99 mg/dL (70-99); Lipase 33 U/L (13-75); Potassium 4.2 mmol/L (3.3-5.1)
[2025-06-19 11:14] LABS: Color, Urine Yellow (Yellow); Glucose, Dipstick Normal (Normal); Ketone-Dipstick Negative (Negative); Leukocyte Esterase-Dipstick Negative /ul (Negative); Nitrite-Dipstick Negative (Negative); Occult Blood-Urine 10 /ul (Negative); Protein-Dipstick 15 mg/dl (Negative); Specific Gravity, Urine 1.010 (1.002-1.030); Urine Bilirubin Dipstick Negative (Negative)
[2025-06-19 11:15] LABS: Hematocrit 45.6 % (40-54); Hemoglobin 15.6 g/dL (13.0-16.5); Immature Granulocytes Count 0.020 X10^3/uL (0.0-0.0); Mean Corp Hgb Conc 34.2 g/dL (32-36); Mean Corpuscular Volume 94.8 fL (80-94); Mean Platelet Vol. 9.3 fl (6.2-12.0); NRBC Flagged by Analyzer 0 % (0-5); Platelet Count 303 K/mm3 (150-450); RBC Distribution Width CV 12.5 % (11.6-14.6); RBC Distribution Width SD 43.7 fl (35.1-43.9); Red Blood Count 4.81 M/mm3 (4.6-6.2); White Blood Count 6.0 K/mm3 (4.4-11.0)
[2025-06-19 11:41] VITALS: BP 138/70; PULSE 80; O2SAT 100
[2025-06-19 12:42] VITALS: BP 152/97; PULSE 56; RESP 16; TEMP 36.6; O2SAT 97
== END 2025-06-19 12:43 | disposition home or self-care (01) ==
PROVIDERS: Emergency Provider Emergency Medicine; PCP Family Medicine; Visit Provider Emergency Medicine
DX: R10.31 Right lower quadrant pain (principal); K59.00 Constipation, unspecified; K57.90 Diverticulosis of intestine, part unspecified, without perforation or abscess without bleeding; K21.9 Gastro-esophageal reflux disease without esophagitis; I10 Essential (primary) hypertension; Z79.82 Long term (current) use of aspirin; Z79.899 Other long term (current) drug therapy; Z87.891 Personal history of nicotine dependence
CPT/HCPCS: 74177; 80053; 81001; 83690; 85025; 99282; Q9967; A4216